=== PATIENT | male | born 1960 | race Caucasian/White ===

== ENCOUNTER 2022-11-17 19:38 | Inpatient (IN) | payer MEDICARE, MEDICAID ==
[~2022-11-17] VITALS: Ht 185.4 cm; Wt 85.5 kg
[2022-11-17 21:04] VITALS: PULSE 79; RESP 12; O2SAT 96
[2022-11-17] MEDS ORDERED: MORPHINE SULFATE 4 MG/ML SYR/VIAL IV ONE (21:15)
[2022-11-17] MEDS ORDERED: diphenhdrAMINE HCL 50 MG/1 ML VL IV ONE (21:15)
[2022-11-17] MEDS ORDERED: SODIUM CHLORIDE 0.9% 1,000 ML IVB ONE (21:15)
[2022-11-17] MEDS ORDERED: HYDROmorphone HCL 2 MG/ML VL/or syr IV ONE (21:15)
[2022-11-17] MEDS ORDERED: ONDANSETRON HCL 4 MG/2 ML VIAL IV ONE (21:15)
[2022-11-17] MEDS ORDERED: PROPOFOL 10 MG/ML 20 ML IV ONE (21:15)
[2022-11-17 23:41] LABS: Basophils # (auto) 0 10 ^3/uL (0-0.2); Basophils % (auto) 0.5 % (0.0-2.0); Eosinophils # (auto) 0.3 10 ^3/uL (0-0.8); Eosinophils % (auto) 3.4 % (0.0-7.0); Hematocrit 34.1 % (41.0-53.0); Hemoglobin 11.3 g/dL (13.5-17.5); Lymphocytes # (auto) 1.3 10 ^3/uL (0.4-5.4); Lymphocytes % (auto) 16.8 % (10.0-50.0); Mean Corpuscular Hemoglobin 32.1 pg (28.0-32.0); Mean Corpuscular Hgb Conc. 33.2 g/dL (32.0-36.0); Mean Corpuscular Volume 96.7 fL (80.0-100.0); Monocytes # (auto) 0.5 10 ^3/uL (0-1.3); Monocytes % (auto) 6.8 % (0.0-12.0); Neutrophils # (auto) 5.6 10 ^3/uL (1.6-8.6); Neutrophils % (auto) 72.5 % (37.0-80.0); Nucleated Red Blood Cells % 0.1 %; Red Blood Cells 3.52 10^6/uL (4.5-5.90); Red Cell Distribution Width 14.9 % (11.8-14.3); White Blood Cell 7.8 10^3/uL (4.4-10.8)
[2022-11-17 23:55] LABS: INR 1.14 (0.9-1.15); Partial Thromboplastin Time 29.1 SEC (24.5-34.5); Prothrombin Time 11.9 sec (9.3-11.8)
[2022-11-18] VITALS (10 sets, daily range): BP systolic 132–148; BP diastolic 72–90; PULSE 71–89; RESP 16–20; TEMP 97.5–99.1; O2SAT 93–99
[2022-11-18 00:04] LABS: Alanine Aminotransferase 20 U/L (7-40); Albumin 4.1 g/dL (3.2-4.8); Alkaline Phosphatase 60 U/L (46-116); Anion Gap 6.2 (5-15); Aspartate Aminotransferase 22 U/L (13-40); BUN/Creatinine Ratio 11.5 (10.0-20.0); Bilirubin, Total 0.2 mg/dL (0.2-1.0); Blood Urea Nitrogen 10 mg/dL (9-23); Carbon Dioxide 19.8 mmol/L (20-30); Chloride 115 mmol/L (98-107); Glucose 100 mg/dL (74-106); Magnesium 2.1 mg/dL (1.6-2.6); Potassium 3.9 mmol/L (3.5-5.1); Sodium 141 mmol/L (136-145); Total Protein 6.5 g/dL (5.7-8.2)
[2022-11-18] MEDS ORDERED: HYDROmorphone HCL 2 MG/ML VL/or syr IV ONE (01:30)
[2022-11-18] MEDS ORDERED: ONDANSETRON HCL 4 MG/2 ML VIAL IV ONE (01:30)
[2022-11-18] MEDS ORDERED: LORazepam 2MG/ML-1ML VIAL IV ONE (02:00)
[2022-11-18] MEDS ORDERED: ACETAMINOPHEN 325 MG TAB PO PRN (03:00)
[2022-11-18] MEDS ORDERED: ALBUTEROL SULF 2.5 MG/0.5ML(0.5%) NEB SOLN NEB PRN (03:00)
[2022-11-18] MEDS ORDERED: MORPHINE SULFATE INJ 2 MG/ml SYRG IV PRN (03:00)
[2022-11-18] MEDS ORDERED: ONDANSETRON HCL 4 MG/2 ML VIAL IV PRN (03:00)
[2022-11-18] MEDS ORDERED: SERT100T PO (08:33)
[2022-11-18] MEDS ORDERED: QUET25TA37 PO (08:33)
[2022-11-18] MEDS ORDERED: ALB2.5IS INH (08:33)
[2022-11-18] MEDS ORDERED: SIMV40TA18 PO (08:33)
[2022-11-18] MEDS: SERTRALINE HCL 50 MG TAB PO SCH (09:26)
[2022-11-18] MEDS: HYDROcodone-ACET 5/325MG TAB PO PRN ×2 (09:26→16:10)
[2022-11-18] MEDS: PANTOPRAZOLE 40 MG TAB PO SCH (09:26)
[2022-11-18] MEDS: QUEtiapine FUMARATE 100 MG TAB PO SCH (20:35)
[2022-11-18] MEDS: ATORVASTATIN 20 MG TAB PO SCH (20:36)
[2022-11-19] VITALS (12 sets, daily range): BP systolic 119–135; BP diastolic 64–88; PULSE 73–91; RESP 10–18; TEMP 98.3–99.7; O2SAT 92–100
[2022-11-19 05:42] LABS: Urine Bacteria NONE SEEN /hpf (None Seen); Urine Blood Negative /uL (Negative); Urine Clarity Clear (Clear); Urine Color Colorless (Yellow); Urine Protein, UAD Negative (Negative); Urine Specific Gravity 1.019 (1.001-1.035); Urine Urobilinogen Normal (Negative); Urine WBC <1 /hpf (0 - 3); Urine pH 6.5 (5.0-8.0)
[2022-11-19] MEDS ORDERED: ceFAZolin 1GM/50ML 100 ML IV ONE (06:51)
[2022-11-19 07:28] LABS: INR 1.12 (0.9-1.15); Partial Thromboplastin Time 32.2 SEC (24.5-34.5); Prothrombin Time 11.7 sec (9.3-11.8)
[2022-11-19 07:30] LABS: Alanine Aminotransferase 21 U/L (7-40); Alkaline Phosphatase 58 U/L (46-116); Anion Gap 6.6 (5-15); BUN/Creatinine Ratio 14.8 (10.0-20.0); Blood Urea Nitrogen 13 mg/dL (9-23); Calcium 9.1 mg/dL (8.5-10.1); Carbon Dioxide 25.4 mmol/L (20-30); Chloride 110 mmol/L (98-107); Glucose 108 mg/dL (74-106); Potassium 3.6 mmol/L (3.5-5.1); Sodium 142 mmol/L (136-145)
[2022-11-19 07:31] LABS: Albumin 4.2 g/dL (3.2-4.8); Aspartate Aminotransferase 17 U/L (13-40)
[2022-11-19 07:32] LABS: Bilirubin, Total 0.7 mg/dL (0.2-1.0); Total Protein 6.8 g/dL (5.7-8.2)
[2022-11-19] MEDS ORDERED: LIDOCAINE HCL (LOCAL ANESTH.) 0.5 % 50ML MDV IJ ONE (07:37)
[2022-11-19] MEDS ORDERED: TETRACAINE 1% INJ 2 ML VIAL IJ ONE (07:40)
[2022-11-19 07:42] LABS: Basophils # (auto) 0 10 ^3/uL (0-0.2); Basophils % (auto) 0.5 % (0.0-2.0); Eosinophils # (auto) 0.4 10 ^3/uL (0-0.8); Eosinophils % (auto) 5.1 % (0.0-7.0); Hematocrit 36.1 % (41.0-53.0); Hemoglobin 12.1 g/dL (13.5-17.5); Lymphocytes # (auto) 1.7 10 ^3/uL (0.4-5.4); Lymphocytes % (auto) 21.6 % (10.0-50.0); Mean Corpuscular Hemoglobin 32.3 pg (28.0-32.0); Mean Corpuscular Hgb Conc. 33.6 g/dL (32.0-36.0); Mean Corpuscular Volume 96.1 fL (80.0-100.0); Monocytes # (auto) 0.9 10 ^3/uL (0-1.3); Monocytes % (auto) 11.9 % (0.0-12.0); Neutrophils # (auto) 4.7 10 ^3/uL (1.6-8.6); Neutrophils % (auto) 60.9 % (37.0-80.0); Red Blood Cells 3.76 10^6/uL (4.5-5.90); Red Cell Distribution Width 14.7 % (11.8-14.3); White Blood Cell 7.7 10^3/uL (4.4-10.8)
[2022-11-19] MEDS ORDERED: fentaNYL CITRATE 100 MCG/2 ML VL ONE (07:42)
[2022-11-19] MEDS ORDERED: MORPHINE SULF PF 5 MG/10 ML VIAL ONE (07:42)
[2022-11-19] MEDS ORDERED: GLYCOPYRROLATE 0.2 MG/ML 1ML VIAL ONE (07:43)
[2022-11-19] MEDS ORDERED: PHENYLEPHRINE HCL 10 MG/ML VL ONE (07:43)
[2022-11-19] MEDS ORDERED: KETOROLAC TROMETH 30 MG/ML 1ML VIAL ONE (07:43)
[2022-11-19] MEDS ORDERED: PROPOFOL 10 MG/ML 20 ML IV ONE (07:43)
[2022-11-19] MEDS ORDERED: DexAMETHasone SOD PHOS 10MG/1ML VIAL INJ ONE (07:43)
[2022-11-19] MEDS ORDERED: ONDANSETRON HCL 4 MG/2 ML VIAL ONE (07:43)
[2022-11-19] MEDS ORDERED: ePHEDrine SULFATE 50 MG/ML AMP ONE (07:43)
[2022-11-19] MEDS ORDERED: MIDAZOLAM HCL 2MG/2ML 2ml VIAL (1mg/ml) ONE (07:44)
[2022-11-19] MEDS ORDERED: FAMOTIDINE (10MG/ML) 2ML VL IV ONE (07:45)
[2022-11-19] MEDS ORDERED: KETOROLAC TROMETH 30 MG/ML 1ML VIAL IV PRN (09:00)
[2022-11-19] MEDS ORDERED: DexAMETHasone SOD PHOS 10MG/1ML VIAL INJ IV PRN (09:00)
[2022-11-19] MEDS ORDERED: MORPHINE SULFATE INJ 2 MG/ml SYRG IV PRN (09:00)
[2022-11-19] MEDS ORDERED: NALOXONE HCL 0.4 MG/ML VIAL IV PRN (09:00)
[2022-11-19] MEDS ORDERED: HYDROcodone-ACET 5/325MG TAB PO PRN (09:00)
[2022-11-19] MEDS ORDERED: BISACODYL 5 MG EC TAB PO PRN (09:00)
[2022-11-19] MEDS ORDERED: ONDANSETRON HCL 4 MG/2 ML VIAL IV PRN ×3 (09:00)
[2022-11-19] MEDS ORDERED: diphenhdrAMINE HCL 50 MG/1 ML VL IV PRN (09:00)
[2022-11-19] MEDS: DOCUSATE SOD 100 MG CAP PO SCH ×2 (10:22→21:25)
[2022-11-19] MEDS: SERTRALINE HCL 50 MG TAB PO SCH (10:22)
[2022-11-19] MEDS: PANTOPRAZOLE 40 MG TAB PO SCH (10:22)
[2022-11-19] MEDS: ceFAZolin 1GM/50ML 50 ML IV SCH ×2 (15:04→20:20)
[2022-11-19] MEDS: SODIUM CHLOR 0.9% PF (SALINE LOCK) 10ML VIAL/SYR IV SCH ×2 (15:04→21:30)
[2022-11-19] MEDS: ATORVASTATIN 20 MG TAB PO SCH (21:24)
[2022-11-19] MEDS: QUEtiapine FUMARATE 100 MG TAB PO SCH (21:25)
[2022-11-20] VITALS (13 sets, daily range): BP systolic 122–154; BP diastolic 65–84; PULSE 66–95; RESP 15–20; TEMP 97.2–98.5; O2SAT 92–99
[2022-11-20] MEDS: ceFAZolin 1GM/50ML 50 ML IV SCH (04:15)
[2022-11-20] MEDS: SODIUM CHLOR 0.9% PF (SALINE LOCK) 10ML VIAL/SYR IV SCH (06:19)
[2022-11-20] MEDS: SERTRALINE HCL 50 MG TAB PO SCH (09:09)
[2022-11-20] MEDS: DOCUSATE SOD 100 MG CAP PO SCH (09:09)
[2022-11-20] MEDS: PANTOPRAZOLE 40 MG TAB PO SCH (09:10)
[2022-11-20] MEDS ORDERED: HYDR-4902 PO (10:24)
[2022-11-20] MEDS ORDERED: CEPH500C PO (10:24)
== END 2022-11-20 12:30 | disposition home or self-care (01) | DRG 505 ==
LOC: EDBD 19:38 → ER 19:41 → OVERFLOW 11-18 02:52 → EAST 11-18 06:21
PROVIDERS: ADMIT Nurse Practitioner; ATTEND Family Medicine
PROC: 0SSFXZZ Reposition Right Ankle Joint, External Approach (ICD-10-PCS; 2022-11-17)
PROC: BQ1GZZZ Fluoroscopy of Right Ankle (ICD-10-PCS; 2022-11-19)
PROC: 0QSL04Z Reposition Right Tarsal with Internal Fixation Device, Open Approach (ICD-10-PCS; principal; 2022-11-19 07:47)
DX: S93.04XA Dislocation of right ankle joint, initial encounter (principal); E78.5 Hyperlipidemia, unspecified; J44.9 Chronic obstructive pulmonary disease, unspecified; F20.9 Schizophrenia, unspecified; F17.210 Nicotine dependence, cigarettes, uncomplicated; F31.9 Bipolar disorder, unspecified; F41.9 Anxiety disorder, unspecified; Y93.89 Activity, other specified; Y92.89 Other specified places as the place of occurrence of the external cause; Y99.8 Other external cause status; W01.0XXA Fall on same level from slipping, tripping and stumbling without subsequent striking against object, initial encounter
CPT/HCPCS: 36415; 71045; 73590; 73600; 73610; 76000; 80053; 81001; 83735; 85025; 85610; 85730; 86850; 86900; 86901; 93005; 97110; 97116; 97163; G0378; J0690; J1100; J1885; J2250; J2405; J2704; J3490

== ENCOUNTER 2022-12-22 14:49 | Emergency (ER) | payer MEDICARE, MEDICAID ==
[~2022-12-22] VITALS: Ht 182.9 cm; Wt 90.0 kg
[~2022-12-22 14:49] MED LIST: ALB2.5IS INH; CEPH500C PO; HYDR-4902 PO; QUET25TA37 PO; SERT100T PO; SIMV40TA18 PO
[2022-12-22 15:43] VITALS: BP 124/77; PULSE 83; RESP 18; TEMP 98.9; O2SAT 94
[2022-12-22] MEDS ORDERED: cefTRIAXone 1GM/50ML D5W 50 ML IV ONE (16:15)
[2022-12-22] MEDS ORDERED: BACDST PO (17:24)
== END 2022-12-22 17:30 | disposition home or self-care (01) ==
LOC: ER 14:49
DX: L03.115 Cellulitis of right lower limb (principal); J44.9 Chronic obstructive pulmonary disease, unspecified; Z79.899 Other long term (current) drug therapy
CPT/HCPCS: 73590; 96365; 99284; J0696

== ENCOUNTER 2023-01-02 10:32 | Inpatient (IN) | payer MEDICARE, MEDICAID ==
[~2023-01-02] VITALS: Ht 182.9 cm; Wt 96.0 kg
[~2023-01-02 10:32] MED LIST changes: +BACDST PO
[2023-01-02 11:22] VITALS: BP 123/75; PULSE 67; RESP 18; TEMP 97.5; O2SAT 97
[2023-01-02 11:30] VITALS: O2SAT 97
[2023-01-02] MEDS ORDERED: SIMV40TA18 PO (11:39)
[2023-01-02] MEDS ORDERED: QUET400T13 PO (12:49)
[2023-01-02] MEDS ORDERED: QUET200T45 PO (12:49)
[2023-01-02] MEDS ORDERED: IBUP-1455 PO (12:49)
[2023-01-02] MEDS ORDERED: VANCOMYCIN PER PHARMACY 0 MG IV SCH ×2 (13:15)
[2023-01-02] MEDS ORDERED: IPRATROPIUM BROM 0.5 MG/2.5ML INH SOL NEB PRN (13:15)
[2023-01-02] MEDS ORDERED: MORPHINE SULFATE INJ 2 MG/ml SYRG IV PRN (13:15)
[2023-01-02] MEDS ORDERED: ALBUTEROL SULF 2.5 MG/0.5ML(0.5%) NEB SOLN NEB PRN (13:15)
[2023-01-02] MEDS ORDERED: ACETAMINOPHEN 325 MG TAB PO PRN (13:15)
[2023-01-02] MEDS ORDERED: ONDANSETRON HCL 4 MG/2 ML VIAL IV PRN (13:15)
[2023-01-02] MEDS ORDERED: DOCUSATE SOD 100 MG CAP PO PRN (13:15)
[2023-01-02] MEDS: SODIUM CHLORIDE 0.9% 1,000 ML IV SCH ×2 (13:37→21:35)
[2023-01-02] MEDS ORDERED: CEFEPIME 1GM/ 50ML 50 ML IV ONE (14:00)
[2023-01-02] MEDS ORDERED: VANCOMYCIN 1GM/250ML 250 ML IV ONE (14:30)
[2023-01-02 14:33] LABS: Basophils # (auto) 0 10 ^3/uL (0-0.2); Basophils % (auto) 0.6 % (0.0-2.0); Eosinophils # (auto) 0.3 10 ^3/uL (0-0.8); Eosinophils % (auto) 4.3 % (0.0-7.0); Hematocrit 36.3 % (41.0-53.0); Hemoglobin 12.1 g/dL (13.5-17.5); Lymphocytes # (auto) 1.2 10 ^3/uL (0.4-5.4); Lymphocytes % (auto) 16.3 % (10.0-50.0); Mean Corpuscular Hemoglobin 32.6 pg (28.0-32.0); Mean Corpuscular Hgb Conc. 33.2 g/dL (32.0-36.0); Mean Corpuscular Volume 98.1 fL (80.0-100.0); Monocytes # (auto) 0.5 10 ^3/uL (0-1.3); Monocytes % (auto) 6.6 % (0.0-12.0); Neutrophils # (auto) 5.2 10 ^3/uL (1.6-8.6); Neutrophils % (auto) 72.2 % (37.0-80.0); Red Cell Distribution Width 14.2 % (11.8-14.3); White Blood Cell 7.2 10^3/uL (4.4-10.8)
[2023-01-02 14:53] LABS: INR 1.17 (0.9-1.15); Prothrombin Time 12.2 sec (9.3-11.8)
[2023-01-02 14:56] LABS: Alanine Aminotransferase 18 U/L (7-40); Albumin 4.4 g/dL (3.2-4.8); Alkaline Phosphatase 59 U/L (46-116); Anion Gap 6 (5-15); Aspartate Aminotransferase 16 U/L (13-40); BUN/Creatinine Ratio 15.8 (10.0-20.0); Bilirubin, Total 0.2 mg/dL (0.2-1.0); Blood Urea Nitrogen 15 mg/dL (9-23); Calcium 8.8 mg/dL (8.5-10.1); Carbon Dioxide 22 mmol/L (20-30); Chloride 113 mmol/L (98-107); Glucose 116 mg/dL (74-106); Potassium 3.5 mmol/L (3.5-5.1); Sodium 141 mmol/L (136-145)
[2023-01-02 14:57] LABS: Total Protein 6.8 g/dL (5.7-8.2)
[2023-01-02 15:40] VITALS: BP 123/75; PULSE 74; RESP 20; TEMP 97.5; O2SAT 98
[2023-01-02 16:39] VITALS: BP 139/73; PULSE 65; RESP 19; TEMP 98.3; O2SAT 95
[2023-01-02 19:06] VITALS: O2SAT 96
[2023-01-02 20:24] LABS: Urine WBC None Seen /hpf (0 - 3)
[2023-01-02 20:38] LABS: Urine Bacteria NONE SEEN /hpf (None Seen); Urine Blood Negative /uL (Negative); Urine Clarity Clear (Clear); Urine Color Colorless (Yellow); Urine Protein, UAD Negative (Negative); Urine Specific Gravity 1.014 (1.001-1.035); Urine Urobilinogen Normal (Negative); Urine pH 6.5 (5.0-8.0)
[2023-01-02] MEDS: CEFEPIME 1GM/ 50ML 50 ML IV SCH (21:11)
[2023-01-02 22:00] VITALS: BP 131/79; PULSE 65; RESP 18; TEMP 98.5; O2SAT 97
[2023-01-02] MEDS ORDERED: QUEtiapine FUMARATE 100 MG TAB PO SCH (22:00)
[2023-01-03] MEDS: CEFEPIME 1GM/ 50ML 50 ML IV SCH ×3 (03:00→21:24)
[2023-01-03 05:00] VITALS: BP 121/66; PULSE 75; RESP 18; TEMP 97.8; O2SAT 95
[2023-01-03] MEDS: SODIUM CHLORIDE 0.9% 1,000 ML IV SCH (05:55)
[2023-01-03] MEDS ORDERED: BUPIVACAINE 0.5% P/F INJ 10 ML VIAL ONE (06:58)
[2023-01-03] MEDS ORDERED: PROPOFOL 10 MG/ML 20 ML IV ONE ×3 (07:00→09:12)
[2023-01-03] MEDS ORDERED: EPINEPHrine HCL 1 MG/1 ML AMP ONE (07:00)
[2023-01-03] MEDS ORDERED: NALOXONE HCL 1MG/ML 2ML SYRINGE ONE (07:00)
[2023-01-03] MEDS ORDERED: DexAMETHasone SOD PHOS 10MG/1ML VIAL INJ ONE (07:00)
[2023-01-03] MEDS ORDERED: fentaNYL CITRATE 100 MCG/2 ML VL ONE (07:00)
[2023-01-03] MEDS ORDERED: MIDAZOLAM HCL 2MG/2ML 2ml VIAL (1mg/ml) ONE ×2 (07:00→07:40)
[2023-01-03] MEDS ORDERED: ONDANSETRON HCL 4 MG/2 ML VIAL ONE (07:00)
[2023-01-03] MEDS ORDERED: MORPHINE SULFATE INJ 2 MG/ml SYRG IV PRN (07:15)
[2023-01-03] MEDS ORDERED: METOCLOPRAMIDE HCL 5MG/ml INJ 2ml VIAL IV PRN (07:15)
[2023-01-03] MEDS ORDERED: HYDROmorphone HCL 2 MG/ML VL/or syr IV PRN ×3 (07:15→11:00)
[2023-01-03] MEDS ORDERED: VANCOMYCIN HCL 1000 MG VL ONE (07:32)
[2023-01-03 09:50] VITALS: PULSE 62; RESP 16; O2SAT 97
[2023-01-03] MEDS ORDERED: SERTRALINE HCL 50 MG TAB PO SCH (10:00)
[2023-01-03] MEDS ORDERED: D5W/SOD CHL 0.45%/KCL 20MEQ 1,000 ML IV SCH (10:45)
[2023-01-03] MEDS: HYDROmorphone HCL 2 MG/ML VL/or syr IV PRN ×7 (11:00→21:51)
[2023-01-03] MEDS ORDERED: ACETAMINOPHEN IV 1000 MG/100ML (10MG/ML) IV ONE (11:30)
[2023-01-03] MEDS ORDERED: KETOROLAC TROMETH 60MG/2ML VIAL IM ONE (12:15)
[2023-01-03] MEDS ORDERED: KETOROLAC TROMETH 60MG/2ML VIAL IV ONE (12:15)
[2023-01-03] MEDS: VANCOMYCIN 1GM/250ML 250 ML IV SCH ×2 (14:21)
[2023-01-03 16:45] VITALS: BP 128/68; PULSE 75; RESP 18; TEMP 98.2; O2SAT 95
[2023-01-03] MEDS: D5W/SOD CHL 0.45%/KCL 20MEQ 1,000 ML IV SCH ×2 (19:01→21:27)
[2023-01-03 20:00] VITALS: BP 140/89; PULSE 79; RESP 19; TEMP 98.2; O2SAT 97
[2023-01-03] MEDS: ATORVASTATIN 20 MG TAB PO SCH (21:25)
[2023-01-03] MEDS: QUEtiapine FUMARATE 100 MG TAB PO SCH (21:26)
[2023-01-03] MEDS: SERTRALINE HCL 50 MG TAB PO SCH (21:27)
[2023-01-03] MEDS ORDERED: ATORVASTATIN 20 MG TAB PO SCH (22:00)
[2023-01-03 22:41] VITALS: O2SAT 97
[2023-01-03 23:58] VITALS: BP 94/30; PULSE 5; RESP 18; TEMP 97.7; O2SAT 97
[2023-01-04] VITALS (7 sets, daily range): BP systolic 115–135; BP diastolic 59–71; PULSE 70–91; RESP 16–20; TEMP 98.2–98.9; O2SAT 90–98
[2023-01-04] MEDS: VANCOMYCIN 1GM/250ML 250 ML IV SCH ×3 (00:24→19:54)
[2023-01-04] MEDS: HYDROmorphone HCL 2 MG/ML VL/or syr IV PRN ×4 (06:18→19:55)
[2023-01-04] MEDS: CEFEPIME 1GM/ 50ML 50 ML IV SCH ×3 (06:22→21:31)
[2023-01-04] MEDS: D5W/SOD CHL 0.45%/KCL 20MEQ 1,000 ML IV SCH ×2 (09:00→19:53)
[2023-01-04] MEDS ORDERED: QUEtiapine FUMARATE 100 MG TAB ONE ×2 (21:17→21:20)
[2023-01-04] MEDS: SERTRALINE HCL 50 MG TAB PO SCH (21:31)
[2023-01-04] MEDS: QUEtiapine FUMARATE 100 MG TAB PO SCH (21:31)
[2023-01-04] MEDS: ATORVASTATIN 20 MG TAB PO SCH (21:31)
[2023-01-05] VITALS (7 sets, daily range): BP systolic 102–129; BP diastolic 52–70; PULSE 74–96; RESP 15–19; TEMP 98.4–98.8; O2SAT 95–97
[2023-01-05] MEDS: CEFEPIME 1GM/ 50ML 50 ML IV SCH ×3 (04:44→22:39)
[2023-01-05] MEDS: D5W/SOD CHL 0.45%/KCL 20MEQ 1,000 ML IV SCH ×4 (04:45→22:43)
[2023-01-05] MEDS: VANCOMYCIN 1GM/250ML 250 ML IV SCH ×3 (06:23→23:54)
[2023-01-05] MEDS: HYDROmorphone HCL 2 MG/ML VL/or syr IV PRN (09:24)
[2023-01-05] MEDS: HYDROcodone-ACET 5/325MG TAB PO PRN ×2 (13:12→17:49)
[2023-01-05] MEDS: QUEtiapine FUMARATE 100 MG TAB PO SCH (22:39)
[2023-01-05] MEDS: SERTRALINE HCL 50 MG TAB PO SCH (22:40)
[2023-01-05] MEDS: ATORVASTATIN 20 MG TAB PO SCH (22:40)
[2023-01-06 05:00] VITALS: BP 126/67; PULSE 96; RESP 16; TEMP 98.4; O2SAT 97
[2023-01-06] MEDS: CEFEPIME 1GM/ 50ML 50 ML IV SCH ×3 (05:35→21:33)
[2023-01-06 08:10] LABS: Basophils # (auto) 0 10 ^3/uL (0-0.2); Basophils % (auto) 0.4 % (0.0-2.0); Eosinophils # (auto) 0.2 10 ^3/uL (0-0.8); Eosinophils % (auto) 3.4 % (0.0-7.0); Hematocrit 34.3 % (41.0-53.0); Hemoglobin 11.4 g/dL (13.5-17.5); Lymphocytes # (auto) 0.9 10 ^3/uL (0.4-5.4); Lymphocytes % (auto) 14.2 % (10.0-50.0); Mean Corpuscular Hemoglobin 32.6 pg (28.0-32.0); Mean Corpuscular Hgb Conc. 33.4 g/dL (32.0-36.0); Mean Corpuscular Volume 97.8 fL (80.0-100.0); Monocytes # (auto) 0.9 10 ^3/uL (0-1.3); Monocytes % (auto) 13.3 % (0.0-12.0); Neutrophils # (auto) 4.5 10 ^3/uL (1.6-8.6); Neutrophils % (auto) 68.7 % (37.0-80.0); Red Cell Distribution Width 13.6 % (11.8-14.3); White Blood Cell 6.6 10^3/uL (4.4-10.8)
[2023-01-06 08:24] LABS: Alanine Aminotransferase 29 U/L (7-40); Alkaline Phosphatase 60 U/L (46-116); Anion Gap 8 (5-15); BUN/Creatinine Ratio 13.6 (10.0-20.0); Blood Urea Nitrogen 12 mg/dL (9-23); Calcium 9.2 mg/dL (8.5-10.1); Carbon Dioxide 23 mmol/L (20-30); Chloride 111 mmol/L (98-107); Glucose 106 mg/dL (74-106); Potassium 3.7 mmol/L (3.5-5.1); Sodium 142 mmol/L (136-145)
[2023-01-06 08:25] LABS: Albumin 4.1 g/dL (3.2-4.8)
[2023-01-06 08:26] LABS: Aspartate Aminotransferase 19 U/L (13-40); Bilirubin, Total 0.4 mg/dL (0.2-1.0); Total Protein 6.8 g/dL (5.7-8.2)
[2023-01-06 08:38] LABS: Erythrocyte Sedimentation Rate 66 mm/hr (0-20)
[2023-01-06] MEDS: VANCOMYCIN 1GM/250ML 250 ML IV SCH ×3 (09:46→18:29)
[2023-01-06] MEDS: HYDROcodone-ACET 5/325MG TAB PO PRN (11:40)
[2023-01-06 13:00] VITALS: BP 116/69; PULSE 82; RESP 18; TEMP 98.4; O2SAT 99
[2023-01-06 17:00] VITALS: BP 112/71; PULSE 72; RESP 18; TEMP 98.6; O2SAT 97
[2023-01-06 20:00] VITALS: PULSE 77; RESP 16; O2SAT 96
[2023-01-06] MEDS: QUEtiapine FUMARATE 100 MG TAB PO SCH (21:01)
[2023-01-06] MEDS: ATORVASTATIN 20 MG TAB PO SCH (21:02)
[2023-01-06] MEDS: SERTRALINE HCL 50 MG TAB PO SCH (21:03)
[2023-01-06 22:00] VITALS: BP 128/73; PULSE 77; RESP 16; TEMP 98.4; O2SAT 96
[2023-01-07] MEDS: VANCOMYCIN 1GM/250ML 250 ML IV SCH ×2 (01:30→08:40)
[2023-01-07 05:00] VITALS: BP 140/84; PULSE 78; RESP 18; TEMP 98.1; O2SAT 99
[2023-01-07] MEDS: CEFEPIME 1GM/ 50ML 50 ML IV SCH (05:55)
[2023-01-07] MEDS ORDERED: DOXY-346 PO (11:17)
[2023-01-07] MEDS ORDERED: HYDR1TAB97 PO (11:17)
[2023-01-07 11:44] VITALS: BP 117/75; PULSE 75; RESP 16; TEMP 98.4; O2SAT 98
== END 2023-01-07 13:10 | disposition home or self-care (01) | DRG 496 ==
LOC: TELE-WESTW 10:35 → WEST WING 01-05 10:44
PROVIDERS: ADMIT Nurse Practitioner Family; ATTEND Internal Medicine
PROC: 0QWJ04Z Revision of Internal Fixation Device in Right Fibula, Open Approach (ICD-10-PCS; principal; 2023-01-03 07:35)
DX: T84.59XA Infection and inflammatory reaction due to other internal joint prosthesis, initial encounter (principal); L03.113 Cellulitis of right upper limb; L03.115 Cellulitis of right lower limb; F20.9 Schizophrenia, unspecified; J44.9 Chronic obstructive pulmonary disease, unspecified; D64.9 Anemia, unspecified; E78.5 Hyperlipidemia, unspecified; Y83.8 Other surgical procedures as the cause of abnormal reaction of the patient, or of later complication, without mention of misadventure at the time of the procedure; Z91.199 Patient's noncompliance with other medical treatment and regimen due to unspecified reason; Y92.89 Other specified places as the place of occurrence of the external cause
CPT/HCPCS: 36415; 71045; 73600; 76000; 80053; 80202; 81001; 82565; 85025; 85610; 85652; 86850; 86900; 86901; 87205; 93005; G0378; J0131; J0171; J1100; J1885; J2250; J2405; J2704; J3490

== ENCOUNTER 2023-02-03 09:45 | Inpatient (IN) | payer MEDICARE, MEDICAID ==
[~2023-02-03] VITALS: Ht 182.9 cm; Wt 85.8 kg
[~2023-02-03 09:45] MED LIST changes: +DOXY-346 PO; +HYDR1TAB97 PO; +IBUP-1455 PO; +QUET200T45 PO; +QUET400T13 PO
[2023-02-03 10:37] LABS: Basophils # (auto) 0 10 ^3/uL (0-0.2); Basophils % (auto) 0.3 % (0.0-2.0); Eosinophils # (auto) 0.5 10 ^3/uL (0-0.8); Eosinophils % (auto) 8.9 % (0.0-7.0); Hematocrit 34.4 % (41.0-53.0); Hemoglobin 11.6 g/dL (13.5-17.5); Lymphocytes # (auto) 0.8 10 ^3/uL (0.4-5.4); Lymphocytes % (auto) 13.9 % (10.0-50.0); Mean Corpuscular Hemoglobin 32.9 pg (28.0-32.0); Mean Corpuscular Hgb Conc. 33.7 g/dL (32.0-36.0); Mean Corpuscular Volume 97.6 fL (80.0-100.0); Monocytes # (auto) 0.4 10 ^3/uL (0-1.3); Monocytes % (auto) 7.7 % (0.0-12.0); Neutrophils # (auto) 3.9 10 ^3/uL (1.6-8.6); Neutrophils % (auto) 69.2 % (37.0-80.0); Red Blood Cells 3.53 10^6/uL (4.5-5.90); Red Cell Distribution Width 14.2 % (11.8-14.3); White Blood Cell 5.7 10^3/uL (4.4-10.8)
[2023-02-03 11:15] LABS: Alanine Aminotransferase 22 U/L (7-40); Albumin 4.5 g/dL (3.2-4.8); Alkaline Phosphatase 66 U/L (46-116); Anion Gap 9 (5-15); BUN/Creatinine Ratio 10.3 (10.0-20.0); Blood Urea Nitrogen 12 mg/dL (9-23); Calcium 9.3 mg/dL (8.5-10.1); Carbon Dioxide 20 mmol/L (20-30); Chloride 111 mmol/L (98-107); Glucose 106 mg/dL (74-106); Potassium 4.3 mmol/L (3.5-5.1); Sodium 140 mmol/L (136-145)
[2023-02-03 11:16] LABS: Aspartate Aminotransferase 19 U/L (13-40); Bilirubin, Total 0.2 mg/dL (0.2-1.0); Total Protein 7.1 g/dL (5.7-8.2)
[2023-02-03] MEDS ORDERED: CLINDAMYCIN 600MG IV 50 ML IV ONE (11:30)
[2023-02-03] MEDS ORDERED: cefTRIAXone 1GM/50ML D5W 50 ML IV ONE (11:30)
[2023-02-03] MEDS ORDERED: DOCUSATE SOD 100 MG CAP PO PRN (11:45)
[2023-02-03] MEDS ORDERED: ALBUTEROL MEDNEB 2.5 mg/3ml NEB NEB PRN (11:45)
[2023-02-03] MEDS ORDERED: IPRATROPIUM BROM 0.5 MG/2.5ML INH SOL NEB PRN (11:45)
[2023-02-03] MEDS ORDERED: ONDANSETRON HCL 4 MG/2 ML VIAL IV PRN (11:45)
[2023-02-03] MEDS ORDERED: VANCOMYCIN PER PHARMACY 0 MG IV SCH (11:45)
[2023-02-03] MEDS ORDERED: VANCOMYCIN 1GM/250ML 250 ML IV ONE (12:15)
[2023-02-03 13:11] LABS: Urine Bacteria NONE SEEN /hpf (None Seen); Urine Blood Negative /uL (Negative); Urine Clarity Clear (Clear); Urine Color Yellow (Yellow); Urine Protein, UAD TRACE (Negative); Urine Specific Gravity 1.024 (1.001-1.035); Urine Urobilinogen Normal (Negative); Urine WBC <1 /hpf (0 - 3); Urine pH 6.5 (5.0-8.0)
[2023-02-03 14:06] LABS: Erythrocyte Sedimentation Rate 25 mm/hr (0-20)
[2023-02-03] MEDS: CEFEPIME 2GM/50ML NS 50 ML IV SCH ×2 (14:31→22:54)
[2023-02-03 15:41] VITALS: BP 148/77; PULSE 86; RESP 16; TEMP 98.1; O2SAT 94
[2023-02-03] MEDS: MORPHINE SULFATE INJ 2 MG/ml SYRG IV PRN ×2 (16:01→20:58)
[2023-02-03 20:06] VITALS: BP 134/74; PULSE 93; RESP 18; TEMP 98.1; O2SAT 94
[2023-02-03 22:00] VITALS: BP 134/74; PULSE 93; RESP 18; TEMP 98.1; O2SAT 94
[2023-02-04] VITALS (7 sets, daily range): BP systolic 120–151; BP diastolic 73–88; PULSE 71–92; RESP 16–20; TEMP 97.8–98.5; O2SAT 93–99
[2023-02-04] MEDS: MORPHINE SULFATE INJ 2 MG/ml SYRG IV PRN ×4 (02:00→15:52)
[2023-02-04] MEDS: VANCOMYCIN 1GM/250ML 250 ML IV SCH ×2 (02:04→15:43)
[2023-02-04] MEDS: CEFEPIME 2GM/50ML NS 50 ML IV SCH ×2 (05:43→15:43)
[2023-02-04 05:52] LABS: Alanine Aminotransferase 19 U/L (7-40); Albumin 4.3 g/dL (3.2-4.8); Alkaline Phosphatase 58 U/L (46-116); Anion Gap 7 (5-15); Aspartate Aminotransferase 17 U/L (13-40); Bilirubin, Total 0.2 mg/dL (0.2-1.0); Blood Urea Nitrogen 11 mg/dL (9-23); Calcium 9.2 mg/dL (8.5-10.1); Carbon Dioxide 22 mmol/L (20-30); Chloride 112 mmol/L (98-107); Glucose 110 mg/dL (74-106); Potassium 4.2 mmol/L (3.5-5.1); Sodium 141 mmol/L (136-145); Total Protein 6.8 g/dL (5.7-8.2)
[2023-02-04 06:15] LABS: Basophils # (auto) 0 10 ^3/uL (0-0.2); Basophils % (auto) 0.3 % (0.0-2.0); Eosinophils # (auto) 0.6 10 ^3/uL (0-0.8); Eosinophils % (auto) 9.5 % (0.0-7.0); Hematocrit 35.4 % (41.0-53.0); Hemoglobin 11.6 g/dL (13.5-17.5); Lymphocytes # (auto) 1.2 10 ^3/uL (0.4-5.4); Lymphocytes % (auto) 17.2 % (10.0-50.0); Mean Corpuscular Hemoglobin 32.1 pg (28.0-32.0); Mean Corpuscular Hgb Conc. 32.8 g/dL (32.0-36.0); Mean Corpuscular Volume 97.8 fL (80.0-100.0); Monocytes # (auto) 0.8 10 ^3/uL (0-1.3); Monocytes % (auto) 11.2 % (0.0-12.0); Neutrophils # (auto) 4.2 10 ^3/uL (1.6-8.6); Neutrophils % (auto) 61.8 % (37.0-80.0); Red Blood Cells 3.62 10^6/uL (4.5-5.90); Red Cell Distribution Width 14.1 % (11.8-14.3); White Blood Cell 6.8 10^3/uL (4.4-10.8)
[2023-02-04] MEDS ORDERED: QUEtiapine FUMARATE 100 MG TAB PO SCH (07:00)
[2023-02-04] MEDS ORDERED: SERTRALINE HCL 50 MG TAB PO SCH (10:00)
[2023-02-04] MEDS ORDERED: ATORVASTATIN 20 MG TAB PO SCH (10:00)
== END 2023-02-04 18:35 | disposition left against medical advice (07) | DRG 603 ==
LOC: ER 09:45 → OVERFLOW 11:48 → CENTRAL 18:10
PROVIDERS: ADMIT Internal Medicine; ATTEND Emergency Medicine
DX: L03.115 Cellulitis of right lower limb (principal); E78.5 Hyperlipidemia, unspecified; F20.9 Schizophrenia, unspecified; J44.9 Chronic obstructive pulmonary disease, unspecified; Z79.891 Long term (current) use of opiate analgesic; Z79.899 Other long term (current) drug therapy; Z79.2 Long term (current) use of antibiotics; Z91.199 Patient's noncompliance with other medical treatment and regimen due to unspecified reason
CPT/HCPCS: 36415; 73700; 80053; 81001; 85025; 85652; 86141; 87040; 87077; 87081; 87186; 87205; 93971; 96365; 96367; 96375; G0378; J0692; J0696; J3490

== ENCOUNTER 2023-02-07 09:21 | Inpatient (IN) | payer MEDICARE, MEDICAID ==
[~2023-02-07] VITALS: Ht 182.9 cm; Wt 90.1 kg
[~2023-02-07 09:21] MED LIST changes: -BACDST PO; -CEPH500C PO; -DOXY-346 PO; -HYDR-4902 PO; -HYDR1TAB97 PO; -QUET25TA37 PO
[2023-02-07 10:43] LABS: Basophils # (auto) 0 10 ^3/uL (0-0.2); Basophils % (auto) 0.6 % (0.0-2.0); Eosinophils # (auto) 0.5 10 ^3/uL (0-0.8); Eosinophils % (auto) 7.2 % (0.0-7.0); Hematocrit 36.1 % (41.0-53.0); Hemoglobin 11.7 g/dL (13.5-17.5); Lymphocytes # (auto) 1.2 10 ^3/uL (0.4-5.4); Lymphocytes % (auto) 18.7 % (10.0-50.0); Mean Corpuscular Hemoglobin 31.9 pg (28.0-32.0); Mean Corpuscular Hgb Conc. 32.4 g/dL (32.0-36.0); Mean Corpuscular Volume 98.2 fL (80.0-100.0); Monocytes # (auto) 0.7 10 ^3/uL (0-1.3); Monocytes % (auto) 10.6 % (0.0-12.0); Neutrophils # (auto) 4.1 10 ^3/uL (1.6-8.6); Neutrophils % (auto) 62.9 % (37.0-80.0); Red Blood Cells 3.68 10^6/uL (4.5-5.90); Red Cell Distribution Width 14.2 % (11.8-14.3); White Blood Cell 6.5 10^3/uL (4.4-10.8)
[2023-02-07 11:00] LABS: Alanine Aminotransferase 24 U/L (7-40); Alkaline Phosphatase 84 U/L (46-116); Anion Gap 9 (5-15); Aspartate Aminotransferase 16 U/L (13-40); BUN/Creatinine Ratio 11.1 (10.0-20.0); Blood Urea Nitrogen 12 mg/dL (9-23); Calcium 9.3 mg/dL (8.5-10.1); Carbon Dioxide 16 mmol/L (20-30); Chloride 112 mmol/L (98-107); Glucose 106 mg/dL (74-106); Potassium 3.7 mmol/L (3.5-5.1); Sodium 137 mmol/L (136-145)
[2023-02-07 11:01] LABS: Albumin 4.7 g/dL (3.2-4.8); Bilirubin, Total < 0.2 mg/dL (0.2-1.0); Total Protein 7.4 g/dL (5.7-8.2)
[2023-02-07 13:04] LABS: Erythrocyte Sedimentation Rate 36 mm/hr (0-20)
[2023-02-07] MEDS ORDERED: CLINDAMYCIN 600MG IV 50 ML IV ONE (16:30)
[2023-02-07] MEDS ORDERED: ACETAMINOPHEN 325 MG TAB PO PRN (17:45)
[2023-02-07] MEDS ORDERED: ONDANSETRON HCL 4 MG/2 ML VIAL IV PRN (17:45)
[2023-02-07 19:30] VITALS: PULSE 81; RESP 16; O2SAT 93
[2023-02-07] MEDS: SODIUM CHLORIDE 0.9% 1,000 ML IV SCH ×2 (19:48→23:21)
[2023-02-07] MEDS: ASCORBIC ACID 500 MG TAB PO SCH (22:26)
[2023-02-07 22:36] VITALS: PULSE 94; RESP 18; O2SAT 97
[2023-02-07 23:36] VITALS: BP 119/70; PULSE 97; RESP 18; TEMP 98.2; O2SAT 94
[2023-02-08] VITALS (7 sets, daily range): BP systolic 94–134; BP diastolic 71–80; PULSE 77–87; RESP 16–19; TEMP 98.1–99; O2SAT 94–99
[2023-02-08] MEDS ORDERED: CLINDAMYCIN 600MG IV 50 ML IV SCH (02:00)
[2023-02-08 06:40] LABS: Alanine Aminotransferase 19 U/L (7-40); Alkaline Phosphatase 65 U/L (46-116); Anion Gap 7 (5-15); Blood Urea Nitrogen 17 mg/dL (9-23); Calcium 8.6 mg/dL (8.7-10.4); Carbon Dioxide 21 mmol/L (20-30); Chloride 113 mmol/L (98-107); Glucose 96 mg/dL (74-106); Sodium 141 mmol/L (136-145)
[2023-02-08 06:42] LABS: Albumin 4.1 g/dL (3.2-4.8); Aspartate Aminotransferase 15 U/L (13-40); Bilirubin, Total 0.3 mg/dL (0.2-1.0); Total Protein 6.5 g/dL (5.7-8.2)
[2023-02-08 06:44] LABS: Basophils # (auto) 0 10 ^3/uL (0-0.2); Basophils % (auto) 0.8 % (0.0-2.0); Eosinophils # (auto) 0.6 10 ^3/uL (0-0.8); Eosinophils % (auto) 9.9 % (0.0-7.0); Hematocrit 33.7 % (41.0-53.0); Lymphocytes # (auto) 1.5 10 ^3/uL (0.4-5.4); Lymphocytes % (auto) 24.6 % (10.0-50.0); Mean Corpuscular Hemoglobin 31.6 pg (28.0-32.0); Mean Corpuscular Hgb Conc. 32.7 g/dL (32.0-36.0); Mean Corpuscular Volume 96.5 fL (80.0-100.0); Monocytes # (auto) 0.7 10 ^3/uL (0-1.3); Monocytes % (auto) 12.1 % (0.0-12.0); Neutrophils # (auto) 3.2 10 ^3/uL (1.6-8.6); Neutrophils % (auto) 52.6 % (37.0-80.0); Red Blood Cells 3.49 10^6/uL (4.5-5.90); Red Cell Distribution Width 13.9 % (11.8-14.3); White Blood Cell 6.1 10^3/uL (4.4-10.8)
[2023-02-08] MEDS: ENOXAPARIN SOD 40 MG/0.4 ML SYRINGE SC SCH (10:00)
[2023-02-08] MEDS: ASCORBIC ACID 500 MG TAB PO SCH ×2 (10:00→20:59)
[2023-02-08] MEDS: MULTIPLE VITAMIN TAB PO SCH (10:00)
[2023-02-08] MEDS: ZINC SULFATE 220mg CAP or TAB PO SCH (10:00)
[2023-02-08] MEDS ORDERED: VANCOMYCIN PER PHARMACY 0 MG IV SCH (10:15)
[2023-02-08] MEDS ORDERED: VANCOMYCIN 1GM/250ML 250 ML IV ONE (10:15)
[2023-02-08 11:31] LABS: INR 1.23 (0.9-1.15); Prothrombin Time 12.7 sec (9.3-11.8)
[2023-02-08] MEDS: D5W/SOD CHL 0.45% 1,000 ML IV SCH ×2 (11:42→20:44)
[2023-02-08] MEDS: HYDROcodone-ACET 5/325MG TAB PO PRN (12:33)
[2023-02-08] MEDS ORDERED: VANCOMYCIN HCL 1000 MG VL ONE ×3 (17:55→17:58)
[2023-02-08] MEDS ORDERED: MIDAZOLAM HCL 2MG/2ML 2ml VIAL (1mg/ml) ONE (18:01)
[2023-02-08] MEDS ORDERED: fentaNYL CITRATE 100 MCG/2 ML VL ONE ×2 (18:01→18:25)
[2023-02-08] MEDS ORDERED: PROPOFOL 10 MG/ML 20 ML IV ONE ×2 (18:04→18:40)
[2023-02-08] MEDS ORDERED: ONDANSETRON HCL 4 MG/2 ML VIAL ONE (18:31)
[2023-02-08] MEDS ORDERED: LIDOCAINE 1% HCL (LOCAL ANESTH.) INJ 20ML MDV ONE (18:52)
[2023-02-08] MEDS ORDERED: HYDROmorphone HCL 2 MG/ML VL/or syr ONE (19:14)
[2023-02-08] MEDS ORDERED: HYDROmorphone HCL 2 MG/ML VL/or syr IV PRN (19:15)
[2023-02-08] MEDS ORDERED: METOCLOPRAMIDE HCL 5MG/ml INJ 2ml VIAL IV PRN (19:15)
[2023-02-08] MEDS: HYDROmorphone HCL 2 MG/ML VL/or syr IV PRN ×4 (19:16→19:47)
[2023-02-08] MEDS: OXYCODONE W/ ACETAMINOPHEN 5/325MG TABLET PO PRN (19:36)
[2023-02-08] MEDS: SODIUM CHLOR 0.9% PF (SALINE LOCK) 10ML VIAL/SYR IV SCH (20:52)
[2023-02-08] MEDS: ATORVASTATIN 20 MG TAB PO SCH ×2 (20:52→20:55)
[2023-02-08] MEDS: QUEtiapine FUMARATE 100 MG TAB PO SCH ×2 (20:52→20:55)
[2023-02-08] MEDS ORDERED: LINEZOLID 600MG/300ML 300 ML IV SCH (22:00)
[2023-02-09] VITALS (7 sets, daily range): BP systolic 125–140; BP diastolic 68–76; PULSE 78–88; RESP 17–21; TEMP 98.2–99.3; O2SAT 94–97
[2023-02-09] MEDS: VANCOMYCIN 750mg/250ml 250 ML IV SCH ×3 (00:58→23:59)
[2023-02-09] MEDS: SODIUM CHLOR 0.9% PF (SALINE LOCK) 10ML VIAL/SYR IV SCH ×2 (05:27→20:59)
[2023-02-09 06:03] LABS: Hematocrit 32.6 % (41.0-53.0); Hemoglobin 10.7 g/dL (13.5-17.5)
[2023-02-09 06:16] LABS: Anion Gap 8 (5-15); Carbon Dioxide 22 mmol/L (20-30); Chloride 112 mmol/L (98-107); Potassium 3.6 mmol/L (3.5-5.1); Sodium 142 mmol/L (136-145)
[2023-02-09 06:17] LABS: Calcium 8.6 mg/dL (8.5-10.1)
[2023-02-09 06:22] LABS: Blood Urea Nitrogen 10 mg/dL (9-23); Glucose 110 mg/dL (74-106)
[2023-02-09] MEDS: ZINC SULFATE 220mg CAP or TAB PO SCH (10:09)
[2023-02-09] MEDS: MULTIPLE VITAMIN TAB PO SCH (10:09)
[2023-02-09] MEDS: ASCORBIC ACID 500 MG TAB PO SCH ×2 (10:09→21:00)
[2023-02-09] MEDS: HYDROcodone-ACET 5/325MG TAB PO PRN (10:09)
[2023-02-09] MEDS: ENOXAPARIN SOD 40 MG/0.4 ML SYRINGE SC SCH (10:10)
[2023-02-09] MEDS ORDERED: LIDOCAINE 1% (LOCAL ANESTH.) PF 5ml SDV ID ONE (10:30)
[2023-02-09] MEDS: D5W/SOD CHL 0.45% 1,000 ML IV SCH (11:42)
[2023-02-09 13:09] LABS: COVID19 ANTIGEN SOFIA FIA NEGATIVE (NEGATIVE)
[2023-02-09] MEDS: SERTRALINE HCL 50 MG TAB PO SCH (20:50)
[2023-02-09] MEDS: QUEtiapine FUMARATE 100 MG TAB PO SCH (21:00)
[2023-02-09] MEDS: ATORVASTATIN 20 MG TAB PO SCH (21:00)
[2023-02-10] MEDS: D5W/SOD CHL 0.45% 1,000 ML IV SCH ×2 (02:11→13:35)
[2023-02-10 05:00] VITALS: BP 123/75; PULSE 83; RESP 18; TEMP 98.5; O2SAT 95
[2023-02-10 06:45] LABS: Hematocrit 33.8 % (41.0-53.0); Hemoglobin 11.1 g/dL (13.5-17.5)
[2023-02-10 08:00] VITALS: PULSE 82; RESP 18; O2SAT 98
[2023-02-10 09:00] VITALS: BP 126/71; PULSE 82; RESP 20; TEMP 97.5; O2SAT 98
[2023-02-10] MEDS ORDERED: HYDR-4902 PO (09:58)
[2023-02-10] MEDS: SERTRALINE HCL 50 MG TAB PO SCH (10:26)
[2023-02-10] MEDS: ASCORBIC ACID 500 MG TAB PO SCH (10:26)
[2023-02-10] MEDS: ZINC SULFATE 220mg CAP or TAB PO SCH (10:26)
[2023-02-10] MEDS: ENOXAPARIN SOD 40 MG/0.4 ML SYRINGE SC SCH (10:27)
[2023-02-10] MEDS: SODIUM CHLOR 0.9% PF (SALINE LOCK) 10ML VIAL/SYR IV SCH (10:27)
[2023-02-10 13:00] VITALS: BP 123/71; PULSE 75; RESP 18; TEMP 98.2; O2SAT 98
[2023-02-10] MEDS: VANCOMYCIN 750mg/250ml 250 ML IV SCH (13:13)
[2023-02-10] MEDS: MULTIPLE VITAMIN TAB PO SCH (13:13)
[2023-02-10 17:00] VITALS: BP 120/58; PULSE 51; RESP 15; TEMP 98.3; O2SAT 95
[2023-02-10 17:08] VITALS: BP 130/79; PULSE 76; RESP 18; TEMP 98.9; O2SAT 96
== END 2023-02-10 19:05 | disposition home health service (06) | DRG 493 ==
LOC: ER 09:25 → OVERFLOW 17:36 → EAST 21:58
PROVIDERS: ADMIT Nurse Practitioner Family; ATTEND Family Medicine
PROC: 0SPF04Z Removal of Internal Fixation Device from Right Ankle Joint, Open Approach (ICD-10-PCS; 2023-02-08)
PROC: 02HV33Z Insertion of Infusion Device into Superior Vena Cava, Percutaneous Approach (ICD-10-PCS; principal; 2023-02-09)
PROC: B548ZZA Ultrasonography of Superior Vena Cava, Guidance (ICD-10-PCS; 2023-02-09)
DX: T84.629A Infection and inflammatory reaction due to internal fixation device of unspecified bone of leg, initial encounter (principal); L03.115 Cellulitis of right lower limb; B95.62 Methicillin resistant Staphylococcus aureus infection as the cause of diseases classified elsewhere; F20.9 Schizophrenia, unspecified; E78.5 Hyperlipidemia, unspecified; Y83.8 Other surgical procedures as the cause of abnormal reaction of the patient, or of later complication, without mention of misadventure at the time of the procedure; F32.A Depression, unspecified; F15.90 Other stimulant use, unspecified, uncomplicated; Z20.822 Contact with and (suspected) exposure to COVID-19; J44.9 Chronic obstructive pulmonary disease, unspecified; Z91.199 Patient's noncompliance with other medical treatment and regimen due to unspecified reason; Z91.148 Patient's other noncompliance with medication regimen for other reason; Z71.41 Alcohol abuse counseling and surveillance of alcoholic; Y92.89 Other specified places as the place of occurrence of the external cause
CPT/HCPCS: 36415; 36569; 71045; 73600; 73700; 80048; 80053; 80202; 83605; 85014; 85018; 85025; 85610; 85652; 87070; 87075; 87077; 87081; 87186; 87205; 87426; 93005; 93926; 96374; 97110; 97116; 97163; 97530; G0378; J2001; J2250; J2405; J2704; J3490

== ENCOUNTER 2023-04-17 11:17 | Inpatient (IN) | payer MEDICARE, MEDICAID ==
[~2023-04-17] VITALS: Ht 182.9 cm; Wt 89.8 kg
[~2023-04-17 11:17] MED LIST changes: +HYDR-4902 PO; -QUET200T45 PO
[2023-04-17] MEDS ORDERED: HYDROcodone-ACET 5/325MG TAB PO PRN (12:00)
[2023-04-17] MEDS ORDERED: IBUPROFEN 800 MG TAB PO PRN (12:00)
[2023-04-17] MEDS ORDERED: ACETAMINOPHEN 325 MG TAB PO PRN (12:00)
[2023-04-17 12:02] LABS: Basophils # (auto) 0 10 ^3/uL (0-0.2); Basophils % (auto) 0.7 % (0.0-2.0); Eosinophils # (auto) 0.6 10 ^3/uL (0-0.8); Eosinophils % (auto) 9.1 % (0.0-7.0); Hemoglobin 11.8 g/dL (13.5-17.5); Lymphocytes # (auto) 1.5 10 ^3/uL (0.4-5.4); Lymphocytes % (auto) 22.6 % (10.0-50.0); Mean Corpuscular Hemoglobin 30.9 pg (28.0-32.0); Mean Corpuscular Hgb Conc. 32.8 g/dL (32.0-36.0); Mean Corpuscular Volume 94.2 fL (80.0-100.0); Monocytes # (auto) 0.6 10 ^3/uL (0-1.3); Monocytes % (auto) 9.8 % (0.0-12.0); Neutrophils # (auto) 3.8 10 ^3/uL (1.6-8.6); Neutrophils % (auto) 57.8 % (37.0-80.0); Nucleated Red Blood Cells % 0.1 %; Red Blood Cells 3.82 10^6/uL (4.5-5.90); Red Cell Distribution Width 15.1 % (11.8-14.3); White Blood Cell 6.5 10^3/uL (4.4-10.8)
[2023-04-17 12:09] LABS: Urine Bacteria NONE SEEN /hpf (None Seen); Urine Blood Negative /uL (Negative); Urine Clarity Clear (Clear); Urine Color Yellow (Yellow); Urine Protein, UAD TRACE (Negative); Urine Specific Gravity 1.016 (1.001-1.035); Urine Urobilinogen Normal (Negative); Urine WBC 1 /hpf (0 - 3)
[2023-04-17 12:16] LABS: Anion Gap 7 (5-15); Carbon Dioxide 20 mmol/L (20-30); Chloride 114 mmol/L (98-107); Potassium 3.9 mmol/L (3.5-5.1); Sodium 141 mmol/L (136-145)
[2023-04-17 12:17] LABS: Calcium 9.1 mg/dL (8.5-10.1)
[2023-04-17 12:22] LABS: BUN/Creatinine Ratio 9.2 (10.0-20.0); Blood Urea Nitrogen 11 mg/dL (9-23); Glucose 81 mg/dL (74-106)
[2023-04-17 12:24] LABS: INR 1.14 (0.9-1.15); Partial Thromboplastin Time 30.2 SEC (24.5-34.5); Prothrombin Time 11.9 sec (9.3-11.8)
[2023-04-17] MEDS: SODIUM CHLORIDE 0.9% 1,000 ML IV SCH (12:37)
[2023-04-17] MEDS: PANTOPRAZOLE 40 MG/10 ML VIAL INJ IV ONE (12:45)
[2023-04-17] MEDS ORDERED: VANCOMYCIN PER PHARMACY 0 MG IV SCH (18:30)
[2023-04-17] MEDS: VANCOMYCIN 1GM/200ML 200 ML IV ONE (18:45)
[2023-04-17 19:15] VITALS: PULSE 80; RESP 20; O2SAT 96
[2023-04-17] MEDS: ASCORBIC ACID 500 MG TAB PO SCH (22:14)
[2023-04-17] MEDS: ATORVASTATIN 20 MG TAB PO SCH (22:15)
[2023-04-17] MEDS: QUETIAPINE FUMERATE 400 MG PO SCH (22:23)
[2023-04-18] VITALS (10 sets, daily range): BP systolic 116–151; BP diastolic 67–87; PULSE 72–88; RESP 13–20; TEMP 36.6; O2SAT 94–98
[2023-04-18 05:43] LABS: Alanine Aminotransferase 29 U/L (7-40); Albumin 4.1 g/dL (3.2-4.8); Alkaline Phosphatase 70 U/L (46-116); Anion Gap 7 (5-15); Aspartate Aminotransferase 26 U/L (13-40); BUN/Creatinine Ratio 11.1 (10.0-20.0); Blood Urea Nitrogen 13 mg/dL (9-23); Carbon Dioxide 21 mmol/L (20-30); Chloride 113 mmol/L (98-107); Glucose 95 mg/dL (74-106); Potassium 3.8 mmol/L (3.5-5.1); Sodium 141 mmol/L (136-145)
[2023-04-18 05:44] LABS: Bilirubin, Total 0.3 mg/dL (0.2-1.0); Total Protein 6.4 g/dL (5.7-8.2)
[2023-04-18] MEDS: VANCOMYCIN 1GM/200ML 200 ML IV SCH (05:46)
[2023-04-18] MEDS ORDERED: PROPOFOL 10 MG/ML 20 ML IV ONE (06:54)
[2023-04-18] MEDS ORDERED: LIDOCAINE 1% INJ PF 5ML AMP ONE ×2 (06:54→07:16)
[2023-04-18] MEDS ORDERED: KETOROLAC TROMETH 30 MG/ML 1ML VIAL ONE (06:54)
[2023-04-18] MEDS ORDERED: ONDANSETRON HCL 4 MG/2 ML VIAL ONE (06:54)
[2023-04-18] MEDS ORDERED: GLYCOPYRROLATE 0.2 MG/ML 1ML VIAL ONE (06:54)
[2023-04-18] MEDS ORDERED: DexAMETHasone SOD PHOS 10MG/1ML VIAL INJ ONE (06:54)
[2023-04-18] MEDS ORDERED: fentaNYL CITRATE 100 MCG/2 ML VL ONE (06:55)
[2023-04-18] MEDS ORDERED: KETAMINE 50mg/ML 1ml syringe ONE (06:55)
[2023-04-18] MEDS: CELECOXIB 100 MG CAP PO ONE (07:00)
[2023-04-18] MEDS: GABAPENTIN 300 MG CAP PO ONE (07:00)
[2023-04-18] MEDS: ACETAMINOPHEN IV 100 ML IV ONE (07:03)
[2023-04-18] MEDS: CELECOXIB 100 MG CAP ONE (07:10)
[2023-04-18] MEDS: ACETAMINOPHEN IV 1000 MG/100ML (10MG/ML) IV ONE (07:10)
[2023-04-18] MEDS: GABAPENTIN 300 MG CAP ONE (07:10)
[2023-04-18] MEDS: DexAMETHasone SOD PHOS 4 MG/1ML SDV INJ ONE (07:14)
[2023-04-18] MEDS: EPINEPHrine HCL 1 MG/1 ML AMP ONE (07:14)
[2023-04-18] MEDS: BUPIVACAINE HCL 50 ML ONE (07:15)
[2023-04-18] MEDS: BUPIVACAINE 0.25% INJ 50ML VIAL ONE (07:15)
[2023-04-18] MEDS: VANCOMYCIN HCL 1000 MG VL ONE (08:14)
[2023-04-18] MEDS ORDERED: ePHEDrine SULFATE 50 MG/ML AMP IV PRN (09:00)
[2023-04-18] MEDS ORDERED: oxyCODONE HCL 5MG TAB PO PRN (09:00)
[2023-04-18] MEDS ORDERED: LABETALOL HCL 5 MG/ML 4ML SYRINGE IV PRN (09:00)
[2023-04-18] MEDS ORDERED: hydrALAZINE HCL 20 MG/ML VL IV PRN (09:00)
[2023-04-18] MEDS ORDERED: ONDANSETRON HCL 4 MG/2 ML VIAL IV PRN (09:00)
[2023-04-18] MEDS ORDERED: NALOXONE HCL 0.4 MG/ML VIAL IV PRN (09:00)
[2023-04-18] MEDS ORDERED: fentaNYL CITRATE 100 MCG/2 ML VL IV PRN (09:00)
[2023-04-18] MEDS ORDERED: HYDROmorphone HCL 2 MG/ML VL/or syr IV PRN (09:00)
[2023-04-18] MEDS ORDERED: FLUMAZENIL 0.1 MG/ML INJ 10ML MDV IV PRN (09:00)
[2023-04-18] MEDS ORDERED: PATIENTS OWN MEDICATION (Simvastatin 40 MG) PO SCH (10:00)
[2023-04-18] MEDS: ZINC SULFATE 220mg CAP or TAB PO SCH (10:14)
[2023-04-18] MEDS: MULTIPLE VITAMIN TAB PO SCH (10:14)
[2023-04-18] MEDS: PANTOPRAZOLE 40 MG/10 ML VIAL INJ IV SCH (10:15)
[2023-04-18] MEDS ORDERED: IPRATROPIUM BROM 0.5 MG/2.5ML INH SOL NEB PRN (11:15)
[2023-04-18] MEDS: CEFTRIAXONE SODIUM 2 GM in D5W 5% 100 ML IV SCH (11:38)
[2023-04-18 13:19] LABS: Basophils # (auto) 0.1 10 ^3/uL (0-0.2); Eosinophils # (auto) 0.7 10 ^3/uL (0-0.8); Eosinophils % (auto) 8.5 % (0.0-7.0); Hemoglobin 11.3 g/dL (13.5-17.5); Lymphocytes # (auto) 1.4 10 ^3/uL (0.4-5.4); Lymphocytes % (auto) 18.7 % (10.0-50.0); Mean Corpuscular Hemoglobin 31.2 pg (28.0-32.0); Mean Corpuscular Hgb Conc. 33.2 g/dL (32.0-36.0); Monocytes # (auto) 0.7 10 ^3/uL (0-1.3); Monocytes % (auto) 8.9 % (0.0-12.0); Neutrophils # (auto) 4.8 10 ^3/uL (1.6-8.6); Neutrophils % (auto) 62.9 % (37.0-80.0); Red Blood Cells 3.62 10^6/uL (4.5-5.90); Red Cell Distribution Width 15.3 % (11.8-14.3); White Blood Cell 7.7 10^3/uL (4.4-10.8)
[2023-04-18 13:39] LABS: LDL Cholesterol 99 mg/dL (< 100); Triglycerides 99 mg/dL (< 150)
[2023-04-18 13:40] LABS: HDL Cholesterol 43 mg/dL (40-59)
[2023-04-18 13:41] LABS: Cholesterol 150 mg/dL (< 200)
[2023-04-18] MEDS: PANTOPRAZOLE 40 MG TAB PO ONE (14:01)
[2023-04-18] MEDS: rifAMPin 300 MG CAP PO SCH (14:01)
[2023-04-18 14:29] LABS: Calcium 9.1 mg/dL (8.7-10.4); Chloride 113 mmol/L (98-107); Potassium 4.2 mmol/L (3.5-5.1); Sodium 140 mmol/L (136-145)
[2023-04-18 14:30] LABS: Anion Gap 8 (5-15); Carbon Dioxide 19 mmol/L (20-30)
[2023-04-18 14:35] LABS: BUN/Creatinine Ratio 15.8 (10.0-20.0); Blood Urea Nitrogen 19 mg/dL (9-23); Glucose 182 mg/dL (74-106)
[2023-04-18 14:48] LABS: Amphetamine Screen, Urine Neg (NEGATIVE); Barbiturate Scree,Urine Neg (NEGATIVE); Benzodiazephine Screen, Urine Neg (NEGATIVE)
[2023-04-18 14:49] LABS: Cannabinoid Screen, Urine Pos (NEGATIVE); Cocaine Screen, Urine Neg (NEGATIVE); Opiate Scree,Urine Neg (NEGATIVE); Phencyclidine Screen, Urine Neg (NEGATIVE)
[2023-04-18] MEDS: ERGOCALCIFEROL 50,000 UNIT(1.25MG) CAP PO SCH (17:52)
[2023-04-18] MEDS: QUEtiapine FUMARATE 100 MG TAB PO SCH (22:35)
[2023-04-19] VITALS (7 sets, daily range): BP systolic 133–154; BP diastolic 73–85; PULSE 81–93; RESP 17–19; TEMP 36.6; O2SAT 93–96
[2023-04-19 05:44] LABS: Basophils # (auto) 0 10 ^3/uL (0-0.2); Basophils % (auto) 0.1 % (0.0-2.0); Eosinophils # (auto) 0 10 ^3/uL (0-0.8); Eosinophils % (auto) 0.1 % (0.0-7.0); Hematocrit 32.3 % (41.0-53.0); Hemoglobin 10.6 g/dL (13.5-17.5); Lymphocytes # (auto) 1.1 10 ^3/uL (0.4-5.4); Lymphocytes % (auto) 9.4 % (10.0-50.0); Mean Corpuscular Hemoglobin 30.8 pg (28.0-32.0); Mean Corpuscular Hgb Conc. 32.7 g/dL (32.0-36.0); Mean Corpuscular Volume 94.1 fL (80.0-100.0); Monocytes % (auto) 8.5 % (0.0-12.0); Neutrophils # (auto) 9.2 10 ^3/uL (1.6-8.6); Neutrophils % (auto) 81.9 % (37.0-80.0); Red Blood Cells 3.43 10^6/uL (4.5-5.90); Red Cell Distribution Width 15.3 % (11.8-14.3); White Blood Cell 11.3 10^3/uL (4.4-10.8)
[2023-04-19 05:55] LABS: Alanine Aminotransferase 35 U/L (7-40); Alkaline Phosphatase 71 U/L (46-116); Anion Gap 8 (5-15); Aspartate Aminotransferase 25 U/L (13-40); BUN/Creatinine Ratio 19.3 (10.0-20.0); Blood Urea Nitrogen 21 mg/dL (9-23); Calcium 8.5 mg/dL (8.7-10.4); Carbon Dioxide 20 mmol/L (20-30); Chloride 113 mmol/L (98-107); Glucose 110 mg/dL (74-106); Sodium 141 mmol/L (136-145)
[2023-04-19 05:56] LABS: Bilirubin, Total 0.3 mg/dL (0.2-1.0); Total Protein 6.2 g/dL (5.7-8.2)
[2023-04-19] MEDS: CALCIUM GLUC 1,000mg/50ml-NS 50 ML IV ONE (08:02)
[2023-04-19] MEDS: CYANOCOBALAMIN 500 MCG TAB PO SCH (10:15)
[2023-04-19] MEDS: PANTOPRAZOLE 40 MG TAB PO SCH (10:15)
[2023-04-19] MEDS ORDERED: PANT40T PO (10:18)
[2023-04-19] MEDS ORDERED: ACET-1882 PO (10:18)
[2023-04-19] MEDS ORDERED: ERGO1CAP23 PO (10:18)
[2023-04-19] MEDS ORDERED: MULTTAB99 PO (10:18)
[2023-04-19] MEDS ORDERED: ASCO500T11 PO (10:18)
[2023-04-19] MEDS ORDERED: RIFA300C58 PO (10:18)
[2023-04-19] MEDS ORDERED: CYAN500T3 PO (10:18)
[2023-04-19] MEDS: LIDOCAINE 1% (LOCAL ANESTH.) PF 5ml SDV ID ONE (14:00)
[2023-04-19] MEDS ORDERED: SERTRALINE HCL 50 MG TAB PO SCH (22:00)
[2023-04-19] MEDS ORDERED: SODIUM CHLOR 0.9% PF (SALINE LOCK) 10ML VIAL/SYR IV SCH (22:00)
== END 2023-04-19 20:21 | disposition home health service (06) | DRG 493 ==
LOC: ER 11:17 → OVERFLOW 12:14 → CENTRAL 04-18 01:10
PROVIDERS: ADMIT Internal Medicine; ATTEND Internal Medicine
PROC: 0SPF04Z Removal of Internal Fixation Device from Right Ankle Joint, Open Approach (ICD-10-PCS; 2023-04-18)
PROC: 0SSF04Z Reposition Right Ankle Joint with Internal Fixation Device, Open Approach (ICD-10-PCS; principal; 2023-04-18 07:29)
PROC: 02HV33Z Insertion of Infusion Device into Superior Vena Cava, Percutaneous Approach (ICD-10-PCS; 2023-04-19)
PROC: B54MZZA Ultrasonography of Right Upper Extremity Veins, Guidance (ICD-10-PCS; 2023-04-19)
DX: T84.59XA Infection and inflammatory reaction due to other internal joint prosthesis, initial encounter (principal); L03.115 Cellulitis of right lower limb; T81.31XA Disruption of external operation (surgical) wound, not elsewhere classified, initial encounter; M00.071 Staphylococcal arthritis, right ankle and foot; Z59.00 Homelessness unspecified; F20.9 Schizophrenia, unspecified; F12.10 Cannabis abuse, uncomplicated; J45.909 Unspecified asthma, uncomplicated; E55.9 Vitamin D deficiency, unspecified; J44.9 Chronic obstructive pulmonary disease, unspecified; Y79.2 Prosthetic and other implants, materials and accessory orthopedic devices associated with adverse incidents; B95.62 Methicillin resistant Staphylococcus aureus infection as the cause of diseases classified elsewhere; Y83.1 Surgical operation with implant of artificial internal device as the cause of abnormal reaction of the patient, or of later complication, without mention of misadventure at the time of the procedure; Y92.89 Other specified places as the place of occurrence of the external cause; Z91.148 Patient's other noncompliance with medication regimen for other reason
CPT/HCPCS: 36415; 36569; 71045; 73600; 76000; 80048; 80053; 80061; 80202; 80307; 81001; 82306; 82607; 84443; 85025; 85610; 85730; 87040; 87070; 87075; 87081; 87086; 87205; 96361; 96365; 96375; 97163; C9113; G0378; J0131; J0171; J0696; J1100; J1885; J2405; J2704; J3490; J7060

== ENCOUNTER 2024-11-13 21:07 | Inpatient (IN) | payer MEDICARE, MEDICAID ==
[~2024-11-13] VITALS: Ht 182.9 cm; Wt 85.0 kg
[~2024-11-13 21:07] MED LIST changes: +ACET-1882 PO; +ASCO500T11 PO; +CYAN500T3 PO; +ERGO1CAP23 PO; +MULTTAB99 PO; +PANT40T PO; +RIFA300C58 PO
--- NOTE | 2024-11-13 21:25 | ED.PDOC ---
History of Present Illness HPI Comments 64-year-old male who came to ER via EMS for generalized weakness. Patient states he has a severe case of arthritis. States for the past month, he has been having pain over his upper and lower extremities, he has been unable to use his upper and lower extremities, usually requiring assistance with a simple th ings. Difficulty ambulating with recurrent falls Chief Complaint: Weakness Time Seen by MD: 21:24 Primary Care Provider: RACHEL Sue Notes: Database Tester Notes Allergies: Coded Allergies: NO KNOWN ALLERGIES (Unverified , 11/17/22) Home Meds Active Scripts Rifampin (Rifampin) 300 Mg Cap, 300 MG PO BIDPC for 45 Days, #90 CAP Prov:STEPHANIE HERNANDEZ [facility] [place] 04/19/23 Pantoprazole Sodium Sesquihydr (Pantoprazole Sodium) 40 Mg Tab, 40 MG PO DAILY for 30 Days, #30 TAB Prov:STEPHANIE HERNANDEZ [facility] [place] 04/19/23 Multiple Vitamin (Mvi Tab) 1 Tab Tb, 1 TAB PO DAILY for 30 Days, #30 TAB Prov:STEPHANIE HERNANDEZ [facility] [place] 04/19/23 Ergocalciferol (VITAMIN D 42314 UNIT) 50,000 [place], [address] UNIT PO Q7D for 10 Days, #10 CAP Prov:STEPHANIE HERNANDEZ [facility] [place] 04/19/23 Cyanocobalamin (Gnp Vitamin B12) 500 Mcg Tab, 1000 MCG PO DAILY for 30 Days, #60 TAB Prov:STEPHANIE HERNANDEZ [facility] [place] 04/19/23 Ascorbic Acid (VITAMIN C TABLET) 500 Mg Tb, 500 MG PO BID for 30 Days, #60 TAB Prov:STEPHANIE HERNANDEZ [facility] [place] 04/19/23 Acetaminophen (Acetaminophen) 325 Mg Tab, 650 MG PO Q6HP PRN for 30 Days, #240 TAB Prov:STEPHANIE HERNANDEZ [facility] [place] 04/19/23 Hydrocodone-Acetaminophen (Hydrocodone Bitartrate/AC 5-325 mg) 1 Tab Tab, 1 TAB PO QID PRN, #60 TAB Prov:TAWANA SAMANO MD 02/10/23 Reported Medications Quetiapine Fumerate (QUETIAPINE FUMARATE) 400 Mg Tab, 2 TAB PO HS 01/02/23 Ibuprofen Micronized (Ibuprofen) 800 Mg Tab, 1 TAB PO Q8HPRN PRN for pain 01/02/23 Albuterol Sulfate (Ventolin) 2.5 Mg/3 Ml Nb, 2.5 MG INH Q6HP, INH 11/18/22 Simvastatin (Simvastatin) 40 Mg Tab, 40 MG PO DAILY for 30 Days 11/18/22 Sertraline Hcl (Zoloft) 100 Mg Tab, 200 MG PO DAILY, TAB 11/18/22 Information Source: Patient, Emergency Med Personnel Mode of Arrival: EMS Severity: Moderate Timing: Weeks Duration: Intermittent Past Medical History PAST MEDICAL HISTORY: Arthritis, Asthma, COPD, Schizophrenia Surgical History: Denies all surgeries Family History Family History: Reviewed,noncontributory to illness Social History Smoker: Non-Smoker Alcohol: Denies ETOH Use Drugs: Marijuana Lives In: Home Constitutional: reports: weakness, others (Muscle and joint pains); denies: chills, diaphoresis, fatigue, fever, malaise, sweats EENTM: denies: blurred vision, double vision, ear bleeding, ear discharge, ear drainage, ear pain, ear ringing, eye pain, eye redness, hearing loss, mouth pain, mouth swelling, nasal discharge, nose bleeding, nose congestion, nose pain, photophobia, tearing, throat pain, throat swelling, voice changes, others Respiratory: denies: cough, hemoptysis, orthopnea, SOB at rest, shortness of breath, SOB with excertion, stridor, wheezing, others Cardiovascular: denies: chest pain, dizzy spells, diaphoresis, Dyspnea on exertion, edema, irregular heart beat, left arm pain, lightheadedness, palpitations, PND, syncope, others Gastrointestinal: denies: abdomen distended, abdominal pain, blood streaked bowels, constipated, diarrhea, dysphagia, difficulty swallowing, hematemesis, me thuan, nausea, poor appetite, poor fluid intake, rectal bleeding, rectal pain, vomiting, others Genitourinary: denies: burning, dysuria, flank pain, frequency, hematuria, incontinence, penile discharge, penile sore, pain, testicle pain, testicle swelling, urgency, others Neurological: denies: dizziness, fainting, headache, left sided numbness, left sided weakness, numbness, paresthesia, pre-existing deficit, right sided numbness, right sided weakness, seizure, speech problems, tingling, tremors, weakness, others Musculoskeletal: denies: back pain, gout, joint pain, joint swelling, muscle pain, muscle stiffness, neck pain, others Integumetry: denies: bruises, change in color, change in hair/nails, dryness, laceration, lesions, lumps, rash, wounds, others Allergic/Immunocompromised: denies: Difficulty Healing, Frequent Infections, Hives, Itching, others Hematologic/Lymphatic: denies: anemia, blood clots, easy bleeding, easy bruising, swollen glands, others Endocrine: denies: excessive hunger, excessive sweating, excessive thirst, excessive urination, flushing, intolerance to cold, intolerance to heat, unexplained weight gain, unexplained weight loss, others Psychiatric: denies: anxiety, bipolar disorder, depression, hopeless, panic disorder, schizophrenia, sleepless, suicidal, others Physical Exam General Appearance: No Apparent Distress, Normal HEENT: Normal ENT Inspection, Pharynx Normal, TMs Normal Neck: Full Range of Motion, Non-Tender, Normal, Normal Inspection Respiratory: Chest Non-Tender, Lungs Clear, No Accessory Muscle Use, No Respiratory Distress, Normal Breath Sounds Cardiovascular: No Edema, No JVD, No Murmur, No Gallop, Normal Peripheral Pulses, Regular Rate/Rhythm Breast Exam: Deferred Gastrointestinal: No Organomegaly, Non Tender, No Pulsatile Mass, Normal Bowel Sounds, Soft Genitalia: Deferred Pelvic: Deferred Rectal: Deferred Extremities: No calf tenderness, Normal capillary refill, Normal inspection, Normal range of motion, Non-tender, No pedal edema Musculoskeletal : Apperance: Normal Neurologic: Alert, conveyor operator II-XII nml as Tested, No Motor Deficits, Normal Affect, Normal Mood, No Sensory Deficits Cerebellar Function: Normal Reflexes: Normal Skin: Dry, Normal Color, Warm Lymphatic: No Adenopathy Was a procedure done? Was a procedure done?: No Differential Dx Considerations may include: Anemia, electrolyte imbalance, dehydration, arthritis X-Ray, Labs, Meds, VS Vital Signs Date Time Temp Pulse Resp B/P (MAP) Pulse Ox O2 Delivery O2 Flow Rate FiO2 11/13/24 21:07 97.1 82 16 136/78 94 97.1 Lab Test 11/13/24 21:43 11/13/24 21:17 Range/Units White Blood Count 6.3 4.4-10.8 10^3/uL Red Blood Count 3.80 L 4.5-5.90 10^6/uL Hemoglobin 12.7 L 13.5-17.5 g/dL Hematocrit 36.7 L 41.0-53.0 % Mean Corpuscular Volume 96.5 80.0-100.0 fL Mean Corpuscular Hemoglobin 33.5 H 28.0-32.0 pg Mean Corpuscular Hemoglobin Concent 34.7 32.0-36.0 g/dL Red Cell Distribution Width 12.9 11.8-14.3 % Platelet Count 208 140-450 10^3/uL Mean Platelet Volume 7.6 6.9-10.8 fL Neutrophils (%) (Auto) 61.9 37.0-80.0 % Lymphocytes (%) (Auto) 24.0 10.0-50.0 % Monocytes (%) (Auto) 7.8 0.0-12.0 % Eosinophils (%) (Auto) 6.0 0.0-7.0 % Basophils (%) (Auto) 0.3 0.0-2.0 % Neutrophils # (Auto) 3.9 1.6-8.6 10 ^3/uL Lymphocytes # (Auto) 1.5 0.4-5.4 10 ^3/uL Monocytes # (Auto) 0.5 0-1.3 10 ^3/uL Eosinophils # (Auto) 0.4 0-0.8 10 ^3/uL Basophils # (Auto) 0 0-0.2 10 ^3/uL Nucleated Red Blood Cells 0.0 % Sodium Level 146 H 136-145 mmol/L Potassium Level 3.4 L 3.5-5.1 mmol/L Chloride Level 116 H 98-107 mmol/L Carbon Dioxide Level 20 20-31 mmol/L Anion Gap 10 5-15 Blood Urea Nitrogen 12 9-23 mg/dL Creatinine 1.03 0.700-1.30 mg/dL Glomerular Filtration Rate Calc 82 >90 mL/min BUN/Creatinine Ratio 11.7 10.0-20.0 Serum Glucose 87 74-106 mg/dL Calcium Level 8.9 8.7-10.4 mg/dL Magnesium Level 2.1 1.6-2.6 mg/dL Total Bilirubin < 0.2 L 0.2-1.0 mg/dL Aspartate Amino Transferase (AST) 19 13-40 U/L Alanine Aminotransferase (ALT) 17 7-40 U/L Alkaline Phosphatase 57 46-116 U/L Total Protein 6.7 5.7-8.2 g/dL Albumin 4.2 3.2-4.8 g/dL Urine Color Colorless Yellow Urine Clarity Clear Clear Urine pH 6.5 5.0-9.0 Urine Specific [place] 1.005 1.001-1.035 Urine Protein Negative Negative Urine Ketones Negative Negative Urine Blood Negative Negative /uL Urine Nitrite Negative Negative Urine Bilirubin Negative Negative Urine Urobilinogen Normal Negative mg/dL Urine Leukocyte Esterase Negative Negative /uL Urine RBC <1 0 - 3 /hpf Urine Microscopic WBC < 1 0-3 /HPF Urine Squamous Epithelial Cells None seen <5 /hpf Urine Bacteria None seen None Seen /hpf Urine Glucose Normal Normal mg/dL Time of 1ST Reevaluation: 21:19 Reevaluation 1ST: Unchanged Patient Education/Counseling: Diagnosis, Treatment Family Education/Counseling: No Family Present SEPSIS Sepsis Screen Physician Orders Heplock Iv (11/13/24 21:17) Electrocardigram (11/13/24 21:17) Vital Signs Date Time Temp Pulse Resp B/P (MAP) Pulse Ox O2 Delivery O2 Flow Rate FiO2 11/13/24 21:07 97.1 82 16 136/78 94 97.1 Laboratory Tests Test 11/13/24 21:43 White Blood Count 6.3 10^3/uL (4.4-10.8) Departure 1 Departure Time of Disposition: 22:51 Impression: Primary Impression: Generalized weakness Disposition: 09 ADMITTED INPATIENT Condition: Guarded Comments 64-year-old male with a history of sciatica on arthritis now complaining of generalized weakness. Patient states he is having a hard time forming ADLs at home. There are no focal deficits. Patient will need admission for supportive care and further workup. Critical Care Note Critical Care Time?: No Stability Stability form required: No Heart Score Heart Score: Heart Score Response (Comments) Value History N/A 0 EKG N/A 0 Age N/A 0 Risk Factors N/A 0 Troponin N/A 0 Total 0 I personally scribed for SAMUEL DEL ROSARIO MD ([email or web address]) on 11/13/24 at 21:25. Electronically submitted by Marty Romo ([email or web address]). SAMUEL DEL ROSARIO MD Nov 13, 2024 21:25
[2024-11-13] MEDS: SODIUM CHLORIDE 0.9% 500 ML IVB ONE (21:30)
[2024-11-13 21:53] LABS: Hematocrit 36.7 % (41.0-53.0); Hemoglobin 12.7 g/dL (13.5-17.5); Mean Corpuscular Hemoglobin 33.5 pg (28.0-32.0); Mean Corpuscular Volume 96.5 fL (80.0-100.0); Nucleated Red Blood Cells % 0.0 %
[2024-11-13 22:01] LABS: Urine Protein, UAD Negative (Negative)
[2024-11-13 22:09] LABS: Alanine Aminotransferase 17 U/L (7-40); Albumin 4.2 g/dL (3.2-4.8); Alkaline Phosphatase 57 U/L (46-116); Anion Gap 10 (5-15); BUN/Creatinine Ratio 11.7 (10.0-20.0); Blood Urea Nitrogen 12 mg/dL (9-23); Calcium 8.9 mg/dL (8.7-10.4); Glucose 87 mg/dL (74-106); Magnesium 2.1 mg/dL (1.6-2.6); Total Protein 6.7 g/dL (5.7-8.2)
[2024-11-13 22:22] LABS: Bilirubin, Total < 0.2 mg/dL (0.2-1.0); Carbon Dioxide 20 mmol/L (20-31); Chloride 116 mmol/L (98-107); Potassium 3.4 mmol/L (3.5-5.1); Sodium 146 mmol/L (136-145)
[2024-11-14] VITALS (8 sets, daily range): BP systolic 130–145; BP diastolic 79–84; PULSE 65–84; RESP 13–18; TEMP 97.6–97.7; O2SAT 92–96
[2024-11-14] MEDS ORDERED: ACETAMINOPHEN 325 MG TAB PO PRN (04:30)
[2024-11-14] MEDS ORDERED: ONDANSETRON HCL 4 MG/2 ML VIAL IV PRN (04:30)
[2024-11-14] MEDS ORDERED: DOCUSATE SOD 100 MG CAP PO PRN (04:30)
--- NOTE | 2024-11-14 05:11 | DVHHP2 ---
History of Present Illness Reason for Visit: Generalized weakness History of Present Illness The patient is a 64-year-old male with past medical history of arthritis, asthma, COPD, schizophrenia, depression, and hyperlipidemia who presented to [place] [facility] ED with complaint of generalized weakness. Patient reports for the past month he has been having pain over his upper and lower extremities, usually require assistance with simple tasks, difficulty ambulating with frequent falls, getting worse today that prompted this visit. Patient was seen and evaluated in the ED, laboratory data shows WBC 6.3, hemoglobin 12.7, hematocrit 36.7, platelets 208, sodium 146, potassium 3.4, BUN 12, creatinine 1 .03, glucose 87, calcium 9.1, blood pressure 145/84, heart rate 74, temperature 98.1 F, O2 saturation 96% on room air. Please see medication orders section in the computer. On my assessment, patient denied chest pain, no headache, dizziness, no diaphoresis, no shortness of breaths, no nausea, no vomiting, no fever, no chills. Patient was admitted for further evaluation and medical management. Past Medical History Arthritis, Asthma, COPD, Schizophrenia, Depression, HLD. Past Surgical History Denies all surgeries Family History Reviewed, noncontributory to the management of this case. Past Social History The patient lives at home, denies smoking, alcohol or illicit drugs abuse. Review of Systems Constitutional: Yes: Weakness; No: Fever, Chills, Sweats, Malaise, Other Eyes: No: Pain, Vision change, Conjunctivae inflammation, Eyelid inflammation, Other, Redness ENT: No: Ear pain, Ear discharge, Nose pain, Nose discharge, Nose congestion, Mouth pain, Mouth swelling, Throat pain, Throat swelling, Other Respiratory: No: Cough, Dry, Shortness of breath, SOB with excertion, Wheezing, Hemoptysis, Pleuritic Pain, Sputum, Wheezing, Other Cardiovascular: No: Chest Pain, Palpitations, Orthopnea, Paroxysmal Noc. Dyspnea, Edema, Lt Headedness, Other Gastrointestinal: No: Nausea, Vomiting, Abdominal Pain, Diarrhea, Constipation, Melena, Hematochezia, Other Genitourinary: No Dysuria, No Frequency, No Incontinence, No Hematuria, No Retention, No Other Musculoskeletal: No: other, neck pain, shoulder pain, arm pain, back pain, hand pain, leg pain, foot pain Skin: No: Rash, Lesions, Jaundice, Bruising, Other Neurological: No: Weakness, Numbness, Incoordination, Change in speech, Confusion, Seizures, Other Allergies: Coded Allergies: NO KNOWN ALLERGIES (Unverified , 11/17/22) Medications Current Medications Medications Dose Ordered Sig/Maisha Route Start Time Stop Time Status Last Admin Dose Admin Albuterol 2.5 mg Q4HPRN PRN NEB 11/14/24 04:30 Ipratropium [place] 0.5 mg Q4HPRN PRN NEB 11/14/24 04:30 Sertraline HCl 100 mg DAILY PO 11/14/24 10:00 Quetiapine Fumarate 200 mg HS PO 11/14/24 22:00 Atorvastatin Calcium 40 mg HS PO 11/14/24 22:00 Famotidine 20 mg Q12HR IV 11/14/24 10:00 Sodium Chloride 10 ml Q8HR IV 11/14/24 06:00 Acetaminophen/ Hydrocodone Bitart 1 tab Q4HP PRN PO 11/14/24 04:30 Ondansetron HCl 4 mg Q4HP PRN IV 11/14/24 04:30 Docusate Sodium 100 mg BIDPRN PRN PO 11/14/24 04:30 Ascorbic Acid 500 mg BID PO 11/14/24 10:00 Multivitamins 1 tab DAILY PO 11/14/24 10:00 Acetaminophen 650 mg Q6HP PRN PO 11/14/24 04:30 Exam Vital Signs Vital Signs Date Time Temp Pulse Resp B/P (MAP) Pulse Ox O2 Delivery O2 Flow Rate FiO2 11/14/24 04:30 76 18 145/84 96 11/14/24 02:40 98.1 98.1 11/14/24 02:40 Room Air General Appearance: Alert, Oriented X3, Cooperative, No acute distress HEENT: Atraumatic, PERRLA, EOMI, Mucous membr. moist/pink Respiratory: Normal air movement Cardiovascular: Regular rate, Normal S1, Normal S2, No murmurs Abdominal: Normal bowel sounds, Soft, No tenderness, No hepatospenomegaly, No masses Extremities: No clubbing, No cyanosis, No edema, Normal pulses, No tenderness/swelling Skin: No rashes, No breakdown, No significant lesion Neuro: Normal speech, Normal tone, Sensation intact, Cranial nerves 3-12 NL, Reflexes 2+, Other (Generalized weakness) Psych/Mental Status: Mental status NL, Mood NL Labs/Xrays Labs Test 11/13/24 21:43 11/13/24 21:17 Range/Units White Blood Count 6.3 4.4-10.8 10^3/uL Red Blood Count 3.80 L 4.5-5.90 10^6/uL Hemoglobin 12.7 L 13.5-17.5 g/dL Hematocrit 36.7 L 41.0-53.0 % Mean Corpuscular Volume 96.5 80.0-100.0 fL Mean Corpuscular Hemoglobin 33.5 H 28.0-32.0 pg Mean Corpuscular Hemoglobin Concent 34.7 32.0-36.0 g/dL Red Cell Distribution Width 12.9 11.8-14.3 % Platelet Count 208 140-450 10^3/uL Mean Platelet Volume 7.6 6.9-10.8 fL Neutrophils (%) (Auto) 61.9 37.0-80.0 % Lymphocytes (%) (Auto) 24.0 10.0-50.0 % Monocytes (%) (Auto) 7.8 0.0-12.0 % Eosinophils (%) (Auto) 6.0 0.0-7.0 % Basophils (%) (Auto) 0.3 0.0-2.0 % Neutrophils # (Auto) 3.9 1.6-8.6 10 ^3/uL Lymphocytes # (Auto) 1.5 0.4-5.4 10 ^3/uL Monocytes # (Auto) 0.5 0-1.3 10 ^3/uL Eosinophils # (Auto) 0.4 0-0.8 10 ^3/uL Basophils # (Auto) 0 0-0.2 10 ^3/uL Nucleated Red Blood Cells 0.0 % Sodium Level 146 H 136-145 mmol/L Potassium Level 3.4 L 3.5-5.1 mmol/L Chloride Level 116 H 98-107 mmol/L Carbon Dioxide Level 20 20-31 mmol/L Anion Gap 10 5-15 Blood Urea Nitrogen 12 9-23 mg/dL Creatinine 1.03 0.700-1.30 mg/dL Glomerular Filtration Rate Calc 82 >90 mL/min BUN/Creatinine Ratio 11.7 10.0-20.0 Serum Glucose 87 74-106 mg/dL Calcium Level 8.9 8.7-10.4 mg/dL Magnesium Level 2.1 1.6-2.6 mg/dL Total Bilirubin < 0.2 L 0.2-1.0 mg/dL Aspartate Amino Transferase (AST) 19 13-40 U/L Alanine Aminotransferase (ALT) 17 7-40 U/L Alkaline Phosphatase 57 46-116 U/L Total Protein 6.7 5.7-8.2 g/dL Albumin 4.2 3.2-4.8 g/dL Urine Color Colorless Yellow Urine Clarity Clear Clear Urine pH 6.5 5.0-9.0 Urine Specific [place] 1.005 1.001-1.035 Urine Protein Negative Negative Urine Ketones Negative Negative Urine Blood Negative Negative /uL Urine Nitrite Negative Negative Urine Bilirubin Negative Negative Urine Urobilinogen Normal Negative mg/dL Urine Leukocyte Esterase Negative Negative /uL Urine RBC <1 0 - 3 /hpf Urine Microscopic WBC < 1 0-3 /HPF Urine Squamous Epithelial Cells None seen <5 /hpf Urine Bacteria None seen None Seen /hpf Urine Glucose Normal Normal mg/dL SEPSIS Sepsis Screen Date sepsis recognized/suspect: Nov 14, 2024 Time Sepsis recognized/suspect: 243 Recent Procedure: No On Antibiotic Therapy: No Respiratory Rate >20: No Heart Rate >90: No Temp<36 C (96.8 F) or >38.3 C: No SBP <90 or MAP <65 mmHG: No New Acute Mental Status Change: No Is the patient on CPAP, BIPAP,: No Physician Orders Heplock Iv (11/13/24 21:17) Electrocardigram (11/13/24 21:17) Complete Blood Count (11/14/24 04:22) Comprehensive Metabolic Panel (11/14/24 04:22) Albuterol Medneb (Ventolin Medneb) (11/14/24 04:30) Ipratropium Medneb (Atrovent Medneb) (11/14/24 04:30) Sertraline Hcl (Zoloft) (11/14/24 10:00) Quetiapine Fumarate Tablet (Seroquel Tab (11/14/24 22:00) Atorvastatin (Lipitor) (11/14/24 22:00) Famotidine Injection (Pepcid Injection) (11/14/24 10:00) Allergies (11/14/24 04:22) Code Status (11/14/24 04:22) Sodium Chloride Lock (Saline Lock Ns) (11/14/24 06:00) Oxygen Per Hour (11/14/24 04:22) Hydrocodone-Acet 5/325mg Tab (Means 32 (11/14/24 04:30) Ondansetron Hcl (Zofran) (11/14/24 04:30) Docusate Sodium Capsule (Colace Capsule) (11/14/24 04:30) Ascorbic Acid Tablet (Vitamin C Tablet) (11/14/24 10:00) Multiple Vitamin Tablet (Mvi Tab) (11/14/24 10:00) Complete Blood Count (11/15/24 04:00) Comprehensive Metabolic Panel (11/15/24 04:00) Cardiac Diet-2gna,Lofat,Lochol (11/14/24 Breakfast) Condition: Serious (11/14/24 04:22) Acetaminophen Tablet (Tylenol Tablet) (11/14/24 04:30) Bedrest With Bathroom Privileg (11/14/24 04:22) Sequential Compression Device (11/14/24 ) Admit (11/14/24 05:08) Nitroglycerin Sublingual (Ntrostat Subli (11/14/24 05:15) Morphine Sulfate Injection (11/14/24 05:15) Stat Ekg For Chest Pain (11/14/24 05:08) Notify Of Changes From Base (11/14/24 05:08) Oval Or Circular Glass Cutter For 24 Hours (11/14/24 05:08) Emergency Dysrhythmia Protocol (11/14/24 05:08) Rhythm Strips Once Every Shift (11/14/24 05:08) Oxygen By Nasal Cannula (11/14/24 05:08) Vital Signs Date Time Temp Pulse Resp B/P (MAP) Pulse Ox O2 Delivery O2 Flow Rate FiO2 11/14/24 04:30 76 18 145/84 96 11/14/24 02:40 98.1 73 20 145/84 (104) 94 98.1 11/14/24 02:40 70 20 96 Room Air Laboratory Tests Test 11/13/24 21:43 White Blood Count 6.3 10^3/uL (4.4-10.8) Medications Medications Dose Ordered Sig/Maisha Route Start Time Stop Time Status Last Admin Dose Admin Sodium Chloride 500 ml @ 500 mls/hr Q1H ONCE IVB 11/13/24 21:30 11/13/24 22:29 DC 11/13/24 21:30 500 MLS/HR Assessment/Plan Assessment/Plan Hypokalemia Generalized weakness Plan 1. Admit to telemetry units 2. Breathing treatment 3. Pain control management 4. Management of fluids and electrolytes 5. Consultation for hospitalist 6. Diagnostic tests chest x-ray 7. DVT prophylaxis-on SCDs 8. Repeat labs CBC, CMP in a.m. 9. Continue with current medical management 10. Treatment plan discussed with patient and RN. Patient verbalized understanding. Plan discussed with: Patient, Other (RN) My Orders Orders - CAMPBELL COWAN DNP Procedure Category Date Status Time Complete Blood Count LAB 11/14/24 Logged 04:22 Comprehensive LAB 11/14/24 Logged Metabolic Panel 04:22 Albuterol Medneb PHA 11/14/24 In Process (Ventolin Medneb) 04:30 Ipratropium Medneb PHA 11/14/24 In Process (Atrovent Medneb) 04:30 Sertraline Hcl PHA 11/14/24 In Process (Zoloft) 10:00 Quetiapine Fumarate PHA 11/14/24 In Process Tablet (Seroquel Tab 22:00 Atorvastatin (Lipitor) PHA 11/14/24 In Process 22:00 Famotidine Injection PHA 11/14/24 In Process (Pepcid Injection) 10:00 Allergies KATIE 11/14/24 In Process 04:22 Code Status CODE 11/14/24 Transmitted 04:22 Sodium Chloride Lock PHA 11/14/24 In Process (Saline Lock Ns) 06:00 Oxygen Per Hour RT 11/14/24 Transmitted 04:22 Hydrocodone-Acet PHA 11/14/24 In Process 5/325mg Tab (Means 04:30 Ondansetron Hcl PHA 11/14/24 In Process (Zofran) 04:30 Docusate Sodium PHA 11/14/24 In Process Capsule (Colace 04:30 Ascorbic Acid Tablet PHA 11/14/24 In Process (Vitamin C Tablet) 10:00 Multiple Vitamin PHA 11/14/24 In Process Tablet (Mvi Tab) 10:00 Complete Blood Count LAB 11/15/24 Verified 04:00 Comprehensive LAB 11/15/24 Verified Metabolic Panel 04:00 Cardiac DIET 11/14/24 Transmitted Diet-2gna,Lofat,Lochol Breakfast Condition: Serious [facility] 11/14/24 In Process 04:22 Acetaminophen Tablet [facility] 11/14/24 In Process (Tylenol Tablet) 04:30 Bedrest With Bathroom [facility] 11/14/24 In Process Privileg 04:22 Sequential [facility] 11/14/24 In Process Compression Device Admit ADMIT 11/14/24 Transmitted 05:08 Nitroglycerin [facility] 11/14/24 Transmitted Sublingual (Ntrostat 05:15 Morphine Sulfate [facility] 11/14/24 Transmitted Injection 05:15 Stat Ekg For Chest [facility] 11/14/24 Transmitted Pain 05:08 Notify Md Of Changes [facility] 11/14/24 Transmitted From Base 05:08 Oval Or Circular Glass Cutter For [facility] 11/14/24 Transmitted 24 Hours 05:08 Emergency Dysrhythmia [facility] 11/14/24 Transmitted Protocol 05:08 Rhythm Strips Once [facility] 11/14/24 Transmitted Every Shift 05:08 Oxygen By Nasal 11/14/24 Transmitted Cannula 05:08 Problem List: (1) Hypokalemia (2) Generalized weakness Date of Service: Nov 14, 2024 Billing Provider: CAMPBELL COWAN DNP Common Visit Codes: [id number] INP/OBS CARE (HIGH) CAMPBELL COWAN DNP Nov 14, 2024 05:11
[2024-11-14] MEDS ORDERED: MORPHINE SULFATE INJ 2 MG/ml SYRG IV PRN (05:15)
[2024-11-14] MEDS ORDERED: NITROGLYCERIN 0.4 MG SL TAB SL PRN (05:15)
[2024-11-14 05:48] LABS: Hematocrit 37.4 % (41.0-53.0); Hemoglobin 13.0 g/dL (13.5-17.5); Mean Corpuscular Hemoglobin 33.5 pg (28.0-32.0); Mean Corpuscular Volume 95.9 fL (80.0-100.0); Nucleated Red Blood Cells % 0.0 %
[2024-11-14 05:55] LABS: Alanine Aminotransferase 18 U/L (7-40); Albumin 4.3 g/dL (3.2-4.8); Alkaline Phosphatase 60 U/L (46-116); Anion Gap 9 (5-15); BUN/Creatinine Ratio 14.4 (10.0-20.0); Blood Urea Nitrogen 13 mg/dL (9-23); Calcium 9.1 mg/dL (8.7-10.4); Carbon Dioxide 21 mmol/L (20-31); Glucose 84 mg/dL (74-106); Potassium 3.6 mmol/L (3.5-5.1); Total Protein 6.9 g/dL (5.7-8.2)
[2024-11-14] MEDS: SODIUM CHLOR 0.9% PF (SALINE LOCK) 10ML VIAL/SYR IV SCH (06:00)
[2024-11-14] MEDS: POTASSIUM CHL 20 Meq TABLET PO ONE (06:00)
[2024-11-14 06:09] LABS: Bilirubin, Total 0.2 mg/dL (0.2-1.0); Chloride 116 mmol/L (98-107); Sodium 146 mmol/L (136-145)
--- NOTE | 2024-11-14 08:00 | DVH ---
XY CHEST PORTABLE, HISTORY: Shortness of breaths COMPARISON: XY CHEST PORTABLE on DOS: 04/19/23, XY CHEST PORTABLE on DOS: 02/08/23, XY CHEST XRAY 1 VIE W on DOS: 01/02/23 XY CHEST PORTABLE on DOS: 04/19/23, XY CHEST PORTABLE on DOS: 02/08/23, XY CHEST XRAY 1 VIEW on DOS: TECHNICAL DATA: 1 view of the chest was obtained. FINDINGS: Lines and tubes: None Cardiomediastinal silhouette: normal Pulmonary vasculature: normal Lung expansion: normal Lung airspace: normal Lung interstitium: normal Pleura: normal Pneumothorax: no Bones: Unremarkable Other: no IMPRESSION: No acute intrathoracic abnormality.
[2024-11-14] MEDS: FAMOTIDINE (10MG/ML) 2ML VL IV SCH (10:00)
[2024-11-14] MEDS: ASCORBIC ACID 500 MG TAB PO SCH (10:00)
[2024-11-14] MEDS: SERTRALINE HCL 50 MG TAB PO SCH (10:00)
[2024-11-14] MEDS: MULTIPLE VITAMIN TAB PO SCH (10:00)
--- NOTE | 2024-11-14 13:39 | DVHPN2 ---
Reviewed: Care Plan, H&P, Labs, Medications, Previous Orders, Radiology Changes from previous H/P or p: No Changes Eyes: No Pain, No Vision change, No Conjunctivae inflammation, No Eyelid inflammation, No Other, No Redness ENT: No Ear pain, No Ear discharge, No Nose pain, No Nose discharge, No Nose congestion, No Mouth pain, No Mouth swelling, No Throat pain, No Throat swelling, No Other Cardiovascular: No Chest Pain, No Palpitations, No Orthopnea, No Paroxysmal Noc. Dyspnea, No Edema, No Lt Headedness, No Other Respiratory: No Cough, No Dry, No Shortness of breath, No SOB with excertion, No Wheezing, No Hemoptysis, No Pleuritic Pain, No Sputum, No Other Gastrointestinal: No Nausea, No Vomiting, No Abdominal Pain, No Diarrhea, No Constipation, No Melena, No Hematochezia, No Other Genitourinary: No Dysuria, No Frequency, No Incontinence, No Hematuria, No Retention, No Other Musculoskeletal: No other, No neck pain, No shoulder pain, No arm pain, No back pain, No hand pain, No leg pain, No foot pain Skin: No Rash, No Lesions, No Jaundice, No Bruising, No Other Objective Vitals Vital Signs Date Time Temp Pulse Resp B/P (MAP) Pulse Ox O2 Delivery O2 Flow Rate FiO2 11/14/24 09:41 82 96 Room Air* 0 21 11/14/24 09:41 98.5 16 141/87 (105) 98.5 Medications Current Medications Medications Dose Ordered Sig/Maisha Route Start Time Stop Time Status Last Admin Dose Admin Albuterol 2.5 mg Q4HPRN PRN NEB 11/14/24 04:30 Ipratropium [employer] 0.5 mg Q4HPRN PRN NEB 11/14/24 04:30 Sertraline HCl 100 mg DAILY PO 11/14/24 10:00 Quetiapine Fumarate 200 mg HS PO 11/14/24 22:00 Atorvastatin Calcium 40 mg HS PO 11/14/24 22:00 Famotidine 20 mg Q12HR IV 11/14/24 10:00 11/14/24 10:00 20 MG Sodium Chloride 10 ml Q8HR IV 11/14/24 06:00 11/14/24 06:00 10 ML Acetaminophen/ Hydrocodone Bitart 1 tab Q4HP PRN PO 11/14/24 04:30 Ondansetron HCl 4 mg Q4HP PRN IV 11/14/24 04:30 Docusate Sodium 100 mg BIDPRN PRN PO 11/14/24 04:30 Ascorbic Acid 500 mg BID PO 11/14/24 10:00 11/14/24 10:00 500 MG Multivitamins 1 tab DAILY PO 11/14/24 10:00 11/14/24 10:00 1 TAB Acetaminophen 650 mg Q6HP PRN PO 11/14/24 04:30 Nitroglycerin 0.4 mg Q5MINP PRN SL 11/14/24 05:15 Morphine Sulfate 2 mg Q30M PRN IV 11/14/24 05:15 Laboratory Results Laboratory Tests 11/14/24 04:51 Chemistry Test 11/13/24 21:43 11/14/24 04:51 Albumin 4.2 g/dL (3.2-4.8) 4.3 g/dL (3.2-4.8) Calcium Level 8.9 mg/dL (8.7-10.4) 9.1 mg/dL (8.7-10.4) Magnesium Level 2.1 mg/dL (1.6-2.6) Total Protein 6.7 g/dL (5.7-8.2) 6.9 g/dL (5.7-8.2) LFT Test 11/13/24 21:43 11/14/24 04:51 Alanine Aminotransferase (ALT) 17 U/L (7-40) 18 U/L (7-40) Alkaline Phosphatase 57 U/L (46-116) 60 U/L (46-116) Aspartate Amino Transferase (AST) 19 U/L (13-40) 19 U/L (13-40) Total Bilirubin < 0.2 mg/dL (0.2-1.0) L 0.2 mg/dL (0.2-1.0) Urinalysis Test 11/13/24 21:17 Urine Color Colorless (Yellow) Urine Clarity Clear (Clear) Urine pH 6.5 (5.0-9.0) Urine Specific [place] 1.005 (1.001-1.035) Urine Protein Negative (Negative) Urine Ketones Negative (Negative) Urine Blood Negative /uL (Negative) Urine Nitrite Negative (Negative) Urine Bilirubin Negative (Negative) Urine Urobilinogen Normal mg/dL (Negative) Urine Leukocyte Esterase Negative /uL (Negative) Urine RBC <1 /hpf (0 - 3) Urine Microscopic WBC < 1 /HPF (0-3) Urine Squamous Epithelial Cells None seen /hpf (<5) Urine Bacteria None seen /hpf (None Seen) Urine Glucose Normal mg/dL (Normal) Labs and/or images reviewed: Labs reviewed by me, Image(s) reviewed by me Assessment/Plan Assessment/Plan Acute generalized weakness Acute hypokalemia: Replace potassium History of asthma Acute COPD exacerbation Schizophrenia Depression Hypercholesterolemia Check Kelsey test Check flu test Urine drug screen Time Spent 70 minutes Advanced care planning time 20 minutes Patient is full code Plan discussed with: Patient My Orders Orders - TAWANA SAMANO MD Procedure Category Date Status Time Covid19 Antigen Dariela LAB 11/14/24 Verified Rapid Influenza A&B LAB 11/14/24 Verified 13:37 Date of Service: Nov 14, 2024 Billing Provider: TAWANA SAMANO MD Common Visit Codes: [id number] CARE 30-74 MIN TAWANA SAMANO MD Nov 14, 2024 13:39
[2024-11-14 15:39] LABS: Benzodiazephine Screen, Urine Neg (NEGATIVE); Cannabinoid Screen, Urine Pos (NEGATIVE)
[2024-11-14 15:53] LABS: Amphetamine Screen, Urine Neg (NEGATIVE); Barbiturate Scree,Urine Neg (NEGATIVE); Cocaine Screen, Urine Neg (NEGATIVE); Opiate Scree,Urine Neg (NEGATIVE); Phencyclidine Screen, Urine Neg (NEGATIVE)
[2024-11-14 17:03] LABS: COVID19 ANTIGEN SOFIA FIA NEGATIVE (NEGATIVE)
[2024-11-14] MEDS: ATORVASTATIN 20 MG TAB PO SCH (21:13)
[2024-11-15] VITALS (9 sets, daily range): BP systolic 117–132; BP diastolic 56–81; PULSE 67–87; RESP 17–19; TEMP 97.4–98.3; O2SAT 94–98
[2024-11-15 06:27] LABS: Alanine Aminotransferase 17 U/L (7-40); Alkaline Phosphatase 54 U/L (46-116); Anion Gap 6 (5-15); BUN/Creatinine Ratio 11.8 (10.0-20.0); Blood Urea Nitrogen 12 mg/dL (9-23); Calcium 9.1 mg/dL (8.7-10.4); Carbon Dioxide 25 mmol/L (20-31); Glucose 101 mg/dL (74-106); Potassium 3.9 mmol/L (3.5-5.1); Total Protein 6.5 g/dL (5.7-8.2)
[2024-11-15 06:28] LABS: Albumin 4.0 g/dL (3.2-4.8)
[2024-11-15 06:31] LABS: Bilirubin, Total 0.3 mg/dL (0.2-1.0); Chloride 115 mmol/L (98-107); Sodium 146 mmol/L (136-145)
[2024-11-15 06:35] LABS: Hematocrit 36.6 % (41.0-53.0); Hemoglobin 13.0 g/dL (13.5-17.5); Mean Corpuscular Hemoglobin 33.9 pg (28.0-32.0); Mean Corpuscular Volume 95.8 fL (80.0-100.0); Nucleated Red Blood Cells % 0.0 %
--- NOTE | 2024-11-15 13:21 | DVHPN2 ---
Reviewed: Care Plan, H&P, Labs, Medications, Previous Orders, Radiology Changes from previous H/P or p: No Changes Eyes: No Pain, No Vision change, No Conjunctivae inflammation, No Eyelid inflammation, No Other, No Redness ENT: No Ear pain, No Ear discharge, No Nose pain, No Nose discharge, No Nose congestion, No Mouth pain, No Mouth swelling, No Throat pain, No Throat swelling, No Other Cardiovascular: No Chest Pain, No Palpitations, No Orthopnea, No Paroxysmal Noc. Dyspnea, No Edema, No Lt Headedness, No Other Respiratory: No Cough, No Dry, No Shortness of breath, No SOB with excertion, No Wheezing, No Hemoptysis, No Pleuritic Pain, No Sputum, No Other Gastrointestinal: No Nausea, No Vomiting, No Abdominal Pain, No Diarrhea, No Constipation, No Melena, No Hematochezia, No Other Genitourinary: No Dysuria, No Frequency, No Incontinence, No Hematuria, No Retention, No Other Musculoskeletal: No other, No neck pain, No shoulder pain, No arm pain, No back pain, No hand pain, No leg pain, No foot pain Skin: No Rash, No Lesions, No Jaundice, No Bruising, No Other Objective Vitals Vital Signs Date Time Temp Pulse Resp B/P (MAP) Pulse Ox O2 Delivery O2 Flow Rate FiO2 11/15/24 08:48 98.3 80 18 121/76 (91) 96 98.3 11/15/24 07:46 Room Air* 0 21 Intake/Output Intake and Output 11/15/24 07:00 Intake Total 240 ml Output Total 1350 ml Balance -1110 ml Intake Oral 240 ml Output Urine Total 1350 ml # Voids 3 Medications Current Medications Medications Dose Ordered Sig/Maisha Route Start Time Stop Time Status Last Admin Dose Admin Albuterol 2.5 mg Q4HPRN PRN NEB 11/14/24 04:30 Ipratropium [place] 0.5 mg Q4HPRN PRN NEB 11/14/24 04:30 Sertraline HCl 100 mg DAILY PO 11/14/24 10:00 11/15/24 09:21 100 MG Quetiapine Fumarate 200 mg HS PO 11/14/24 22:00 Atorvastatin Calcium 40 mg HS PO 11/14/24 22:00 11/14/24 21:13 40 MG Famotidine 20 mg Q12HR IV 11/14/24 10:00 11/15/24 09:20 20 MG Sodium Chloride 10 ml Q8HR IV 11/14/24 06:00 11/15/24 09:21 10 ML Acetaminophen/ Hydrocodone Bitart 1 tab Q4HP PRN PO 11/14/24 04:30 Ondansetron HCl 4 mg Q4HP PRN IV 11/14/24 04:30 Docusate Sodium 100 mg BIDPRN PRN PO 11/14/24 04:30 Ascorbic Acid 500 mg BID PO 11/14/24 10:00 11/15/24 09:21 500 MG Multivitamins 1 tab DAILY PO 11/14/24 10:00 11/15/24 09:21 1 TAB Acetaminophen 650 mg Q6HP PRN PO 11/14/24 04:30 Nitroglycerin 0.4 mg Q5MINP PRN SL 11/14/24 05:15 Morphine Sulfate 2 mg Q30M PRN IV 11/14/24 05:15 Laboratory Results Laboratory Tests 11/15/24 05:40 Chemistry Test 11/15/24 05:40 Albumin 4.0 g/dL (3.2-4.8) Calcium Level 9.1 mg/dL (8.7-10.4) Total Protein 6.5 g/dL (5.7-8.2) LFT Test 11/15/24 05:40 Alanine Aminotransferase (ALT) 17 U/L (7-40) Alkaline Phosphatase 54 U/L (46-116) Aspartate Amino Transferase (AST) 18 U/L (13-40) Total Bilirubin 0.3 mg/dL (0.2-1.0) Urinalysis Test 11/13/24 21:17 Urine Color Colorless (Yellow) Urine Clarity Clear (Clear) Urine pH 6.5 (5.0-9.0) Urine Specific [place] 1.005 (1.001-1.035) Urine Protein Negative (Negative) Urine Ketones Negative (Negative) Urine Blood Negative /uL (Negative) Urine Nitrite Negative (Negative) Urine Bilirubin Negative (Negative) Urine Urobilinogen Normal mg/dL (Negative) Urine Leukocyte Esterase Negative /uL (Negative) Urine RBC <1 /hpf (0 - 3) Urine Microscopic WBC < 1 /HPF (0-3) Urine Squamous Epithelial Cells None seen /hpf (<5) Urine Bacteria None seen /hpf (None Seen) Urine Glucose Normal mg/dL (Normal) Labs and/or images reviewed: Labs reviewed by me, Image(s) reviewed by me Assessment/Plan Assessment/Plan Acute generalized weakness Acute hypokalemia: Replace potassium History of asthma Acute COPD exacerbation Schizophrenia Depression Hypercholesterolemia Kelsey test negative Flu test negative Unsteady gait: MRI brain Neurology consult for Dr. Rodriguez Chronic current marijuana abuse: Counseling Time spent 50 minutes Advanced care planning time 20 minutes Patient is full code Plan discussed with: Patient Date of Service: Nov 15, 2024 Billing Provider: TAWANA SAMANO MD Common Visit Codes: [id number] INP/OBS CARE(HIGH) TAWANA SAMANO MD Nov 15, 2024 13:21
--- NOTE | 2024-11-15 14:12 | DVH ---
EXAMINATION: MRI BRAIN HEAD WO CONTRAST INDICATION: Unable to walk COMPARISON: None TECHNIQUE: Multiplanar, multisequence magnetic resonance imaging of the brain was performed without the use of i ntravenous contrast. FINDINGS: No evidence of acute or remote infarct. No intracranial hemorrhage. No mass effect. There is periventricular/deep white matter T2/FLAIR hyperintensity is nonspecific, but most commonly associated with chronic microvascular disease. The ventricles and sulci are normal in size for age. Clear basal cisterns. Flow voids in the major intracranial vessels are maintained. No abnormality of the orbits. Paranasal sinuses and mastoid air cells are clear. No abnormality of the visualized osseous structures and extracranial soft tissues. IMPRESSION: No acute infarct, intracranial hemorrhage, mass effect, or hydrocephalus.
--- NOTE | 2024-11-15 23:02 | DVHINCON2 ---
Date of service: Nov 15, [address] Samano Reason for Consultation Unable to walk History of Present Illness Mr. Harrison is a 64 years old left-handed gentleman with a history of asthma, COPD, arthritis, schizophrenia, he came to the [facility] on 11/13/2024 with a chief complaint of general weakness and gait disturbance. At this time, he is alert and fully oriented, he provided the following history He said he had no problem with walking or standing till two months ago, one day he woke up with general weakness and problem has been progressive. He has progressive difficulty with walking, now he only walk with support/a walker, he has significantly diminished since to pinprick and light touch in the whole upper extremities from the shoulder to all the fingers, and from the hips to the feet. He reports no difficulty with bladder control, but he has bowel incontinence Since 2014 or earlier, he developed intense low back pain, he was said to have trouble with for discs. He had epidural , but for the last two weeks, he has no back pain Urinalysis, 11/13/2024: Unremarkable UDS, 11/13/2024: Cannabinoids Plasma alcohol, 11/14/2024: <3 WBC/HB/PLT/MCV, 11/15/2024: 5.6/13/191/95.8 Sodium, 11/13/2024: 146, 11/14/2024: 146, 11/15/2024: 146 Liver function tests, 11/13/2024: Unremarkable TG/HDL/LDL/HDL, 04/2023: 99/150/99/43 Vitamin B12, 04/2023:410 TSH, 11/14/2024: 3.51 MRI head, 11/15/2024: No acute infarct, intracranial hemorrhage, mass effect, or hydrocephalus. Past Medical History Asthma, COPD, schizophrenia, arthritis Past Surgical History Right ankle surgery Family History: FH: cancer G8 FATHER Family History No major medical problems Social History He uses marijuana, but denies a history of tobacco smoking, drug or alcohol ab use Allergies: Coded Allergies: NO KNOWN ALLERGIES (Unverified , 11/17/22) Home Meds Active Scripts Rifampin (Rifampin) 300 Mg Cap, 300 MG PO BIDPC for 45 Days, #90 CAP Prov:STEPHANIE HERNANDEZ RESIDENT 04/19/23 Pantoprazole Sodium Sesquihydr (Pantoprazole Sodium) 40 Mg Tab, 40 MG PO DAILY for 30 Days, #30 TAB Prov:STEPHANIE HERNANDEZ [facility] 04/19/23 Multiple Vitamin (Mvi Tab) 1 Tab Tb, 1 TAB PO DAILY for 30 Days, #30 TAB Prov:STEPHANIE HERNANDEZ [facility] 04/19/23 Ergocalciferol (VITAMIN D 07218 UNIT) 50,000 [place], [address] UNIT PO Q7D for 10 Days, #10 CAP Prov:STEPHANIE HERNANDEZ [facility] 04/19/23 Cyanocobalamin (Gnp Vitamin B12) 500 Mcg Tab, 1000 MCG PO DAILY for 30 Days, #60 TAB Prov:STEPHANIE HERNANDEZ [facility] 04/19/23 Ascorbic Acid (VITAMIN C TABLET) 500 Mg Tb, 500 MG PO BID for 30 Days, #60 TAB Prov:STEPHANIE HERNANDEZ [facility] 04/19/23 Acetaminophen (Acetaminophen) 325 Mg Tab, 650 MG PO Q6HP PRN for 30 Days, #240 TAB Prov:STEPHANIE HERNANDEZ [facility] 04/19/23 Hydrocodone-Acetaminophen (Hydrocodone Bitartrate/AC 5-325 mg) 1 Tab Tab, 1 TAB PO QID PRN, #60 TAB Prov:TAWANA SAMANO MD 02/10/23 Reported Medications Quetiapine Fumerate (QUETIAPINE FUMARATE) 400 Mg Tab, 2 TAB PO HS 01/02/23 Ibuprofen Micronized (Ibuprofen) 800 Mg Tab, 1 TAB PO Q8HPRN PRN for pain 01/02/23 Albuterol Sulfate (Ventolin) 2.5 Mg/3 Ml Nb, 2.5 MG INH Q6HP, INH 11/18/22 Simvastatin (Simvastatin) 40 Mg Tab, 40 MG PO DAILY for 30 Days 11/18/22 Sertraline Hcl (Zoloft) 100 Mg Tab, 200 MG PO DAILY, TAB 11/18/22 Review of Systems As above, the other systems are negative Vital Signs Vital Signs Date Time Temp Pulse Resp B/P (MAP) Pulse Ox O2 Delivery O2 Flow Rate FiO2 11/15/24 21:00 97.6 76 19 132/81 (98) 96 97.6 11/15/24 19:52 Room Air* 0 21 Physical Exam GENERAL EXAM: General: the patient is well developed and nourished. No acute distress. HEENT: Normocephalic, neck is supple, no carotid bruits. No mass. RESPIRATORY: Normal respiratory effort with symmetrical lung expansion. Lungs clear to auscultation. CARDIOVASCULAR: Regular rate and rhythm with no murmurs. S1, S2. ABDOMEN: Soft, nontender, normal bowel sound MUSCULOSKELETAL EXAM: No tenderness to palpation in the whole spine NEUROLOGICAL: MENTAL STATUS: Awake and alert. Oriented to person, place, time and general circumstances. Able to give personal history. SPEECH, LANGUAGE, HIGHER CORTICAL FUNCTION: no aphasia or dysathria. CRANIAL NERVES: #2: Intact visual mckeon to confrontation. The optic discs were sharp #3,4,6: Pupils are equal, round and reactive. EOMs full and conjugate. Mild bilateral gaze evoked nystagmus. #5: Facial sensation intact in all three divisions bilaterally. Mandibular strength intact. #7: Facial muscles symmetrical and strength intact. #8: Hearing grossly normal to voice. #9,10: Uvula and soft palate rise in the midline. Swallow and voice are normal. #11: Trapezius and sternomastoid strength intact bilaterally. #12: Tongue midline. No fasciculations or atrophy. SENSATION: Sensation to touch and pinprick is diminished in the lower extremities below the hip, upper extremity below the shoulder, there is a questionable sensory marked in T8-T9 dermatomes MOTOR: Normal tone in the upper and lower extremity. Normal muscle bulk. No fasciculations. No abnormal movements or posturing. Muscle strength of the major groups in the upper extremities is 4/5. Muscle strength of the major groups in the lower extremities is 4/5. REFLEXES: Deep tendon reflexes are symmetrical, 2/4. No pathological reflexes. CEREBELLAR/COORDINATION: Finger to nose is normal bilaterally. GAIT/STATION: deferred. Labs/Diagnostic Data Labs Test 11/15/24 05:40 11/14/24 16:30 11/14/24 04:51 11/13/24 21:43 Range/Units White Blood Count 5.6 4.4-10.8 10^3/uL Red Blood Count 3.82 L 4.5-5.90 10^6/uL Hemoglobin 13.0 L 13.5-17.5 g/dL Hematocrit 36.6 L 41.0-53.0 % Mean Corpuscular Volume 95.8 80.0-100.0 fL Mean Corpuscular Hemoglobin 33.9 H 28.0-32.0 pg Mean Corpuscular Hemoglobin Concent 35.4 32.0-36.0 g/dL Red Cell Distribution Width 12.9 11.8-14.3 % Platelet Count 191 140-450 10^3/uL Mean Platelet Volume 7.6 6.9-10.8 fL Neutrophils (%) (Auto) 56.1 37.0-80.0 % Lymphocytes (%) (Auto) 25.7 10.0-50.0 % Monocytes (%) (Auto) 11.3 0.0-12.0 % Eosinophils (%) (Auto) 6.4 0.0-7.0 % Basophils (%) (Auto) 0.5 0.0-2.0 % Neutrophils # (Auto) 3.2 1.6-8.6 10 ^3/uL Lymphocytes # (Auto) 1.4 0.4-5.4 10 ^3/uL Monocytes # (Auto) 0.6 0-1.3 10 ^3/uL Eosinophils # (Auto) 0.4 0-0.8 10 ^3/uL Basophils # (Auto) 0 0-0.2 10 ^3/uL Nucleated Red Blood Cells 0.0 % Sodium Level 146 H 136-145 mmol/L Potassium Level 3.9 3.5-5.1 mmol/L Chloride Level 115 H 98-107 mmol/L Carbon Dioxide Level 25 20-31 mmol/L Anion Gap 6 5-15 Blood Urea Nitrogen 12 9-23 mg/dL Creatinine 1.02 0.700-1.30 mg/dL Glomerular Filtration Rate Calc 83 >90 mL/min BUN/Creatinine Ratio 11.8 10.0-20.0 Serum Glucose 101 74-106 mg/dL Calcium Level 9.1 8.7-10.4 mg/dL Total Bilirubin 0.3 0.2-1.0 mg/dL Aspartate Amino Transferase (AST) 18 13-40 U/L Alanine Aminotransferase (ALT) 17 7-40 U/L Alkaline Phosphatase 54 46-116 U/L Total Protein 6.5 5.7-8.2 g/dL Albumin 4.0 3.2-4.8 g/dL Influenza Type A Antigen Negative Negative Influenza Type B Antigen Negative Negative SARS-CoV-2 Antigen (Rapid) Negative NEGATIVE Thyroid Stimulating Hormone (TSH) 3.51 0.55-4.78 uIU/mL Plasma/Serum Blood Alcohol < 3.0 <10 mg/dL Magnesium Level 2.1 1.6-2.6 mg/dL Test 11/13/24 21:17 Range/Units Urine Color Colorless Yellow Urine Clarity Clear Clear Urine pH 6.5 5.0-9.0 Urine Specific [place] 1.005 1.001-1.035 Urine Protein Negative Negative Urine Ketones Negative Negative Urine Blood Negative Negative /uL Urine Nitrite Negative Negative Urine Bilirubin Negative Negative Urine Urobilinogen Normal Negative mg/dL Urine Leukocyte Esterase Negative Negative /uL Urine RBC <1 0 - 3 /hpf Urine Microscopic WBC < 1 0-3 /HPF Urine Squamous Epithelial Cells None seen <5 /hpf Urine Bacteria None seen None Seen /hpf Urine Glucose Normal Normal mg/dL Urine Opiates Screen Neg NEGATIVE Urine Fentanyl Screen Neg NEGATIVE Urine Barbiturates Screen Neg NEGATIVE Urine Phencyclidine Screen Neg NEGATIVE Urine Amphetamines Screen Neg NEGATIVE Urine Benzodiazepines Screen Neg NEGATIVE Urine Cocaine Screen Neg NEGATIVE Urine Cannabinoids Screen Pos NEGATIVE Assessment General weakness Gait disturbance Hypoesthesia in the upper and lower extremities, bowel incontinence, sudden disappear of chronic low back pain 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 Although this document has been carefully reviewed, there may still be some phonetic and typographical errors. These areas are purely typographical due to imperfections of the software programs, and do not reflect any compromise in the patient's medical care. Plan discussed with: Patient, Other JOSE LOPEZ MD Nov 15, 2024 23:02
[2024-11-15] MEDS: LORazepam 2MG/ML-1ML VIAL IV ONE (23:45)
[2024-11-16] VITALS (12 sets, daily range): BP systolic 118–137; BP diastolic 74–84; PULSE 73–101; RESP 17–18; TEMP 97–98.8; O2SAT 95–100
--- NOTE | 2024-11-16 09:05 | DVH ---
CLINICAL INFORMATION: Syringomyelia, cervical spine myelopathy. TECHNIQUE: Multisequence multiplanar MRI images of the cervical spine were obtained without contrast . COMPARISON: None FINDINGS: Bones: Straightening of the normal cervical lordosis. No significant spondylolisthesis. Vertebral bod y heights are maintained. Posterior elements are intact. No acute fracture. No focal suspicious marro w signal abnormality. Spinal cord: There is t2/stir hyperintense signal in the spinal cord at the C3-C4 level, associated w ith spinal canal stenosis at this level and extending up to 4 cm in proximal to distal dimension invo lving the C3-C5 levels, likely due to myelopathy associated with the spinal canal stenosis at C3-C4 d escribed below. Paraspinal soft tissues: Paraspinal and prevertebral soft tissues are unremarkable. Other: No other significant findings. Cervical disc levels: C2-C3: Disc desiccation. Mild disc bulge mildly flattening the ventral aspect of the thecal sac. Ther e is a [id number]-[id number] degree of congenital spinal canal stenosis. Facet and uncinate hypertrophy w ith moderate to severe left and mild right neural foraminal stenoses. C3-C4: Disc desiccation with mild disc space narrowing and diffuse disc bulge superimposed on congeni waqar spinal canal narrowing causing moderate to severe spinal canal stenosis, abutting the ventral asp ect of the spinal cord, with concomitant infolding of the ligamentum flavum indenting the posterior a spect of the spinal cord. There is associated t2/stir hyperintense signal in the spinal cord consiste nt with myelopathy in the appropriate clinical setting as described above. There is effacement of the lateral recesses. Facet and uncinate hypertrophy with severe left and moderate to severe right neura l foraminal stenoses. C4-C5: Disc desiccation. Diffuse disc bulge mildly indenting the ventral aspect of the thecal sac, s uperimposed on congenital spinal canal narrowing, with [id number] spinal canal stenosis and mil d partial effacement of the lateral recesses. Facet and uncinate hypertrophy with moderate right and [id number] left neural foraminal stenoses. C5-C6: Disc desiccation with mild disc bulge mildly indenting the ventral aspect of the thecal sac. T here is congenital spinal canal narrowing, with [id number] spinal canal stenosis. Facet and unc inate hypertrophy with gbdg-mn-tysslant right neural foraminal stenosis. C6-C7: Disc desiccation with mild disc space narrowing and diffuse disc bulge superimposed on congeni waqar spinal canal narrowing, causing moderate spinal canal stenosis and partial effacement of the late ral recesses. Facet and uncinate hypertrophy with [id number] bilateral neural foraminal stenose s. C7-T1: Disc desiccation. No significant spinal canal or neural foraminal stenosis. IMPRESSION: 1. Degenerative disc disease and facet/ uncinate disease in the cervical spine with associated spinal canal, subarticular, and neural foraminal stenoses as detailed above. 2. There is a degree of congenital spinal canal narrowing contributing to the spinal canal stenoses. 3. T2/stir hyperintense signal in the spinal cord extending from the C3-C5 levels consistent with mye lopathy secondary to the spinal canal stenosis at C3-C4. 4. Additional findings as described above.
[2024-11-16] MEDS: IPRATROPIUM BROM 0.5 MG/2.5ML INH SOL NEB PRN (09:14)
[2024-11-16] MEDS: ALBUTEROL SULF 2.5 MG/0.5ML(0.5%) NEB SOLN NEB PRN (09:14)
--- NOTE | 2024-11-16 09:21 | DVHPN2 ---
Progress Note - Dictate Date Seen: Nov 16, 2024 Medical Necessity Reason Pt with a Central, PICC or Fol: No Subjective Mr. Harrison is a 64 years old left-handed gentleman with a history of asthma, COPD, arthritis, schizophrenia, he came to the [facility] on 11/13/2024 with a chief complaint of general weakness and gait disturbance. I have seen and examined the patient, along with his sitter and nurse. He is alert and fully oriented, no new complaints Again he confirmed the problem started two months ago on waking up, and he denies ongoing back pain or neck pain Urinalysis, 11/13/2024: Unremarkable UDS, 11/13/2024: Cannabinoids Plasma alcohol, 11/14/2024: <3 WBC/HB/PLT/MCV, 11/15/2024: 5.6/13/191/95.8 Sodium, 11/13/2024: 146, 11/14/2024: 146, 11/15/2024: 146 Liver function tests, 11/13/2024: Unremarkable TG/HDL/LDL/HDL, 04/2023: 99/150/99/43 Vitamin B12, 04/2023:410 TSH, 11/14/2024: 3.51 MRI head, 11/15/2024: No acute infarct, intracranial hemorrhage, mass effect, or hydrocephalus. MRI C-spine, 11/16/2024: 1. Degenerative disc disease and facet/ uncinate disease in the cervical spine with associated spinal canal, subarticular, and neural foraminal stenoses as detailed above. 2. There is a degree of congenital spinal canal narrowing contributing to the spinal canal stenoses. 3. T2/stir hyperintense signal in the spinal cord extending from the C3-C5 levels consistent with myelopathy secondary to the spinal canal stenosis at C3-C4. 4. Additional findings as described above. vital signs Vital Sign Date Time Temp Pulse Resp B/P (MAP) Pulse Ox O2 Delivery O2 Flow Rate FiO2 11/16/24 08:00 Room Air* 0 21 11/16/24 05:00 97.7 79 18 124/76 (92) 98 97.7 Total Intake and Output 11/15/24 11/15/24 11/16/24 15:00 23:00 07:00 Intake Total 1200 ml 1140 ml Output Total 900 ml Balance 1200 ml 240 ml medications Current Medications Medications Dose Ordered Sig/Maisha Route Start Time Stop Time Status Last Admin Dose Admin Albuterol 2.5 mg Q4HPRN PRN NEB 11/14/24 04:30 Ipratropium Entiat 0.5 mg Q4HPRN PRN NEB 11/14/24 04:30 Sertraline HCl 100 mg DAILY PO 11/14/24 10:00 11/15/24 09:21 100 MG Quetiapine Fumarate 200 mg HS PO 11/14/24 22:00 11/15/24 21:07 200 MG Atorvastatin Calcium 40 mg HS PO 11/14/24 22:00 11/15/24 21:07 40 MG Famotidine 20 mg Q12HR IV 11/14/24 10:00 11/15/24 21:06 20 MG Sodium Chloride 10 ml Q8HR IV 11/14/24 06:00 11/16/24 06:17 10 ML Acetaminophen/ Hydrocodone Bitart 1 tab Q4HP PRN PO 11/14/24 04:30 Ondansetron HCl 4 mg Q4HP PRN IV 11/14/24 04:30 Docusate Sodium 100 mg BIDPRN PRN PO 11/14/24 04:30 Ascorbic Acid 500 mg BID PO 11/14/24 10:00 11/15/24 21:07 500 MG Multivitamins 1 tab DAILY PO 11/14/24 10:00 11/15/24 09:21 1 TAB Acetaminophen 650 mg Q6HP PRN PO 11/14/24 04:30 Nitroglycerin 0.4 mg Q5MINP PRN SL 11/14/24 05:15 Morphine Sulfate 2 mg Q30M PRN IV 11/14/24 05:15 objective General: the patient is well developed and nourished. No acute distress. MUSCULOSKELETAL EXAM: No tenderness to palpation in the whole spine MENTAL STATUS: Subjective SPEECH, LANGUAGE, HIGHER CORTICAL FUNCTION: no aphasia or dysathria. CRANIAL NERVES: Pupils are equal, round and reactive. EOMs full and conjugate. Mild bilateral gaze evoked nystagmus. Facial sensation intact in all three divisions bilaterally. Mandibular strength intact. Facial muscles symmetrical and strength intact. Tongue midline. No fasciculations or atrophy. SENSATION: Sensation to touch and pinprick is diminished in the lower extremities below the hip, upper extremity below the shoulder, there is a questionable sensory dermatomes in Rt: T6-&7, Lt: T5-T6 MOTOR: Normal tone in the upper and lower extremity. Normal muscle bulk. No fasciculations. No abnormal movements or posturing. Muscle strength of the major groups in the upper extremities is 4/5. Muscle strength of the major groups in the lower extremities is 4/5. REFLEXES: Deep tendon reflexes are symmetrical, 2/4. No pathological reflexes. CEREBELLAR/COORDINATION: Finger to nose is normal bilaterally. GAIT/STATION: deferred. 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 Although this document has been carefully reviewed, there may still be some phonetic and typographical errors. These areas are purely typographical due to imperfections of the software programs, and do not reflect any compromise in the patient's medical care. Prognosis poor Plan discussed with: Patient, Other Total Time (mins): 35 JOSE LOPEZ MD Nov 16, 2024 09:21
--- NOTE | 2024-11-16 10:40 | DVHPN2 ---
Reviewed: Care Plan, H&P, Labs, Medications, Previous Orders, Radiology Changes from previous H/P or p: No Changes Eyes: No Pain, No Vision change, No Conjunctivae inflammation, No Eyelid inflammation, No Other, No Redness ENT: No Ear pain, No Ear discharge, No Nose pain, No Nose discharge, No Nose congestion, No Mouth pain, No Mouth swelling, No Throat pain, No Throat swelling, No Other Cardiovascular: No Chest Pain, No Palpitations, No Orthopnea, No Paroxysmal Noc. Dyspnea, No Edema, No Lt Headedness, No Other Respiratory: No Cough, No Dry, No Shortness of breath, No SOB with excertion, No Wheezing, No Hemoptysis, No Pleuritic Pain, No Sputum, No Other Gastrointestinal: No Nausea, No Vomiting, No Abdominal Pain, No Diarrhea, No Constipation, No Melena, No Hematochezia, No Other Genitourinary: No Dysuria, No Frequency, No Incontinence, No Hematuria, No Retention, No Other Musculoskeletal: No other, No neck pain, No shoulder pain, No arm pain, No back pain, No hand pain, No leg pain, No foot pain Skin: No Rash, No Lesions, No Jaundice, No Bruising, No Other Objective Vitals Vital Signs Date Time Temp Pulse Resp B/P (MAP) Pulse Ox O2 Delivery O2 Flow Rate FiO2 11/16/24 08:00 Room Air* 0 21 11/16/24 05:00 97.7 79 18 124/76 (92) 98 97.7 Intake/Output Intake and Output 11/16/24 07:00 Intake Total 2340 ml Output Total 900 ml Balance 1440 ml Intake Oral 2340 ml Output Urine Total 900 ml # Voids 7 # Bowel Movements 1 Medications Current Medications Medications Dose Ordered Sig/Maisha Route Start Time Stop Time Status Last Admin Dose Admin Albuterol 2.5 mg Q4HPRN PRN NEB 11/14/24 04:30 11/16/24 09:14 2.5 MG Ipratropium Liberal 0.5 mg Q4HPRN PRN NEB 11/14/24 04:30 11/16/24 09:14 0.5 MG Sertraline HCl 100 mg DAILY PO 11/14/24 10:00 11/16/24 09:17 100 MG Quetiapine Fumarate 200 mg HS PO 11/14/24 22:00 11/15/24 21:07 200 MG Atorvastatin Calcium 40 mg HS PO 11/14/24 22:00 11/15/24 21:07 40 MG Famotidine 20 mg Q12HR IV 11/14/24 10:00 11/16/24 09:16 20 MG Sodium Chloride 10 ml Q8HR IV 11/14/24 06:00 11/16/24 06:17 10 ML Acetaminophen/ Hydrocodone Bitart 1 tab Q4HP PRN PO 11/14/24 04:30 Ondansetron HCl 4 mg Q4HP PRN IV 11/14/24 04:30 Docusate Sodium 100 mg BIDPRN PRN PO 11/14/24 04:30 Ascorbic Acid 500 mg BID PO 11/14/24 10:00 11/16/24 09:17 500 MG Multivitamins 1 tab DAILY PO 11/14/24 10:00 11/16/24 09:17 1 TAB Acetaminophen 650 mg Q6HP PRN PO 11/14/24 04:30 Nitroglycerin 0.4 mg Q5MINP PRN SL 11/14/24 05:15 Morphine Sulfate 2 mg Q30M PRN IV 11/14/24 05:15 Laboratory Results Laboratory Tests 11/15/24 05:40 HgA1c, TSH Test 11/15/24 23:46 Hemoglobin A1c 5.6 % A1C (<5.7) Urinalysis Test 11/13/24 21:17 Urine Color Colorless (Yellow) Urine Clarity Clear (Clear) Urine pH 6.5 (5.0-9.0) Urine Specific [place] 1.005 (1.001-1.035) Urine Protein Negative (Negative) Urine Ketones Negative (Negative) Urine Blood Negative /uL (Negative) Urine Nitrite Negative (Negative) Urine Bilirubin Negative (Negative) Urine Urobilinogen Normal mg/dL (Negative) Urine Leukocyte Esterase Negative /uL (Negative) Urine RBC <1 /hpf (0 - 3) Urine Microscopic WBC < 1 /HPF (0-3) Urine Squamous Epithelial Cells None seen /hpf (<5) Urine Bacteria None seen /hpf (None Seen) Urine Glucose Normal mg/dL (Normal) Labs and/or images reviewed: Labs reviewed by me, Image(s) reviewed by me Assessment/Plan Assessment/Plan Acute generalized weakness 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 Rodriguez appreciated, Chronic current marijuana abuse: Counseling Time spent 50 minutes Advanced care planning time 20 minutes Patient is full code Plan discussed with: Patient My Orders Orders - TAWANA SAMANO MD Procedure Category Date Status Time Brain Head Wo Contrast MRI 11/15/24 Resulted 13:18 * Neurology Consult CONS 11/15/24 Transmitted 13:19 Cleanse Wound With KATIE 11/15/24 In Process Wound Clean 14:09 * Dietary Consult CONS 11/15/24 Transmitted 19:27 Date of Service: Nov 16, 2024 Billing Provider: TAWANA SAMANO MD Common Visit Codes: [id number] INP/OBS CARE(HIGH) TAWANA SAMANO MD Nov 16, 2024 10:40
--- NOTE | 2024-11-16 11:55 | DVH ---
CLINICAL HISTORY: 64 years old, Male; Syringomyelia. TECHNIQUE: Multi sequence multi planar MRI images of the thoracic spine were obtained without IV con trast. COMPARISON: No prior imaging of the thoracic spine was available for comparison at the time of dictat ion. FINDINGS: Vertebral body alignment is within normal limits. Vertebral body heights are maintained. Posterior elements are intact. No evidence of acute fracture. Multilevel disc desiccation throughout the thoracic spine with areas of moderate disc space narrowing. Prominent Modic type 2 endplate valera ges at T5-T6. No focal suspicious marrow signal abnormality. Spinal cord is normal in signal intensit y and morphology. No syrinx in the thoracic spinal cord. Paraspinal soft tissues are unremarkable. Thoracic disc levels: T1-T2: Disc desiccation. No significant spinal canal or neural foraminal stenosis. T2-T3: Disc desiccation with moderate disc space narrowing and central disc protrusion. Mild spinal c anal stenosis. Facet hypertrophy with mild bilateral neural foraminal stenoses. T3-T4: Moderate disc space narrowing with diffuse disc bulge mildly indenting the ventral aspect of t he thecal sac, causing mild spinal canal stenosis. Facet hypertrophy with [id number] bilateral neural foraminal stenoses. T4-T5: Moderate disc space narrowing. Diffuse disc bulge mildly indenting the ventral aspect of the t hecal sac, causing mild spinal canal stenosis. Facet hypertrophy with mild bilateral neural foraminal stenoses. T5-T6: Disc desiccation with moderate to severe disc space narrowing. Diffuse disc bulge causing mil d spinal canal stenosis. Facet hypertrophy with moderate bilateral neural foraminal stenoses. T6-T7: Disc desiccation with mild disc space narrowing and diffuse disc bulge mildly flattening the v entral aspect of the thecal sac. No significant spinal canal stenosis or neural foraminal stenosis. T7-T8: Disc desiccation with mild to moderate disc space narrowing. No significant spinal canal or n eural foraminal stenosis. T8-T9: Disc desiccation with mild disc space narrowing. Mild disc bulge mildly indenting the ventral aspect of the thecal sac. Mild spinal canal stenosis. Facet hypertrophy with moderate bilateral neur al foraminal stenoses. T9-T10: Mild disc space narrowing with diffuse disc bulge causing mild spinal canal stenosis. Facet h ypertrophy with moderate bilateral neural foraminal stenoses, right greater than left. T10-T11: Disc desiccation. No significant spinal canal stenosis. Facet hypertrophy with moderate bila teral neural foraminal stenoses. T11-T12: Disc desiccation. No significant spinal canal or neural foraminal stenosis. T12-L1: Disc desiccation with no significant spinal canal or neural foraminal stenosis. IMPRESSION: 1. Degenerative disc disease and facet disease in the thoracic spine with associated spinal canal and neural foraminal stenoses as detailed above. 2. Prominent Modic type 2 endplate changes at T5-T6. 3. No signal abnormality in the spinal cord. 4. Additional findings as described above.
--- NOTE | 2024-11-16 13:24 | DVHINCON2 ---
Consultation - Spinal Surgery Date Seen: Nov 17, 2024 Referring Physician Referring Physician Attending Doctor: Tawana Samano MD Reason for Consultation Reason for Visit: Generalized weakness History of Present Illness History of Present Illness History of Present Illness The patient is a 64-year-old male with past medical history of arthritis, asthma, COPD, schizophrenia, depression, and hyperlipidemia who presented to [facility] ED with complaint of generalized weakness. Patient reports for the past month he has been having pain over his upper and lower extremities, usually require assistance with simple tasks, difficulty ambulating with frequent falls, getting worse today that prompted this visit. Patient was seen and evaluated in the ED, laboratory data shows WBC 6.3, hemoglobin 12.7, hematocrit 36.7, platelets 208, sodium 146, potassium 3.4, BUN 12, creatinine 1.03, glucose 87, calcium 9.1, blood pressure 145/84, heart rate 74, temperature 98.1 F, O2 saturation 96% on room air. Patient denied chest pain, no headache, dizziness, no diaphoresis, no shortness of breaths, no nausea, no vomiting, no fever, no chills. Patient was admitted for further evaluation and medical management. Past Medical/Surgical History Past Medical/Surgical History Past Medical History Arthritis, Asthma, COPD, Schizophrenia, Depression, HLD. Past Surgical History Denies all surgeries Family and Social History Family and Social History Family History Reviewed, noncontributory to the management of this case. Past Social History The patient lives at home, denies smoking, alcohol or illicit drugs abuse. Allergies and medications Allergies: Coded Allergies: NO KNOWN ALLERGIES (Unverified , 11/17/22) Home Meds Active Scripts Rifampin (Rifampin) 300 Mg Cap, 300 MG PO BIDPC for 45 Days, #90 CAP Prov:STEPHANIE HERNANDEZ [facility] 04/19/23 Pantoprazole Sodium Sesquihydr (Pantoprazole Sodium) 40 Mg Tab, 40 MG PO DAILY for 30 Days, #30 TAB Prov:STEPHANIE HERNANDEZ [facility] 04/19/23 Multiple Vitamin (Mvi Tab) 1 Tab Tb, 1 TAB PO DAILY for 30 Days, #30 TAB Prov:STEPHANIE HERNANDEZ [facility] 04/19/23 Ergocalciferol (VITAMIN D 02041 UNIT) 50,000 [place], [address] UNIT PO Q7D for 10 Days, #10 CAP Prov:STEPHANIE HERNANDEZ [facility] 04/19/23 Cyanocobalamin (Gnp Vitamin B12) 500 Mcg Tab, 1000 MCG PO DAILY for 30 Days, #60 TAB Prov:STEPHANIE HERNANDEZ [facility] 04/19/23 Ascorbic Acid (VITAMIN C TABLET) 500 Mg Tb, 500 MG PO BID for 30 Days, #60 TAB Prov:STEPHANIE HERNANDEZ 04/19/23 Acetaminophen (Acetaminophen) 325 Mg Tab, 650 MG PO Q6HP PRN for 30 Days, #240 T AB Prov:STEPHANIE HERNANDEZ 04/19/23 Hydrocodone-Acetaminophen (Hydrocodone Bitartrate/AC 5-325 mg) 1 Tab Tab, 1 TAB PO QID PRN, #60 TAB Prov:TAWANA SAMANO MD 02/10/23 Reported Medications Quetiapine Fumerate (QUETIAPINE FUMARATE) 400 Mg Tab, 2 TAB PO HS 01/02/23 Ibuprofen Micronized (Ibuprofen) 800 Mg Tab, 1 TAB PO Q8HPRN PRN for pain 01/02/23 Albuterol Sulfate (Ventolin) 2.5 Mg/3 Ml Nb, 2.5 MG INH Q6HP, INH 11/18/22 Simvastatin (Simvastatin) 40 Mg Tab, 40 MG PO DAILY for 30 Days 11/18/22 Sertraline Hcl (Zoloft) 100 Mg Tab, 200 MG PO DAILY, TAB 11/18/22 Review of systems Review of Systems: MSK:Abnormal (prior CORDELL, ingections- back pain gone suddenly 2 weeks ago), NEURO:Abnormal (decreased sensation shoulers to fingers and hips to feet) Examination Vital signs Vital Signs Date Time Temp Pulse Resp B/P (MAP) Pulse Ox O2 Delivery O2 Flow Rate FiO2 11/16/24 09:00 97.7 82 18 118/76 (90) 97 97.7 11/16/24 08:00 Room Air* 0 21 Imaging:ORDERING PHYSICIAN: JOSE LOPEZ MD PROCEDURE(s): MNE - CERVICAL WO CONTRAST REASON: Syringomyelia, cervical spine myelopathy ORDER NUMBER(s): [id number], ACCESSION NUMBER(s): [id number] CLINICAL INFORMATION: Syringomyelia, cervical spine myelopathy. TECHNIQUE: Multisequence multiplanar MRI images of the cervical spine were obtained without contrast. COMPARISON: None FINDINGS: Bones: Straightening of the normal cervical lordosis. No significant spondylolisthesis. Vertebral body heights are maintained. Posterior elements are intact. No acute fracture. No focal suspicious marrow signal abnormality. Spinal cord: There is t2/stir hyperintense signal in the spinal cord at the C3- C4 level, associated with spinal canal stenosis at this level and extending up to 4 cm in proximal to distal dimension involving the C3-C5 levels, likely due to myelopathy associated with the spinal canal stenosis at C3-C4 described below. Paraspinal soft tissues: Paraspinal and prevertebral soft tissues are unremarkable. Other: No other significant findings. Cervical disc levels: C2-C3: Disc desiccation. Mild disc bulge mildly flattening the ventral aspect of the thecal sac. There is a [id number]-smtzgyvx degree of congenital spinal canal stenosis. Facet and uncinate hypertrophy with moderate to severe left and mild right neural foraminal stenoses. C3-C4: Disc desiccation with mild disc space narrowing and diffuse disc bulge superimposed on congenital spinal canal narrowing causing moderate to severe spinal canal stenosis, abutting the ventral aspect of the spinal cord, with concomitant infolding of the ligamentum flavum indenting the posterior aspect of the spinal cord. There is associated t2/stir hyperintense signal in the spinal cord consistent with myelopathy in the appropriate clinical setting as described above. There is effacement of the lateral recesses. Facet and uncinate hypertrophy with severe left and moderate to severe right neural foraminal stenoses. C4-C5: Disc desiccation. Diffuse disc bulge mildly indenting the ventral aspect of the thecal sac, superimposed on congenital spinal canal narrowing, with [id number] spinal canal stenosis and mild partial effacement of the lateral recesses. Facet and uncinate hypertrophy with moderate right and vpmw-sx-bycetold left neural foraminal stenoses. C5-C6: Disc desiccation with mild disc bulge mildly indenting the ventral aspect of the thecal sac. There is congenital spinal canal narrowing, with hxqp-[id number] spinal canal stenosis. Facet and uncinate hypertrophy with mmyo-et-bixrvxro right neural foraminal stenosis. C6-C7: Disc desiccation with mild disc space narrowing and diffuse disc bulge superimposed on congenital spinal canal narrowing, causing moderate spinal canal stenosis and partial effacement of the lateral recesses. Facet and uncinate hypertrophy with pbef-rp-epigqlzk bilateral neural foraminal stenoses. C7-T1: Disc desiccation. No significant spinal canal or neural foraminal stenosis. IMPRESSION: 4. Additional findings as described above. RING PHYSICIAN: JOSE LOPEZ MD PROCEDURE(s): MST4 - THORACIC SPINE WITHOUT REASON: Syringomyelia ORDER NUMBER(s): [id number], ACCESSION NUMBER(s): [id number] CLINICAL HISTORY: 64 years old, Male; Syringomyelia. TECHNIQUE: Multi sequence multi planar MRI images of the thoracic spine were obtained without IV contrast. COMPARISON: No prior imaging of the thoracic spine was available for comparison at the time of dictation. FINDINGS: Vertebral body alignment is within normal limits. Vertebral body heights are maintained. Posterior elements are intact. No evidence of acute fracture. Multilevel disc desiccation throughout the thoracic spine with areas of moderate disc space narrowing. Prominent Modic type 2 endplate changes at T5- T6. No focal suspicious marrow signal abnormality. Spinal cord is normal in signal intensity and morphology. No syrinx in the thoracic spinal cord. Paraspinal soft tissues are unremarkable. Thoracic disc levels: T1-T2: Disc desiccation. No significant spinal canal or neural foraminal stenosis. T2-T3: Disc desiccation with moderate disc space narrowing and central disc protrusion. Mild spinal canal stenosis. Facet hypertrophy with mild bilateral neural foraminal stenoses. T3-T4: Moderate disc space narrowing with diffuse disc bulge mildly indenting the ventral aspect of the thecal sac, causing mild spinal canal stenosis. Facet hypertrophy with vzgl-jt-smbgxlma bilateral neural foraminal stenoses. T4-T5: Moderate disc space narrowing. Diffuse disc bulge mildly indenting the ventral aspect of the thecal sac, causing mild spinal canal stenosis. Facet hypertrophy with mild bilateral neural foraminal stenoses. T5-T6: Disc desiccation with moderate to severe disc space narrowing. Diffuse disc bulge causing mild spinal canal stenosis. Facet hypertrophy with moderate bilateral neural foraminal stenoses. T6-T7: Disc desiccation with mild disc space narrowing and diffuse disc bulge mildly flattening the ventral aspect of the thecal sac. No significant spinal canal stenosis or neural foraminal stenosis. T7-T8: Disc desiccation with mild to moderate disc space narrowing. No significant spinal canal or neural foraminal stenosis. T8-T9: Disc desiccation with mild disc space narrowing. Mild disc bulge mildly indenting the ventral aspect of the thecal sac. Mild spinal canal stenosis. Facet hypertrophy with moderate bilateral neural foraminal stenoses. T9-T10: Mild disc space narrowing with diffuse disc bulge causing mild spinal canal stenosis. Facet hypertrophy with moderate bilateral neural foraminal steno ses, right greater than left. T10-T11: Disc desiccation. No significant spinal canal stenosis. Facet hypertrophy with moderate bilateral neural foraminal stenoses. T11-T12: Disc desiccation. No significant spinal canal or neural foraminal stenosis. T12-L1: Disc desiccation with no significant spinal canal or neural foraminal stenosis. IMPRESSION: 1. Degenerative disc disease and facet disease in the thoracic spine with associated spinal canal and neural foraminal stenoses as detailed above. 2. Prominent Modic type 2 endplate changes at T5-T6. 3. No signal abnormality in the spinal cord. 4. Additional findings as described above. Laboratory Labs Test 11/15/24 23:46 11/15/24 05:40 11/14/24 16:30 11/14/24 04:51 Range/Units Hemoglobin A1c 5.6 <5.7 % A1C White Blood Count 5.6 4.4-10.8 10^3/uL Red Blood Count 3.82 L 4.5-5.90 10^6/uL Hemoglobin 13.0 L 13.5-17.5 g/dL Hematocrit 36.6 L 41.0-53.0 % Mean Corpuscular Volume 95.8 80.0-100.0 fL Mean Corpuscular Hemoglobin 33.9 H 28.0-32.0 pg Mean Corpuscular Hemoglobin Concent 35.4 32.0-36.0 g/dL Red Cell Distribution Width 12.9 11.8-14.3 % Platelet Count 191 140-450 10^3/uL Mean Platelet Volume 7.6 6.9-10.8 fL Neutrophils (%) (Auto) 56.1 37.0-80.0 % Lymphocytes (%) (Auto) 25.7 10.0-50.0 % Monocytes (%) (Auto) 11.3 0.0-12.0 % Eosinophils (%) (Auto) 6.4 0.0-7.0 % Basophils (%) (Auto) 0.5 0.0-2.0 % Neutrophils # (Auto) 3.2 1.6-8.6 10 ^3/uL Lymphocytes # (Auto) 1.4 0.4-5.4 10 ^3/uL Monocytes # (Auto) 0.6 0-1.3 10 ^3/uL Eosinophils # (Auto) 0.4 0-0.8 10 ^3/uL Basophils # (Auto) 0 0-0.2 10 ^3/uL Nucleated Red Blood Cells 0.0 % Sodium Level 146 H 136-145 mmol/L Potassium Level 3.9 3.5-5.1 mmol/L Chloride Level 115 H 98-107 mmol/L Carbon Dioxide Level 25 20-31 mmol/L Anion Gap 6 5-15 Blood Urea Nitrogen 12 9-23 mg/dL Creatinine 1.02 0.700-1.30 mg/dL Glomerular Filtration Rate Calc 83 >90 mL/min BUN/Creatinine Ratio 11.8 10.0-20.0 Serum Glucose 101 74-106 mg/dL Calcium Level 9.1 8.7-10.4 mg/dL Total Bilirubin 0.3 0.2-1.0 mg/dL Aspartate Amino Transferase (AST) 18 13-40 U/L Alanine Aminotransferase (ALT) 17 7-40 U/L Alkaline Phosphatase 54 46-116 U/L Total Protein 6.5 5.7-8.2 g/dL Albumin 4.0 3.2-4.8 g/dL Influenza Type A Antigen Negative Negative Influenza Type B Antigen Negative Negative SARS-CoV-2 Antigen (Rapid) Negative NEGATIVE Thyroid Stimulating Hormone (TSH) 3.51 0.55-4.78 uIU/mL Plasma/Serum Blood Alcohol < 3.0 <10 mg/dL Test 11/13/24 21:43 11/13/24 21:17 Range/Units Magnesium Level 2.1 1.6-2.6 mg/dL Urine Color Colorless Yellow Urine Clarity Clear Clear Urine pH 6.5 5.0-9.0 Urine Specific [place] 1.005 1.001-1.035 Urine Protein Negative Negative Urine Ketones Negative Negative Urine Blood Negative Negative /uL Urine Nitrite Negative Negative Urine Bilirubin Negative Negative Urine Urobilinogen Normal Negative mg/dL Urine Leukocyte Esterase Negative Negative /uL Urine RBC <1 0 - 3 /hpf Urine Microscopic WBC < 1 0-3 /HPF Urine Squamous Epithelial Cells None seen <5 /hpf Urine Bacteria None seen None Seen /hpf Urine Glucose Normal Normal mg/dL Urine Opiates Screen Neg NEGATIVE Urine Fentanyl Screen Neg NEGATIVE Urine Barbiturates Screen Neg NEGATIVE Urine Phencyclidine Screen Neg NEGATIVE Urine Amphetamines Screen Neg NEGATIVE Urine Benzodiazepines Screen Neg NEGATIVE Urine Cocaine Screen Neg NEGATIVE Urine Cannabinoids Screen Pos NEGATIVE Examination: GENERAL:Normal, HEENT:Normal, NECK:Abnormal (Pain with ROM, sharp stabbing), LUNGS:Normal, CVS:Normal, ABDOMEN:Normal, MSK:Normal, SKIN:Normal, NEURO:Abnormal (julius LLE weakness ans right arm/hand weakness), :Normal Problem List/Assessment/Plan Problems: (1) Cervical stenosis of spinal canal (2) Muscle spasm of back (3) Muscle spasms of neck Assessment and Plan 1. Degenerative disc disease and facet/ uncinate disease in the cervical spine with associated spinal canal, subarticular, and neural foraminal stenoses as detailed above. 2. There is a degree of congenital spinal canal narrowing contributing to the spinal canal stenoses. 3. T2/stir hyperintense signal in the spinal cord extending from the C3-C5 levels consistent with myelopathy secondary to the spinal canal stenosis at C3- C4. 4. Degenerative disc disease and facet disease in the thoracic spine with associated spinal canal and neural foraminal stenoses as detailed above. 5. Prominent Modic type 2 endplate changes at T5-T6. Further care and support for admitting team's discretion Discussed treatment options starting with conservative all the way up to surgical management with patient and his family, physical therapy has failed the patient in the past and patient is agreeable to proceed with surgery, supported by family. Patient has a good support system. Plan surgery for November 19 at 1100 hours, pending cardiac and medical clearance Call with questions Katerina Mann [facility]- Orthopaedic Spine Surgery nurse practitioner For Dr Kristin Wilson Patient was examined, chart reviewed, labs evaluated, and diagnostic studies and findings analyzed. Case was discussed with Dr. Ambrocio Wilson who formulated the plan of care. This medical document was created using an electronic medical record system with [employer] dictation system. Although this document has been carefully reviewed, there might still be some phonetic and typographical errors. These areas are purely typographical due to imperfections of the software programs, and do not reflect any compromise in the patient's medical care. Plan discussed with Plan discussed with: Patient, Other YUNIEL MANN NP Nov 16, 2024 13:24
[2024-11-17] VITALS (12 sets, daily range): BP systolic 103–137; BP diastolic 66–81; PULSE 77–105; RESP 16–18; TEMP 97.8–99; O2SAT 95–100
[2024-11-17] MEDS: HYDROcodone-ACET 5/325MG TAB PO PRN (10:31)
--- NOTE | 2024-11-17 13:32 | DVHPN2 ---
Reviewed: Care Plan, H&P, Labs, Medications, Previous Orders, Radiology Changes from previous H/P or p: No Changes Eyes: No Pain, No Vision change, No Conjunctivae inflammation, No Eyelid inflammation, No Other, No Redness ENT: No Ear pain, No Ear discharge, No Nose pain, No Nose discharge, No Nose congestion, No Mouth pain, No Mouth swelling, No Throat pain, No Throat swelling, No Other Cardiovascular: No Chest Pain, No Palpitations, No Orthopnea, No Paroxysmal Noc. Dyspnea, No Edema, No Lt Headedness, No Other Respiratory: No Cough, No Dry, No Shortness of breath, No SOB with excertion, No Wheezing, No Hemoptysis, No Pleuritic Pain, No Sputum, No Other Gastrointestinal: No Nausea, No Vomiting, No Abdominal Pain, No Diarrhea, No Constipation, No Melena, No Hematochezia, No Other Genitourinary: No Dysuria, No Frequency, No Incontinence, No Hematuria, No Retention, No Other Musculoskeletal: No other, No neck pain, No shoulder pain, No arm pain, No back pain, No hand pain, No leg pain, No foot pain Skin: No Rash, No Lesions, No Jaundice, No Bruising, No Other Objective Vitals Vital Signs Date Time Temp Pulse Resp B/P (MAP) Pulse Ox O2 Delivery O2 Flow Rate FiO2 11/17/24 13:00 98.1 80 16 112/81 (91) 96 98.1 11/17/24 08:23 Room Air 11/17/24 08:23 0 21 Intake/Output Intake and Output 11/17/24 07:00 Intake Total 1090 ml Output Total 1600 ml Balance -510 ml Intake Oral 1090 ml Output Urine Total 1600 ml # Bowel Movements 1 Medications Current Medications Medications Dose Ordered Sig/Maisha Route Start Time Stop Time Status Last Admin Dose Admin Albuterol 2.5 mg Q4HPRN PRN NEB 11/14/24 04:30 11/17/24 08:23 2.5 MG Ipratropium Rowe 0.5 mg Q4HPRN PRN NEB 11/14/24 04:30 11/17/24 08:23 0.5 MG Sertraline HCl 100 mg DAILY PO 11/14/24 10:00 11/17/24 10:30 100 MG Quetiapine Fumarate 200 mg HS PO 11/14/24 22:00 11/16/24 21:02 200 MG Atorvastatin Calcium 40 mg HS PO 11/14/24 22:00 11/16/24 21:02 40 MG Famotidine 20 mg Q12HR IV 11/14/24 10:00 11/17/24 10:29 20 MG Sodium Chloride 10 ml Q8HR IV 11/14/24 06:00 11/17/24 06:01 10 ML Acetaminophen/ Hydrocodone Bitart 1 tab Q4HP PRN PO 11/14/24 04:30 11/17/24 10:31 1 TAB Ondansetron HCl 4 mg Q4HP PRN IV 11/14/24 04:30 Docusate Sodium 100 mg BIDPRN PRN PO 11/14/24 04:30 Ascorbic Acid 500 mg BID PO 11/14/24 10:00 11/17/24 10:29 500 MG Multivitamins 1 tab DAILY PO 11/14/24 10:00 11/17/24 10:29 1 TAB Acetaminophen 650 mg Q6HP PRN PO 11/14/24 04:30 Nitroglycerin 0.4 mg Q5MINP PRN SL 11/14/24 05:15 Morphine Sulfate 2 mg Q30M PRN IV 11/14/24 05:15 Laboratory Results Laboratory Tests 11/15/24 05:40 Urinalysis Test 11/13/24 21:17 Urine Color Colorless (Yellow) Urine Clarity Clear (Clear) Urine pH 6.5 (5.0-9.0) Urine Specific [place] 1.005 (1.001-1.035) Urine Protein Negative (Negative) Urine Ketones Negative (Negative) Urine Blood Negative /uL (Negative) Urine Nitrite Negative (Negative) Urine Bilirubin Negative (Negative) Urine Urobilinogen Normal mg/dL (Negative) Urine Leukocyte Esterase Negative /uL (Negative) Urine RBC <1 /hpf (0 - 3) Urine Microscopic WBC < 1 /HPF (0-3) Urine Squamous Epithelial Cells None seen /hpf (<5) Urine Bacteria None seen /hpf (None Seen) Urine Glucose Normal mg/dL (Normal) Labs and/or images reviewed: Labs reviewed by me, Image(s) reviewed by me Assessment/Plan Assessment/Plan Acute generalized weakness 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 Rodriguez appreciated, Chronic current marijuana abuse: Counseling Time spent 50 minutes Advanced care planning time 20 minutes Patient is full code Plan discussed with: Patient Date of Service: Nov 17, 2024 Billing Provider: TAWANA SAMANO MD Common Visit Codes: [id number] INP/OBS CARE(HIGH) TAWANA SAMANO MD Nov 17, 2024 13:32
--- NOTE | 2024-11-17 23:32 | DVHPN2 ---
Progress Note - Dictate Date Seen: Nov 17, 2024 Medical Necessity Reason Pt with a Central, PICC or Fol: No Subjective Mr. Harrison is a 64 years old left-handed gentleman with a history of asthma, COPD, arthritis, schizophrenia, he came to the [facility] on 11/13/2024 with a chief complaint of general weakness and gait disturbance. I have seen and examined the patient, along with his sitter and nurse. He is alert and fully oriented, no new complaints Per nurse report, the cervical spine surgery is scheduled next Friday Urinalysis, 11/13/2024: Unremarkable UDS, 11/13/2024: Cannabinoids Plasma alcohol, 11/14/2024: <3 WBC/HB/PLT/MCV, 11/15/2024: 5.6/13/191/95.8 Sodium, 11/13/2024: 146, 11/14/2024: 146, 11/15/2024: 146 HbA1c 11/15/2024: 5.6 Liver function tests, 11/13/2024: Unremarkable TG/HDL/LDL/HDL, 04/2023: 99/150/99/43 Vitamin B12, 04/2023:410 TSH, 11/14/2024: 3.51 MRI head, 11/15/2024: No acute infarct, intracranial hemorrhage, mass effect, or hydrocephalus. MRI C-spine, 11/16/2024: 1. Degenerative disc disease and facet/ uncinate disease in the cervical spine with associated spinal canal, subarticular, and neural foraminal stenoses as detailed above. 2. There is a degree of congenital spinal canal narrowing contributing to the spinal canal stenoses. 3. T2/stir hyperintense signal in the spinal cord extending from the C3-C5 levels consistent with myelopathy secondary to the spinal canal stenosis at C3-C4. 4. Additional findings as described above MRI T-spine, 11/16/2024: 1. Degenerative disc disease and facet disease in the thoracic spine with associated spinal canal and neural foraminal stenoses as detailed above. 2. Prominent Modic type 2 endplate changes at T5-T6. 3. No signal abnormality in the spinal cord. 4. Additional findings as described above. vital signs Vital Sign Date Time Temp Pulse Resp B/P (MAP) Pulse Ox O2 Delivery O2 Flow Rate FiO2 11/17/24 21:00 99.0 80 18 126/75 (92) 95 99.0 11/17/24 20:10 Room Air* 0 21 Total Intake and Output 11/16/24 11/16/24 11/17/24 15:00 23:00 07:00 Intake Total 440 ml 650 ml Output Total 900 ml 700 ml Balance 440 ml -900 ml -50 ml medications Current Medications Medications Dose Ordered Sig/Maisha Route Start Time Stop Time Status Last Admin Dose Admin Albuterol 2.5 mg Q4HPRN PRN NEB 11/14/24 04:30 11/17/24 18:00 2.5 MG Ipratropium [place] 0.5 mg Q4HPRN PRN NEB 11/14/24 04:30 11/17/24 18:00 0.5 MG Sertraline HCl 100 mg DAILY PO 11/14/24 10:00 11/17/24 10:30 100 MG Quetiapine Fumarate 200 mg HS PO 11/14/24 22:00 11/17/24 22:05 200 MG Atorvastatin Calcium 40 mg HS PO 11/14/24 22:00 11/17/24 22:05 40 MG Famotidine 20 mg Q12HR IV 11/14/24 10:00 11/17/24 22:05 20 MG Sodium Chloride 10 ml Q8HR IV 11/14/24 06:00 11/17/24 22:05 10 ML Acetaminophen/ Hydrocodone Bitart 1 tab Q4HP PRN PO 11/14/24 04:30 11/17/24 10:31 1 TAB Ondansetron HCl 4 mg Q4HP PRN IV 11/14/24 04:30 Docusate Sodium 100 mg BIDPRN PRN PO 11/14/24 04:30 Ascorbic Acid 500 mg BID PO 11/14/24 10:00 11/17/24 22:05 500 MG Multivitamins 1 tab DAILY PO 11/14/24 10:00 11/17/24 10:29 1 TAB Acetaminophen 650 mg Q6HP PRN PO 11/14/24 04:30 Nitroglycerin 0.4 mg Q5MINP PRN SL 11/14/24 05:15 Morphine Sulfate 2 mg Q30M PRN IV 11/14/24 05:15 objective General: the patient is well developed and nourished. No acute distress. MUSCULOSKELETAL EXAM: No tenderness to palpation in the whole spine MENTAL STATUS: Subjective SPEECH, LANGUAGE, HIGHER CORTICAL FUNCTION: no aphasia or dysathria. CRANIAL NERVES: Pupils are equal, round and reactive. EOMs full and conjugate. Mild bilateral gaze evoked nystagmus. Facial sensation intact in all three divisions bilaterally. Mandibular strength intact. Facial muscles symmetrical and strength intact. Tongue midline. No fasciculations or atrophy. SENSATION: Sensation to touch and pinprick is diminished in the lower extremities below the hip, upper extremity below the shoulder, there is a questionable sensory dermatomes in Rt: T6-&7, Lt: T5-T6 MOTOR: Normal tone in the upper and lower extremity. Normal muscle bulk. No fasciculations. No abnormal movements or posturing. Muscle strength of the major groups in the upper extremities is 4/5. Muscle strength of the major groups in the lower extremities is 4/5. REFLEXES: Deep tendon reflexes are symmetrical, 2/4. No pathological reflexes. CEREBELLAR/COORDINATION: Finger to nose is normal bilaterally. GAIT/STATION: deferred. 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 Although this document has been carefully reviewed, there may still be some phonetic and typographical errors. These areas are purely typographical due to imperfections of the software programs, and do not reflect any compromise in the patient's medical care. Prognosis poor Dietary Evaluation Review Comments: Monitor and encourage PO feeding to meet at least 75% of his needs Offer Ensure HP 240ml PO BID if intake <75% Offer Kraig BID for wound healing Expected Outcomes/Goals: prevent wt loss, healed wounds Plan discussed with: Other JOSE LOPEZ MD Nov 17, 2024 23:32
[2024-11-18] VITALS (11 sets, daily range): BP systolic 102–124; BP diastolic 62–84; PULSE 70–90; RESP 16–20; TEMP 97.5–99.1; O2SAT 93–100
--- NOTE | 2024-11-18 09:21 | DVHPN2 ---
Reviewed: Care Plan, H&P, Labs, Medications, Previous Orders, Radiology Changes from previous H/P or p: No Changes Eyes: No Pain, No Vision change, No Conjunctivae inflammation, No Eyelid inflammation, No Other, No Redness ENT: No Ear pain, No Ear discharge, No Nose pain, No Nose discharge, No Nose congestion, No Mouth pain, No Mouth swelling, No Throat pain, No Throat swelling, No Other Cardiovascular: No Chest Pain, No Palpitations, No Orthopnea, No Paroxysmal Noc. Dyspnea, No Edema, No Lt Headedness, No Other Respiratory: No Cough, No Dry, No Shortness of breath, No SOB with excertion, No Wheezing, No Hemoptysis, No Pleuritic Pain, No Sputum, No Other Gastrointestinal: No Nausea, No Vomiting, No Abdominal Pain, No Diarrhea, No Constipation, No Melena, No Hematochezia, No Other Genitourinary: No Dysuria, No Frequency, No Incontinence, No Hematuria, No Retention, No Other Musculoskeletal: No other, No neck pain, No shoulder pain, No arm pain, No back pain, No hand pain, No leg pain, No foot pain Skin: No Rash, No Lesions, No Jaundice, No Bruising, No Other Objective Vitals Vital Signs Date Time Temp Pulse Resp B/P (MAP) Pulse Ox O2 Delivery O2 Flow Rate FiO2 11/18/24 09:02 98.7 90 20 102/68 (79) 94 98.7 11/18/24 06:09 Room Air* 0 21 Intake/Output Intake and Output 11/18/24 07:00 Intake Total 1140 ml Output Total 1050 ml Balance 90 ml Intake Oral 1140 ml Output Urine Total 1050 ml # Voids 1 # Bowel Movements 2 Medications Current Medications Medications Dose Ordered Sig/Maisha Route Start Time Stop Time Status Last Admin Dose Admin Albuterol 2.5 mg Q4HPRN PRN NEB 11/14/24 04:30 11/17/24 18:00 2.5 MG Ipratropium [place] 0.5 mg Q4HPRN PRN NEB 11/14/24 04:30 11/17/24 18:00 0.5 MG Sertraline HCl 100 mg DAILY PO 11/14/24 10:00 11/17/24 10:30 100 MG Quetiapine Fumarate 200 mg HS PO 11/14/24 22:00 11/17/24 22:05 200 MG Atorvastatin Calcium 40 mg HS PO 11/14/24 22:00 11/17/24 22:05 40 MG Famotidine 20 mg Q12HR IV 11/14/24 10:00 11/17/24 22:05 20 MG Sodium Chloride 10 ml Q8HR IV 11/14/24 06:00 11/18/24 06:00 10 ML Acetaminophen/ Hydrocodone Bitart 1 tab Q4HP PRN PO 11/14/24 04:30 11/18/24 07:56 1 TAB Ondansetron HCl 4 mg Q4HP PRN IV 11/14/24 04:30 Docusate Sodium 100 mg BIDPRN PRN PO 11/14/24 04:30 Ascorbic Acid 500 mg BID PO 11/14/24 10:00 11/17/24 22:05 500 MG Multivitamins 1 tab DAILY PO 11/14/24 10:00 11/17/24 10:29 1 TAB Acetaminophen 650 mg Q6HP PRN PO 11/14/24 04:30 Nitroglycerin 0.4 mg Q5MINP PRN SL 11/14/24 05:15 Morphine Sulfate 2 mg Q30M PRN IV 11/14/24 05:15 Laboratory Results Laboratory Tests 11/15/24 05:40 Urinalysis Test 11/13/24 21:17 Urine Color Colorless (Yellow) Urine Clarity Clear (Clear) Urine pH 6.5 (5.0-9.0) Urine Specific [place] 1.005 (1.001-1.035) Urine Protein Negative (Negative) Urine Ketones Negative (Negative) Urine Blood Negative /uL (Negative) Urine Nitrite Negative (Negative) Urine Bilirubin Negative (Negative) Urine Urobilinogen Normal mg/dL (Negative) Urine Leukocyte Esterase Negative /uL (Negative) Urine RBC <1 /hpf (0 - 3) Urine Microscopic WBC < 1 /HPF (0-3) Urine Squamous Epithelial Cells None seen /hpf (<5) Urine Bacteria None seen /hpf (None Seen) Urine Glucose Normal mg/dL (Normal) Labs and/or images reviewed: Labs reviewed by me, Image(s) reviewed by me Assessment/Plan Assessment/Plan Acute generalized weakness 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 Wilks for cardiac clearance Hypoesthesia bilateral upper and lower extremities secondary to C-spine myelopathy C-spine and T-spine syringomyelia Acute hypokalemia: Replace potassium History of asthma Acute COPD exacerbation Schizophrenia Depression Hypercholesterolemia Kelsey test negative Flu test negative A1c normal Unsteady gait: MRI brain negative, Neurology consult for Dr. Rodriguez appreciated, Chronic current marijuana abuse: Counseling Time spent 50 minutes Advanced care planning time 20 minutes Patient is full code Plan discussed with: Patient My Orders Orders - TAWANA SAMANO MD Procedure Category Date Status Time * Orthopedic Consult CONS 11/17/24 Transmitted 13:26 * Cardiology Consult CONS 11/18/24 Verified 09:16 Date of Service: Nov 18, 2024 Billing Provider: TAWANA SAMANO MD Common Visit Codes: [id number] INP/OBS CARE(HIGH) TAWANA SAMANO MD Nov 18, 2024 09:21
[2024-11-18 11:27] LABS: Potassium 4.2 mmol/L (3.5-5.1); Sodium 143 mmol/L (136-145)
[2024-11-18 11:28] LABS: Anion Gap 7 (5-15); Calcium 9.2 mg/dL (8.7-10.4); Carbon Dioxide 25 mmol/L (20-31)
[2024-11-18 11:29] LABS: Chloride 111 mmol/L (98-107)
[2024-11-18 11:32] LABS: Hematocrit 39.0 % (41.0-53.0); Hemoglobin 13.5 g/dL (13.5-17.5); Mean Corpuscular Hemoglobin 33.4 pg (28.0-32.0); Mean Corpuscular Volume 96.7 fL (80.0-100.0); Nucleated Red Blood Cells % 0.1 %
[2024-11-18 11:33] LABS: BUN/Creatinine Ratio 19.0 (10.0-20.0); Blood Urea Nitrogen 20 mg/dL (9-23); Triglycerides 69 mg/dL (< 150)
[2024-11-18 11:35] LABS: Cholesterol 117 mg/dL (< 200)
[2024-11-18 11:38] LABS: Glucose 119 mg/dL (74-106); HDL Cholesterol 27 mg/dL (40-59)
--- NOTE | 2024-11-18 12:25 | DVHINCON2 ---
Date Seen: Nov 18, 2024 Referring Physician MD Luis Reason for Consultation Cardiac risk stratification History of Present Illness This is a 64-year-old male patient who presents to the emergency room with chief complaint of generalized weakness for 2 and a half months. The patient reports progressive generalized weakness which prompted him to come to the emergency room for further evaluation. Imaging upon this admission has revealed cervical stenosis of the spinal canal. Orthopedic team requesting cardiac risk stratification for possible procedure. Initial twelve lead electrocardiogram reveals normal sinus rhythm without any significant ST segment changes. The patient denies any cardiac symptoms. Significant past medical history includes dyslipidemia, COPD, marijuana use, alcohol use anxiety, and depression. He denies any cardiac history. Past Medical History Past medical history reviewed. No other significant than mentioned above. Past Surgical History Right ankle ORIF Family History: FH: cancer G8 FATHER Family History Family history reviewed. Social History The patient denies any tobacco use Admits to occasional marijuana use Admits to drinking approximately six beers per week Allergies: Coded Allergies: NO KNOWN ALLERGIES (Unverified , 11/17/22) Home Meds Active Scripts Rifampin (Rifampin) 300 Mg Cap, 300 MG PO BIDPC for 45 Days, #90 CAP Prov:STEPHANIE HERNANDEZ [facility] 04/19/23 Pantoprazole Sodium Sesquihydr (Pantoprazole Sodium) 40 Mg Tab, 40 MG PO DAILY for 30 Days, #30 TAB Prov:STEPHANIE HERNANDEZ [facility] 04/19/23 Multiple Vitamin (Mvi Tab) 1 Tab Tb, 1 TAB PO DAILY for 30 Days, #30 TAB Prov:STEPHANIE HERNANDEZ [facility] 04/19/23 Ergocalciferol (VITAMIN D 37186 UNIT) 50,000 [place], [address] UNIT PO Q7D for 10 Days, #10 CAP Prov:STEPHANIE HERNANDEZ [facility] 04/19/23 Cyanocobalamin (Gnp Vitamin B12) 500 Mcg Tab, 1000 MCG PO DAILY for 30 Days, #60 TAB Prov:STEPHANIE HERNANDEZ [facility] 04/19/23 Ascorbic Acid (VITAMIN C TABLET) 500 Mg Tb, 500 MG PO BID for 30 Days, #60 TAB Prov:STEPHANIE HERNANDEZ [facility] 04/19/23 Acetaminophen (Acetaminophen) 325 Mg Tab, 650 MG PO Q6HP PRN for 30 Days, #240 TAB Prov:STEPHANIE HERNANDEZ [facility] 04/19/23 Hydrocodone-Acetaminophen (Hydrocodone Bitartrate/AC 5-325 mg) 1 Tab Tab, 1 TAB PO QID PRN, #60 TAB Prov:TAWANA SAMANO MD 02/10/23 Reported Medications Quetiapine Fumerate (QUETIAPINE FUMARATE) 400 Mg Tab, 2 TAB PO HS 01/02/23 Ibuprofen Micronized (Ibuprofen) 800 Mg Tab, 1 TAB PO Q8HPRN PRN for pain 01/02/23 Albuterol Sulfate (Ventolin) 2.5 Mg/3 Ml Nb, 2.5 MG INH Q6HP, INH 11/18/22 Simvastatin (Simvastatin) 40 Mg Tab, 40 MG PO DAILY for 30 Days 11/18/22 Sertraline Hcl (Zoloft) 100 Mg Tab, 200 MG PO DAILY, TAB 11/18/22 Home Meds Home medications reviewed. Review of Systems Constitutional: Generalized weakness Ears, Nose, & Throat: No symptom reported Eyes: No symptom reported Neurological: No symptoms reported Pulmonary/Respiratory: No symptoms reported Cardiovascular: No symptom reported Gastrointestinal: No symptom reported Genitourinary: No symptom reported Musculoskeletal: No symptom reported Skin: No symptom reported Psychiatric: No symptom reported Endocrine: No symptom reported Hematologic/Lymphatic: No symptom reported Vital Signs Vital Signs Date Time Temp Pulse Resp B/P (MAP) Pulse Ox O2 Delivery O2 Flow Rate FiO2 11/18/24 09:02 98.7 90 20 102/68 (79) 94 98.7 11/18/24 06:09 Room Air* 0 21 Physical Exam General Appearance: Cooperative. Well-developed. Well-nourished. No acute distress. Pulmonary/Respiratory: Clear, bilateral breaths sounds. Cardiovascular/Chest: Regular rate and rhythm. Peripheral Pulses: 2+ Radial (R). 2+ Radial (L). 2+ Pedal (R). 2+ Pedal (L) Abdominal Exam: Normal bowel sounds. Ankle Exam: Negative ankle edema Lower extremities: Negative lower extremity edema Neuro/Mental Status: A/OX4, coherent. Thoughts/Psych: Normal thought pattern. Appropriate mood and affect. Good judgment and insight. Appearance: No acute distress. Skin Exam: Normal inspection. Normal color. Warm and dry. Labs/Diagnostic Data Labs Test 11/18/24 10:49 11/15/24 23:46 11/15/24 05:40 11/14/24 16:30 Range/Units White Blood Count 5.7 4.4-10.8 10^3/uL Red Blood Count 4.04 L 4.5-5.90 10^6/uL Hemoglobin 13.5 13.5-17.5 g/dL Hematocrit 39.0 L 41.0-53.0 % Mean Corpuscular Volume 96.7 80.0-100.0 fL Mean Corpuscular Hemoglobin 33.4 H 28.0-32.0 pg Mean Corpuscular Hemoglobin Concent 34.6 32.0-36.0 g/dL Red Cell Distribution Width 12.9 11.8-14.3 % Platelet Count 205 140-450 10^3/uL Mean Platelet Volume 7.8 6.9-10.8 fL Neutrophils (%) (Auto) 60.7 37.0-80.0 % Lymphocytes (%) (Auto) 24.1 10.0-50.0 % Monocytes (%) (Auto) 10.1 0.0-12.0 % Eosinophils (%) (Auto) 4.6 0.0-7.0 % Basophils (%) (Auto) 0.5 0.0-2.0 % Neutrophils # (Auto) 3.5 1.6-8.6 10 ^3/uL Lymphocytes # (Auto) 1.4 0.4-5.4 10 ^3/uL Monocytes # (Auto) 0.6 0-1.3 10 ^3/uL Eosinophils # (Auto) 0.3 0-0.8 10 ^3/uL Basophils # (Auto) 0 0-0.2 10 ^3/uL Nucleated Red Blood Cells 0.1 % Sodium Level 143 136-145 mmol/L Potassium Level 4.2 3.5-5.1 mmol/L Chloride Level 111 H 98-107 mmol/L Carbon Dioxide Level 25 20-31 mmol/L Anion Gap 7 5-15 Blood Urea Nitrogen 20 9-23 mg/dL Creatinine 1.05 0.700-1.30 mg/dL Glomerular Filtration Rate Calc 80 >90 mL/min BUN/Creatinine Ratio 19.0 10.0-20.0 Serum Glucose 119 H 74-106 mg/dL Calcium Level 9.2 8.7-10.4 mg/dL Triglycerides Level 69 < 150 mg/dL Cholesterol Level 117 < 200 mg/dL LDL Cholesterol 80 < 100 mg/dL HDL Cholesterol 27 L 40-59 mg/dL Hemoglobin A1c 5.6 <5.7 % A1C Total Bilirubin 0.3 0.2-1.0 mg/dL Aspartate Amino Transferase (AST) 18 13-40 U/L Alanine Aminotransferase (ALT) 17 7-40 U/L Alkaline Phosphatase 54 46-116 U/L Total Protein 6.5 5.7-8.2 g/dL Albumin 4.0 3.2-4.8 g/dL Influenza Type A Antigen Negative Negative Influenza Type B Antigen Negative Negative SARS-CoV-2 Antigen (Rapid) Negative NEGATIVE Test 11/14/24 04:51 11/13/24 21:43 11/13/24 21:17 Range/Units Thyroid Stimulating Hormone (TSH) 3.51 0.55-4.78 uIU/mL Plasma/Serum Blood Alcohol < 3.0 <10 mg/dL Magnesium Level 2.1 1.6-2.6 mg/dL Urine Color Colorless Yellow Urine Clarity Clear Clear Urine pH 6.5 5.0-9.0 Urine Specific [place] 1.005 1.001-1.035 Urine Protein Negative Negative Urine Ketones Negative Negative Urine Blood Negative Negative /uL Urine Nitrite Negative Negative Urine Bilirubin Negative Negative Urine Urobilinogen Normal Negative mg/dL Urine Leukocyte Esterase Negative Negative /uL Urine RBC <1 0 - 3 /hpf Urine Microscopic WBC < 1 0-3 /HPF Urine Squamous Epithelial Cells None seen <5 /hpf Urine Bacteria None seen None Seen /hpf Urine Glucose Normal Normal mg/dL Urine Opiates Screen Neg NEGATIVE Urine Fentanyl Screen Neg NEGATIVE Urine Barbiturates Screen Neg NEGATIVE Urine Phencyclidine Screen Neg NEGATIVE Urine Amphetamines Screen Neg NEGATIVE Urine Benzodiazepines Screen Neg NEGATIVE Urine Cocaine Screen Neg NEGATIVE Urine Cannabinoids Screen Pos NEGATIVE Assessment Preprocedural cardiovascular examination Dyslipidemia COPD Anxiety Depression Marijuana use Plan/Recommendation We will continue with the following plan/recommendations (Dr. Wilks): Patient seen and examined at bedside with . A transthoracic echocardiogram reveals an EF of 65% with no severe valve abnormalities. Revised cardiac risk index (Adan criteria): 0 points (0.5% risk of major cardiac event). There is no underlying history of congestive heart failure, coronary artery disease, equivalent of cardiac symptoms, and has a good functional capacity. Per cardiology standpoint, patient is at an acceptable-risk for moderate-risk surgery. There is no additional cardiac work-up indicated prior to surgery. Thank you for allowing us to participate in this patient's care. Please call if you have any questions or concerns. Critical care time spent: 44 minutes This medical document was created using an electronic medical record system with voice recognition software and computerized dictation system. Although this document has been carefully reviewed, there might still be some phonetic and typographical errors. Occasional wrong-word or ``sound-alike substitutions may have occurred due to the inherent limitations of voice recognition software. These areas are purely typographical due to imperfections of the software programs and do not reflect any compromise in the patient's medical care. Please read the chart carefully and recognize, using context, where these substitutions have occurred. Plan discussed with: Patient NYHA Physical activity limitations: NA Date of Service: Nov 18, 2024 Billing Provider: DANIEL HENDRICKSON Cardiology Common Codes: [id number] INP/OBS CARE (High) Cardiology Consultation Codes: [id number] CONSULT <45MIN DANIEL HENDRICKSON Nov 18, 2024 12:25
--- NOTE | 2024-11-18 14:31 | DVHSR ---
APPROVED REPORT EXAM: Two-dimensional and M-mode echocardiogram with Doppler and color Doppler. Blood Pressure: 102/68 mmHg INDICATION Pre-Op RISK FACTORS Height: 6', Weight: 186 DIMENSIONS LVDd4.9 (3.8-5.7cm)LA (2D)3.5 (1.9-4.0cm)Aortic Root3.7 (2.0-3.7cm) LVDs3.2 (2.5-4.0cm)LA (MM) (1.9-4.0cm)Aortic Cusp Exc1.6 (1.5-2.0cm) EF (%) 62.0 (55-70%)Rt. Atrium4.3 (1.9-4.0cm)Asc. Aorta3.2 cm IVSd1.1 (0.7-1.1cm)RV (D) (1.8-2.4cm) PWd1.0 (0.7-1.1cm) Mitral Valve MitralMitral Stenosis E wave0.47m/sMV Mean GR.mmHg A wave0.75m/sMV Peak GR.mmHg E/A ratio0.62D MVAcm2 DECEL [id number] 1/2 [place] Aortic Valve Aortic ValveAortic Stenosis V10.99m/Joanne Mean GR.3mmHg V21.17m/Joanne Peak GR.5mmHg LVOT Diameter2.2 (1.8-2.4cm)Doppler AVA3.21cm2 Pulmonic Valve V21.10m/s Conclusion lvef 65% normal rv function left atrium enlarged no severe valve abnormaliteis noted
[2024-11-19] VITALS (12 sets, daily range): BP systolic 105–137; BP diastolic 70–80; PULSE 72–96; RESP 10–19; TEMP 97.7–99.5; O2SAT 94–100
[2024-11-19 05:49] LABS: Hematocrit 39.1 % (41.0-53.0); Hemoglobin 13.7 g/dL (13.5-17.5); Mean Corpuscular Hemoglobin 33.7 pg (28.0-32.0); Mean Corpuscular Volume 95.7 fL (80.0-100.0); Nucleated Red Blood Cells % 0.0 %
[2024-11-19 06:01] LABS: Calcium 9.1 mg/dL (8.7-10.4); Potassium 3.9 mmol/L (3.5-5.1); Sodium 144 mmol/L (136-145)
[2024-11-19 06:02] LABS: Anion Gap 9 (5-15); Carbon Dioxide 23 mmol/L (20-31)
[2024-11-19 06:03] LABS: INR 1.18 (0.9-1.15); Partial Thromboplastin Time 28.0 SEC (24.5-34.5); Prothrombin Time 12.3 sec (9.3-11.8)
[2024-11-19 06:07] LABS: BUN/Creatinine Ratio 17.6 (10.0-20.0); Blood Urea Nitrogen 18 mg/dL (9-23); Glucose 98 mg/dL (74-106)
[2024-11-19 06:10] LABS: Chloride 112 mmol/L (98-107)
[2024-11-19] MEDS: DOXAPRAM HCL 20 MG/ML 20ML VIAL INJ IV ONE (08:40)
[2024-11-19] MEDS: SUCCINYLCHOLINE CHLORIDE 20 MG/ML 10ML VIAL IV ONE (08:41)
[2024-11-19] MEDS: ROCURONIUM 10MG/ML 10ML VIAL IV ONE (08:41)
[2024-11-19] MEDS ORDERED: KETAMINE 50mg/ML 1ml syringe ONE (08:59)
[2024-11-19] MEDS ORDERED: HYDROmorphone HCL 2 MG/ML VL/or syr ONE (08:59)
[2024-11-19] MEDS ORDERED: PROPOFOL 10 MG/ML 20 ML IV ONE ×2 (09:00→11:15)
[2024-11-19] MEDS ORDERED: MIDAZOLAM HCL 2MG/2ML 2ml VIAL (1mg/ml) ONE (09:00)
[2024-11-19] MEDS ORDERED: fentaNYL CITRATE 100 MCG/2 ML VL ONE (09:00)
[2024-11-19] MEDS ORDERED: ONDANSETRON HCL 4 MG/2 ML VIAL ONE (09:00)
[2024-11-19] MEDS ORDERED: fentaNYL CITRATE 5 ML ONE ×2 (09:00→11:53)
[2024-11-19] MEDS ORDERED: LIDOCAINE 2% TOPICAL JELLY 5 ML URJT TOP ONE (09:00)
[2024-11-19] MEDS ORDERED: LIDOCAINE 1% INJ PF 5ML AMP ONE (09:00)
[2024-11-19] MEDS ORDERED: SODIUM CHLORIDE LOCK 50 ML ONE (09:00)
[2024-11-19] MEDS: ceFAZolin 2 GM/D5W50ml 50 ML IV ONE (09:37)
--- NOTE | 2024-11-19 09:54 | DVHPN2 ---
Reviewed: Care Plan, H&P, Labs, Medications, Previous Orders, Radiology Changes from previous H/P or p: No Changes Eyes: No Pain, No Vision change, No Conjunctivae inflammation, No Eyelid inflammation, No Other, No Redness ENT: No Ear pain, No Ear discharge, No Nose pain, No Nose discharge, No Nose congestion, No Mouth pain, No Mouth swelling, No Throat pain, No Throat swelling, No Other Cardiovascular: No Chest Pain, No Palpitations, No Orthopnea, No Paroxysmal Noc. Dyspnea, No Edema, No Lt Headedness, No Other Respiratory: No Cough, No Dry, No Shortness of breath, No SOB with excertion, No Wheezing, No Hemoptysis, No Pleuritic Pain, No Sputum, No Other Gastrointestinal: No Nausea, No Vomiting, No Abdominal Pain, No Diarrhea, No Constipation, No Melena, No Hematochezia, No Other Genitourinary: No Dysuria, No Frequency, No Incontinence, No Hematuria, No Retention, No Other Musculoskeletal: No other, No neck pain, No shoulder pain, No arm pain, No back pain, No hand pain, No leg pain, No foot pain Skin: No Rash, No Lesions, No Jaundice, No Bruising, No Other Objective Vitals Vital Signs Date Time Temp Pulse Resp B/P (MAP) Pulse Ox O2 Delivery O2 Flow Rate FiO2 11/19/24 06:45 81 18 99 11/19/24 06:37 Room Air* 0 21 11/19/24 05:00 97.9 112/77 (89) 97.9 Intake/Output Intake and Output 11/19/24 07:00 Intake Total 720 ml Balance 720 ml Intake Oral 720 ml # Voids 5 # Bowel Movements 2 Medications Current Medications Medications Dose Ordered Sig/Maisha Route Start Time Stop Time Status Last Admin Dose Admin Albuterol 2.5 mg Q4HPRN PRN NEB 11/14/24 04:30 11/19/24 06:37 2.5 MG Ipratropium [place] 0.5 mg Q4HPRN PRN NEB 11/14/24 04:30 11/19/24 06:37 0.5 MG Sertraline HCl 100 mg DAILY PO 11/14/24 10:00 11/18/24 09:49 100 MG Quetiapine Fumarate 200 mg HS PO 11/14/24 22:00 11/18/24 21:45 200 MG Atorvastatin Calcium 40 mg HS PO 11/14/24 22:00 11/18/24 21:45 40 MG Famotidine 20 mg Q12HR IV 11/14/24 10:00 11/18/24 21:45 20 MG Sodium Chloride 10 ml Q8HR IV 11/14/24 06:00 11/19/24 05:56 10 ML Acetaminophen/ Hydrocodone Bitart 1 tab Q4HP PRN PO 11/14/24 04:30 11/18/24 07:56 1 TAB Ondansetron HCl 4 mg Q4HP PRN IV 11/14/24 04:30 Docusate Sodium 100 mg BIDPRN PRN PO 11/14/24 04:30 Ascorbic Acid 500 mg BID PO 11/14/24 10:00 11/18/24 21:45 500 MG Multivitamins 1 tab DAILY PO 11/14/24 10:00 11/18/24 09:50 1 TAB Acetaminophen 650 mg Q6HP PRN PO 11/14/24 04:30 Nitroglycerin 0.4 mg Q5MINP PRN SL 11/14/24 05:15 Morphine Sulfate 2 mg Q30M PRN IV 11/14/24 05:15 Laboratory Results Laboratory Tests 11/19/24 05:16 Chemistry Test 11/18/24 10:49 11/19/24 05:16 Calcium Level 9.2 mg/dL (8.7-10.4) 9.1 mg/dL (8.7-10.4) Coagulation Test 11/19/24 05:16 Prothrombin Time 12.3 sec (9.3-11.8) H Prothrombin Time INR 1.18 (0.9-1.15) H Activated Partial Thromboplast Time 28.0 SEC (24.5-34.5) Lipid panel Test 11/18/24 10:49 Cholesterol Level 117 mg/dL (< 200) HDL Cholesterol 27 mg/dL (40-59) L Triglycerides Level 69 mg/dL (< 150) Urinalysis Test 11/13/24 21:17 Urine Color Colorless (Yellow) Urine Clarity Clear (Clear) Urine pH 6.5 (5.0-9.0) Urine Specific [place] 1.005 (1.001-1.035) Urine Protein Negative (Negative) Urine Ketones Negative (Negative) Urine Blood Negative /uL (Negative) Urine Nitrite Negative (Negative) Urine Bilirubin Negative (Negative) Urine Urobilinogen Normal mg/dL (Negative) Urine Leukocyte Esterase Negative /uL (Negative) Urine RBC <1 /hpf (0 - 3) Urine Microscopic WBC < 1 /HPF (0-3) Urine Squamous Epithelial Cells None seen /hpf (<5) Urine Bacteria None seen /hpf (None Seen) Urine Glucose Normal mg/dL (Normal) Labs and/or images reviewed: Labs reviewed by me, Image(s) reviewed by me Assessment/Plan Assessment/Plan Acute generalized weakness 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 Wilks cleared for surgery echo 65 %ejection fraction Hypoesthesia bilateral upper and lower extremities secondary to C-spine myelopathy C-spine and T-spine syringomyelia Acute hypokalemia: Replace potassium History of asthma Acute COPD exacerbation Schizophrenia Depression Hypercholesterolemia Kelsey test negative Flu test negative A1c normal Unsteady gait: MRI brain negative, Neurology consult for Dr. Rodriguez appreciated, Chronic current marijuana abuse: Counseling Time spent 50 minutes Advanced care planning time 20 minutes Patient is full code Plan discussed with: Patient My Orders Orders - TAWANA SAMANO MD Procedure Category Date Status Time Type And Screen BBK 11/19/24 In Process 04:00 Date of Service: Nov 19, 2024 Billing Provider: TAWANA SAMANO MD Common Visit Codes: [id number] INP/OBS CARE(HIGH) TAWANA SAMANO MD Nov 19, 2024 09:54
[2024-11-19] MEDS: KETOROLAC TROMETH 30 MG/ML 1ML VIAL IV ONE (10:15)
[2024-11-19] MEDS ORDERED: HYDROmorphone HCL 2 MG/ML VL/or syr IV PRN ×2 (10:15)
[2024-11-19] MEDS ORDERED: MORPHINE SULFATE 4 MG/ML SYR/VIAL IV PRN (10:15)
[2024-11-19] MEDS ORDERED: MORPHINE SULFATE INJ 2 MG/ml SYRG IV PRN (10:15)
[2024-11-19] MEDS: ACCU-CHEK COMFORT CURVE STRIP VI ONE (10:15)
[2024-11-19] MEDS ORDERED: METOCLOPRAMIDE HCL 5MG/ml INJ 2ml VIAL IV PRN (10:15)
--- NOTE | 2024-11-19 10:17 | PRN ---
Misceleneous Note Note Note Surgical/procedural interval history and physical note Current H and P was reviewed. The patient was reexamined. Re-evaluation of the patient confirms the necessity for the scheduled procedure. No change has occurred in the patient's condition since the H and P and a spine consult was complete no less than 30 days ago. Physicians verification of informed consent The patient was counseled regarding the procedure, its indications, risks, potential complications, and alternatives. The risks/benefits/alternatives of surgery were explained to the patient in detail including but not limited to , stroke, paralysis, myocardial infarction, bleeding, infection, complications of anesthesia (dry mouth, sore throat, dental damage, respiratory depression, blindness), postoperative infection, incomplete relief of symptoms, recurrence of symptoms, damage to blood vessels, nerves and tendons, pulmonary embolism and possible need for repeat surgery in the future. Pain, damage to surrounding soft tissue structures, need for reoperation or future surgery, persistent pain/disability/deformity, bone graft collapse or extrusion of interbody device, instrumentation failure, need for instrumentation removal, dural tear, temporary or permanent nerve root damage, deep vein thrombosis, pulmonary embolism, were described to the patient in detail and the patient wishes to proceed. No guarantee of surgical outcome/improvement was implied. All of the questions were answered thoroughly, patient was agreeable to proceed and consents were obtained. Physicians verification of informed consent for blood transfusion There is a reasonable possibility that blood transfusions will be necessary as a result of the patient's procedure. I have discussed the following with the patient/patient's legal agency service representative. An explanation of benefits and risks of the transfusion of blood or blood products and possible alternatives. All questions have been answered to the patient's or they are legal representatives satisfaction. Informed consent -The patient has been informed of: -The nature of the proposed care, treatment, services, medications, interventions or procedures. -Potential benefits, risks or side effects, including potential problems related to the procedure. -The likelihood of achieving care treatment and Service goals -Possible alternatives to the procedure/proposed care, treatment and service. -The relative risks, benefits and side effects related to alternatives, including possible results of not receiving care, treatment and services. -When indicated, any limitations on the confidentiality of the informed leaning from or about the patient. -if appropriate, the risks, benefits and alternatives of the drugs to be used for sedation/analgesia including moderate sedation. -if appropriate, patient has been provided information on the risks, benefits and alternatives to the transfusion of blood and/or blood products. -if appropriate, the patient has been provided information regarding the Topher Cali blood act. Call with questions Katerina Hsu [facility] Orthopaedic Spine Surgery nurse practitioner For Dr Kristin Wilson Patient was examined, chart reviewed, labs evaluated, and diagnostic studies and findings analyzed. Case was discussed with Dr. Ambrocio Wilson who formulated the plan of care. This medical document was created using an electronic medical record system with [employer] dictation system. Although this document has been carefully reviewed, there might still be some phonetic and typographical errors. These areas are purely typographical due to imperfections of the software programs, and do not reflect any compromise in the patient's medical care. YUNIEL HSU NP Nov 19, 2024 10:17
[2024-11-19] MEDS: TRANEXAMIC ACID 20 ML ONE (10:47)
--- NOTE | 2024-11-19 13:11 | DVHOP2 ---
Operative Report - 2 Report Details Date: 11/19/24 Preop Diagnosis: Large herniated C3/4 cervical disc causing severe central canal stenosis with mass effect on the spinal cord and edema consistent with cord signal changes resulting in cervical myelopathy and radiculopathy Postop Diagnosis: same as pre op Surgeon: Ambrocio Wilson MD Data Reduction Technician: Georgia Hsu NP Anesthesiologist: connie Anesthesia: General Consent: The patient was informed of the risks and benefits of the procedure. These include but are not limited to complications of anesthesia, postoperative infection, incomplete relief of symptoms, recurrence of symptoms, damage to blood vessels, nerves and tendons, deep venous thrombosis, pulmonary embolism and possible need for repeat surgery in the future. Name of Procedure Performed see detailed note Procedure Details Procedure Details: Pre Op Diagnosis: 1. Cervical Degenerative Disk Disease and Severe Spinal Stenosis at Cervical 3/4 disc causing incapacitating neck pain, radiculopathy and progressive neurologic deficit 2. Large C3/4 disc herniation resulting in mass effect on the spinal cord causing cord swelling and signal changes on MRI consistent with cord damage resulting in myelopathy and radiculopathy. Post Op Diagnosis: same as pre op Procedure: Cervical 3 to 4 anterior cervical discectomy with Cervical 3-4 foraminotomies and facetectomies to decompression the spinal canal and Cervical 4 nerve roots Cervical 3-4 anterior cervical Fusion Cervical 3-4 anterior cervical instrumentation with Xtant Irix-C Standalone Interbody Fusion Device Cervical 3-4 placement of allograft prosthetic device Microscope for micro dissection Surgeon: Ambrocio Wilson MD Anesthesia: General Assist: Georgia Hsu NP Fluids and EBL: see anesthesia note Procedure Note: The patient was seen in the Pre-anesthesia Care Unit and the site of the incision was initialed by me with a felt tipped marker. All questions by the patient were answered to the satisfaction of the patient and the chart was reviewed. The patient was taken to the operating room and placed supine on the [facility] Flat top table. General anesthesia was induced. Neuromonitoring leads were placed. Fiberoptic intubation was needed to avoid having the patient hyperextend the neck making the cord compression worse. Similarlly, we did not used a pad between the shoulder blades to avoid too much extension of the neck. Halter traction to 10 pounds was placed. The arms were padded and adducted to the patients side making sure all pulses in the hands were present. Tape traction was undertaken on the shoulders to give us better radiographic exposure of the distal cervical spine. A gel-pad was placed under the occiput and 5 degrees of extension was placed on the neck without adverse effects to the patient. The anterior neck was prepped and draped. Pre-operative antibiotics were given 30 minutes prior to the start of the procedure. A c-arm fluoroscope was used to dominic out the incision site. At this time, a time out was taken per usual protocol. Next an incision was made through the skin with a 15 blade scalpel through the subcutaneous tissue down to the platysma. Self-retainers were placed. The platysma was incised along the longitudinal border with a Metzenbaum sciss ors. Blunt dissection was made through the deep cervical and pre-tracheal fascia taking care to protect the carotid sheath laterally and the Trachea/esophagus medially. The dissection was carried down to the prevertebral fascia. Any crossing vessels were ligated using a vascular clip or coagulated with a bovie. An esophageal retractor was next used to retract the trachea/esophagus and a bent [address] through the anterior annulus of the cervical disk and a lateral C-arm fluoroscopic image was taken to confirm that we were at the correct level. Next, bovie electrocautery was used to expose the bones of cervical 3 and 4 and bipolar electrocuatery was used to lift up the Longus colli and capitus muscles. Black-Belt Self Retainers were used to retract the longus colli and capitus muscles bilaterally as well as the trachea/esophagus to the right and the carotid sheath to the left. Smooth thin Black-Belt retractors were placed proximally and distally and a needle was placed again in the anterior annulus of the disk and an image taken to confirm the correct level. At this point, the microscope was wheeled in and an 11 blade scalpel incised the anterior annulus of the cervical 3/4 disc. Next, straight and curved curettes removed the remainder of the disks all the way down to the posterior longitudinal ligament. Carefully, a Kerison number one rongeur incised the posterior longitudinal ligament at the lateral end of the disc and using a micro, blunt tip nerve hook to separate the posterior longitudinal ligament from the dura, alternating 1 mm and 2 mm Kerison rongeurs removed the posterior longitudinal ligament. Next, Kerison 1mm and 2 mm rongeurs were alternated to get under the uncinate processes and undercut them to perform foraminotomies and factectomies at the C3/4 level to decompress the central canal and cervical 4 nerve roots bilaterally. Next the microscope was wheeled away and the c-arm fluoroscope was wheeled into the field and a lateral image was obtained. Increasing size graft trials were used starting at a 5 mm thick size until the proper tension in the disk space and height mosque obtained. We then placed final free standing cage at C3/4. Satisfactory placement was confirmed in the AP and lateral views using a C-arm fluoroscope. Copious irrigation of the wound with sterile saline and all bleeding was controlled before closure initiated. At this point, a 10 [place]ian round T[address] Drain was place deep to the Platysma muscle and the Platysma was approximated with one interrupted 0-Vicryl suture. The subcutaneous tissue was closed with interrupted 2-0 vicryl sutures and the skin was closed with whit. Sterile dressings were placed and a cervical collar placed, the patient extubated, transferred to the stretcher and taken to the Recovery Room in unremarkable condition. Other Notes: Condition Stable Disposition Still a Patient AMBROCIO WILSON MD Nov 19, 2024 13:11
--- NOTE | 2024-11-19 14:10 | DVH ---
C-ARM FLUOROSCOPY: PROCEDURE: cervical acdf FLUOROSCOPY TIME: 44.5 sec DAP: 9.02 mgy FINDINGS: Spot intraoperative C arm radiographs demonstrating cervical acdf. IMPRESSION: Please refer to surgical report for detailed findings.
--- NOTE | 2024-11-19 14:10 | DVH ---
C-ARM FLUOROSCOPY: PROCEDURE: cervical acdf FLUOROSCOPY TIME: 44.5 sec DAP: 9.02 mgy FINDINGS: Spot intraoperative C arm radiographs demonstrating cervical acdf. IMPRESSION: Please refer to surgical report for detailed findings.
--- NOTE | 2024-11-19 23:45 | DVHPN2 ---
Progress Note - Dictate Date Seen: Nov 19, 2024 Medical Necessity Reason Pt with a Central, PICC or Fol: No Subjective Mr. Harrison is a 64 years old left-handed gentleman with a history of asthma, COPD, arthritis, schizophrenia, he came to the [facility] on 11/13/2024 with a chief complaint of general weakness and gait disturbance. I have seen and examined the patient, along with his sitter and nurse. I have discussed with Dr Wilson He had Cervical spine surgery on 11/19/2024, he is doing fine, oriented x3, no new complaints Urinalysis, 11/13/2024: Unremarkable UDS, 11/13/2024: Cannabinoids Plasma alcohol, 11/14/2024: <3 WBC/HB/PLT/MCV, 11/15/2024: 5.6/13/191/95.8 Sodium, 11/13/2024: 146, 11/14/2024: 146, 11/15/2024: 146 HbA1c 11/15/2024: 5.6 Liver function tests, 11/13/2024: Unremarkable TG/HDL/LDL/HDL, 04/2023: 99/150/99/43 Vitamin B12, 04/2023:410 TSH, 11/14/2024: 3.51 MRI head, 11/15/2024: No acute infarct, intracranial hemorrhage, mass effect, or hydrocephalus. MRI C-spine, 11/16/2024: 1. Degenerative disc disease and facet/ uncinate disease in the cervical spine with associated spinal canal, subarticular, and neural foraminal stenoses as detailed above. 2. There is a degree of congenital spinal canal narrowing contributing to the spinal canal stenoses. 3. T2/stir hyperintense signal in the spinal cord extending from the C3-C5 levels consistent with myelopathy secondary to the spinal canal stenosis at C3-C4. 4. Additional findings as described above MRI T-spine, 11/16/2024: 1. Degenerative disc disease and facet disease in the thoracic spine with associated spinal canal and neural foraminal stenoses as detailed above. 2. Prominent Modic type 2 endplate changes at T5-T6. 3. No signal abnormality in the spinal cord. 4. Additional findings as described above. vital signs Vital Sign Date Time Temp Pulse Resp B/P (MAP) Pulse Ox O2 Delivery O2 Flow Rate FiO2 11/19/24 21:00 99.5 81 18 131/80 (97) 94 99.5 11/19/24 08:00 Room Air* 0 21 Total Intake and Output 11/18/24 11/18/24 11/19/24 15:00 23:00 07:00 Intake Total 600 ml 120 ml Balance 600 ml 120 ml medications Current Medications Medications Dose Ordered Sig/Maisha Route Start Time Stop Time Status Last Admin Dose Admin Albuterol 2.5 mg Q4HPRN PRN NEB 11/14/24 04:30 11/19/24 19:46 2.5 MG Ipratropium [place] 0.5 mg Q4HPRN PRN NEB 11/14/24 04:30 11/19/24 19:46 0.5 MG Sertraline HCl 100 mg DAILY PO 11/14/24 10:00 11/19/24 15:48 100 MG Quetiapine Fumarate 200 mg HS PO 11/14/24 22:00 11/19/24 21:13 200 MG Atorvastatin Calcium 40 mg HS PO 11/14/24 22:00 11/19/24 21:13 40 MG Famotidine 20 mg Q12HR IV 11/14/24 10:00 11/19/24 21:13 20 MG Sodium Chloride 10 ml Q8HR IV 11/14/24 06:00 11/19/24 21:16 10 ML Acetaminophen/ Hydrocodone Bitart 1 tab Q4HP PRN PO 11/14/24 04:30 11/19/24 15:48 1 TAB Ondansetron HCl 4 mg Q4HP PRN IV 11/14/24 04:30 Docusate Sodium 100 mg BIDPRN PRN PO 11/14/24 04:30 Ascorbic Acid 500 mg BID PO 11/14/24 10:00 11/19/24 21:13 500 MG Multivitamins 1 tab DAILY PO 11/14/24 10:00 11/19/24 15:48 1 TAB Acetaminophen 650 mg Q6HP PRN PO 11/14/24 04:30 Nitroglycerin 0.4 mg Q5MINP PRN SL 11/14/24 05:15 Morphine Sulfate 2 mg Q30M PRN IV 11/14/24 05:15 objective General: the patient is well developed and nourished. No acute distress. MUSCULOSKELETAL EXAM: No tenderness to palpation in the whole spine MENTAL STATUS: Subjective SPEECH, LANGUAGE, HIGHER CORTICAL FUNCTION: no aphasia or dysathria. CRANIAL NERVES: Pupils are equal, round and reactive. EOMs full and conjugate. Mild bilateral gaze evoked nystagmus. Facial sensation intact in all three divisions bilaterally. Mandibular strength intact. Facial muscles symmetrical and strength intact. Tongue midline. No fasciculations or atrophy. SENSATION: Sensation to touch and pinprick is unremarkable today, no sensory level MOTOR: Normal tone in the upper and lower extremity. Normal muscle bulk. No fasciculations. No abnormal movements or posturing. Muscle strength of the major groups in the upper extremities is 4/5. Muscle strength of the major groups in the lower extremities is 4/5. REFLEXES: Deep tendon reflexes are symmetrical, 2/4. No pathological reflexes. CEREBELLAR/COORDINATION: Finger to nose is normal bilaterally. GAIT/STATION: deferred. laboratory and microbiology Laboratory Tests 11/19/24 05:16 Test 11/19/24 05:16 Range/Units Serum Glucose 98 74-106 mg/dL Problem List General weakness Gait disturbance Cervical spine spondylosis with myelopathy, status post surgery Assessment/Plan Monitoring Supportive treatment Telemetry Follow up labs Up to chair Physical therapy Spine team consultation More recommendation per clinical course This medical document was created using an electronic medical record system with [employer] computerized dictation system. Although this document has been carefully reviewed, there may still be some phonetic and typographical errors. These areas are purely typographical due to imperfections of the software programs, and do not reflect any compromise in the patient's medical care. Prognosis poor Dietary Evaluation Review Comments: Monitor and encourage PO feeding to meet at least 75% of his needs Offer Ensure HP 240ml PO BID if intake <75% Offer Kraig BID for wound healing Expected Outcomes/Goals: prevent wt loss, healed wounds Plan discussed with: Patient, Other JOSE LOPEZ MD Nov 19, 2024 23:45
[2024-11-20] VITALS (14 sets, daily range): BP systolic 104–128; BP diastolic 62–83; PULSE 75–97; RESP 16–20; TEMP 97.9–98.8; O2SAT 92–100
--- NOTE | 2024-11-20 10:03 | DVHPN2 ---
Reviewed: Care Plan, H&P, Labs, Medications, Previous Orders, Radiology Changes from previous H/P or p: No Changes Eyes: No Pain, No Vision change, No Conjunctivae inflammation, No Eyelid inflammation, No Other, No Redness ENT: No Ear pain, No Ear discharge, No Nose pain, No Nose discharge, No Nose congestion, No Mouth pain, No Mouth swelling, No Throat pain, No Throat swelling, No Other Cardiovascular: No Chest Pain, No Palpitations, No Orthopnea, No Paroxysmal Noc. Dyspnea, No Edema, No Lt Headedness, No Other Respiratory: No Cough, No Dry, No Shortness of breath, No SOB with excertion, No Wheezing, No Hemoptysis, No Pleuritic Pain, No Sputum, No Other Gastrointestinal: No Nausea, No Vomiting, No Abdominal Pain, No Diarrhea, No Constipation, No Melena, No Hematochezia, No Other Genitourinary: No Dysuria, No Frequency, No Incontinence, No Hematuria, No Retention, No Other Musculoskeletal: No other, No neck pain, No shoulder pain, No arm pain, No back pain, No hand pain, No leg pain, No foot pain Skin: No Rash, No Lesions, No Jaundice, No Bruising, No Other Objective Vitals Vital Signs Date Time Temp Pulse Resp B/P (MAP) Pulse Ox O2 Delivery O2 Flow Rate FiO2 11/20/24 09:40 97 Room Air 11/20/24 09:40 0 21 11/20/24 09:37 82 16 11/20/24 07:56 98.2 121/75 (90) 98.2 Intake/Output Intake and Output 11/20/24 07:00 Intake Total 910 ml Output Total 780 ml Balance 130 ml Intake Oral 800 ml IV Total 110 ml Output Urine Total 750 ml Drainage Total 30 ml Medications Current Medications Medications Dose Ordered Sig/Maisha Route Start Time Stop Time Status Last Admin Dose Admin Albuterol 2.5 mg Q4HPRN PRN NEB 11/14/24 04:30 11/20/24 09:36 2.5 MG Ipratropium [place] 0.5 mg Q4HPRN PRN NEB 11/14/24 04:30 11/20/24 09:36 0.5 MG Sertraline HCl 100 mg DAILY PO 11/14/24 10:00 11/20/24 09:12 100 MG Quetiapine Fumarate 200 mg HS PO 11/14/24 22:00 11/19/24 21:13 200 MG Atorvastatin Calcium 40 mg HS PO 11/14/24 22:00 11/19/24 21:13 40 MG Famotidine 20 mg Q12HR IV 11/14/24 10:00 11/20/24 09:14 20 MG Sodium Chloride 10 ml Q8HR IV 11/14/24 06:00 11/20/24 06:00 10 ML Acetaminophen/ Hydrocodone Bitart 1 tab Q4HP PRN PO 11/14/24 04:30 11/20/24 06:47 1 TAB Ondansetron HCl 4 mg Q4HP PRN IV 11/14/24 04:30 Docusate Sodium 100 mg BIDPRN PRN PO 11/14/24 04:30 Ascorbic Acid 500 mg BID PO 11/14/24 10:00 11/20/24 09:12 500 MG Multivitamins 1 tab DAILY PO 11/14/24 10:00 11/20/24 09:12 1 TAB Acetaminophen 650 mg Q6HP PRN PO 11/14/24 04:30 Nitroglycerin 0.4 mg Q5MINP PRN SL 11/14/24 05:15 Morphine Sulfate 2 mg Q30M PRN IV 11/14/24 05:15 Laboratory Results Laboratory Tests 11/19/24 05:16 Urinalysis Test 11/13/24 21:17 Urine Color Colorless (Yellow) Urine Clarity Clear (Clear) Urine pH 6.5 (5.0-9.0) Urine Specific [place] 1.005 (1.001-1.035) Urine Protein Negative (Negative) Urine Ketones Negative (Negative) Urine Blood Negative /uL (Negative) Urine Nitrite Negative (Negative) Urine Bilirubin Negative (Negative) Urine Urobilinogen Normal mg/dL (Negative) Urine Leukocyte Esterase Negative /uL (Negative) Urine RBC <1 /hpf (0 - 3) Urine Microscopic WBC < 1 /HPF (0-3) Urine Squamous Epithelial Cells None seen /hpf (<5) Urine Bacteria None seen /hpf (None Seen) Urine Glucose Normal mg/dL (Normal) Labs and/or images reviewed: Labs reviewed by me, Image(s) reviewed by me Assessment/Plan Assessment/Plan Acute generalized weakness 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 Wilson on 11-19-24, lock expert Dr. Wilks cleared for surgery echo 65 %ejection fraction Hypoesthesia bilateral upper and lower extremities secondary to C-spine myelopathy C-spine and T-spine syringomyelia Acute hypokalemia: Replace potassium History of asthma Acute COPD exacerbation Schizophrenia Depression Hypercholesterolemia Kelsey test negative Flu test negative A1c normal Unsteady gait: MRI brain negative, Neurology consult for Dr. Rodriguez appreciated, Chronic current marijuana abuse: Counseling Time spent 50 minutes Advanced care planning time 20 minutes Patient is full code Physical therapy ordered Plan discussed with: Patient Date of Service: Nov 20, 2024 Billing Provider: TAWANA SAMANO MD Common Visit Codes: [id number] INP/OBS CARE(HIGH) TAWANA SAMANO MD Nov 20, 2024 10:03
--- NOTE | 2024-11-20 11:48 | DVHPN2 ---
Progress Note - Surgical Date Seen: Nov 20, 2024 Post op day Post op day: 1 Subjective Patient reports: No new complaints, Feels better Review of Systems: HEENT:Normal, CVS:Normal, RESPIRATORY:Normal, GI:Normal, :Normal, MSK:Normal (Vastly improved strength to bilateral lower extremities and right hand), NEURO:Abnormal (Improvement from preoperative state) Objective Vital signs Vital Sign Date Time Temp Pulse Resp B/P (MAP) Pulse Ox O2 Delivery O2 Flow Rate FiO2 11/20/24 09:47 90 16 100 11/20/24 09:40 Room Air 11/20/24 09:40 0 21 11/20/24 07:56 98.2 121/75 (90) 98.2 Total Intake and Output 11/19/24 11/19/24 11/20/24 15:00 23:00 07:00 Intake Total 110 ml 0 ml 800 ml Output Total 20 ml 760 ml Balance 110 ml -20 ml 40 ml Medications Current Medications Medications Dose Ordered Sig/Maisha Route Start Time Stop Time Status Last Admin Dose Admin Albuterol 2.5 mg Q4HPRN PRN NEB 11/14/24 04:30 11/20/24 09:36 2.5 MG Ipratropium [place] 0.5 mg Q4HPRN PRN NEB 11/14/24 04:30 11/20/24 09:36 0.5 MG Sertraline HCl 100 mg DAILY PO 11/14/24 10:00 11/20/24 09:12 100 MG Quetiapine Fumarate 200 mg HS PO 11/14/24 22:00 11/19/24 21:13 200 MG Atorvastatin Calcium 40 mg HS PO 11/14/24 22:00 11/19/24 21:13 40 MG Famotidine 20 mg Q12HR IV 11/14/24 10:00 11/20/24 09:14 20 MG Sodium Chloride 10 ml Q8HR IV 11/14/24 06:00 11/20/24 06:00 10 ML Acetaminophen/ Hydrocodone Bitart 1 tab Q4HP PRN PO 11/14/24 04:30 11/20/24 06:47 1 TAB Ondansetron HCl 4 mg Q4HP PRN IV 11/14/24 04:30 Docusate Sodium 100 mg BIDPRN PRN PO 11/14/24 04:30 Ascorbic Acid 500 mg BID PO 11/14/24 10:00 11/20/24 09:12 500 MG Multivitamins 1 tab DAILY PO 11/14/24 10:00 11/20/24 09:12 1 TAB Acetaminophen 650 mg Q6HP PRN PO 11/14/24 04:30 Nitroglycerin 0.4 mg Q5MINP PRN SL 11/14/24 05:15 Morphine Sulfate 2 mg Q30M PRN IV 11/14/24 05:15 Laboratory Laboratory Tests 11/19/24 05:16 Test 11/19/24 05:16 Range/Units Serum Glucose 98 74-106 mg/dL Examination: GENERAL:Normal, HEENT:Normal, NECK:Normal (Left anterior surgical site well approximated with Monocryl suture drain site intact minimal drainage 30 mL since surgery. Drain removed), LUNGS:Normal, CVS:Normal, ABDOMEN:Normal, MSK:Abnormal (Improve strength bilateral lower extremities and right hand, patient is able to make a fist strength is a 3/5 to the right hand), SKIN:Normal (Anterior surgical site slightly red no swelling), NEURO:Abnormal (Still complains of some numbness to arms however patient says is 75% improved than his preoperative state and), :Normal Problem List/Assessment/Plan Problems: (1) Acute post-operative pain (2) Muscle spasms of neck Assessment and Plan Drain discontinued today, drain site we will continue to drain over the next 2-3 days Surgical postoperative site healing well, well-approximated no swelling no bleeding Patient is able to get up and ambulate vast improvement over nonambulatory status in the past 2.5 months Patient reports that his numbness and tingling to his bilateral arms has improved by 75% Patient is able to make a complete fist on the right hand, and 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 Case was discussed with Dr. Ambrocio Wilson who formulated the plan of care. This medical document was created using an electronic medical record system with [employer] dictation system. Although this document has been carefully reviewed, there might still be some phonetic and typographical errors. These areas are purely typographical due to imperfections of the software programs, and do not reflect any compromise in the patient's medical care. My Orders My Orders Orders - YUNIEL HSU NP Procedure Category Date Status Time Cardiac DIET 11/19/24 Transmitted Diet-2gna,Lofat,Lochol Dinner Plan discussed with Plan discussed with: Patient, Other (Gabriela SAMPSON) Visit Coding Surgery Date of Service if different f: Nov 20, 2024 Billing Provider: YUNIEL HSU NP Surgery Visit Codes: NOT BILLABLE YUNIEL HSU NP Nov 20, 2024 11:48
[2024-11-20] MEDS: THROAT LOZENGES(CEPASTAT) MT PRN (17:38)
[2024-11-21 05:00] VITALS: BP 105/63; PULSE 88; RESP 20; TEMP 98.7; O2SAT 94
[2024-11-21 06:51] VITALS: O2SAT 94
[2024-11-21 06:59] VITALS: O2SAT 97
[2024-11-21 08:00] VITALS: PULSE 84; RESP 18; O2SAT 91
--- NOTE | 2024-11-21 08:39 | DVHPN2 ---
Reviewed: Care Plan, H&P, Labs, Medications, Previous Orders, Radiology Changes from previous H/P or p: No Changes Eyes: No Pain, No Vision change, No Conjunctivae inflammation, No Eyelid inflammation, No Other, No Redness ENT: No Ear pain, No Ear discharge, No Nose pain, No Nose discharge, No Nose congestion, No Mouth pain, No Mouth swelling, No Throat pain, No Throat swelling, No Other Cardiovascular: No Chest Pain, No Palpitations, No Orthopnea, No Paroxysmal Noc. Dyspnea, No Edema, No Lt Headedness, No Other Respiratory: No Cough, No Dry, No Shortness of breath, No SOB with excertion, No Wheezing, No Hemoptysis, No Pleuritic Pain, No Sputum, No Other Gastrointestinal: No Nausea, No Vomiting, No Abdominal Pain, No Diarrhea, No Constipation, No Melena, No Hematochezia, No Other Genitourinary: No Dysuria, No Frequency, No Incontinence, No Hematuria, No Retention, No Other Musculoskeletal: No other, No neck pain, No shoulder pain, No arm pain, No back pain, No hand pain, No leg pain, No foot pain Skin: No Rash, No Lesions, No Jaundice, No Bruising, No Other Objective Vitals Vital Signs Date Time Temp Pulse Resp B/P (MAP) Pulse Ox O2 Delivery O2 Flow Rate FiO2 11/21/24 06:59 97 Room Air 11/21/24 06:59 0 21 11/21/24 05:00 98.7 88 20 105/63 (77) 98.7 Intake/Output Intake and Output 11/21/24 07:00 Intake Total 1950 ml Output Total 1550 ml Balance 400 ml Intake Oral 1950 ml Output Urine Total 1550 ml Medications Current Medications Medications Dose Ordered Sig/Maisha Route Start Time Stop Time Status Last Admin Dose Admin Albuterol 2.5 mg Q4HPRN PRN NEB 11/14/24 04:30 11/20/24 21:13 2.5 MG Ipratropium [place] 0.5 mg Q4HPRN PRN NEB 11/14/24 04:30 11/20/24 21:13 0.5 MG Sertraline HCl 100 mg DAILY PO 11/14/24 10:00 11/20/24 09:12 100 MG Quetiapine Fumarate 200 mg HS PO 11/14/24 22:00 11/20/24 21:12 200 MG Atorvastatin Calcium 40 mg HS PO 11/14/24 22:00 11/20/24 21:13 40 MG Famotidine 20 mg Q12HR IV 11/14/24 10:00 11/20/24 21:13 20 MG Sodium Chloride 10 ml Q8HR IV 11/14/24 06:00 11/20/24 21:13 10 ML Acetaminophen/ Hydrocodone Bitart 1 tab Q4HP PRN PO 11/14/24 04:30 11/20/24 21:12 1 TAB Ondansetron HCl 4 mg Q4HP PRN IV 11/14/24 04:30 Docusate Sodium 100 mg BIDPRN PRN PO 11/14/24 04:30 Ascorbic Acid 500 mg BID PO 11/14/24 10:00 11/20/24 21:12 500 MG Multivitamins 1 tab DAILY PO 11/14/24 10:00 11/20/24 09:12 1 TAB Acetaminophen 650 mg Q6HP PRN PO 11/14/24 04:30 Nitroglycerin 0.4 mg Q5MINP PRN SL 11/14/24 05:15 Morphine Sulfate 2 mg Q30M PRN IV 11/14/24 05:15 Throat Lozenges 1 [place] Q2HP PRN MT 11/20/24 17:15 11/20/24 17:38 1 [place] Laboratory Results Laboratory Tests 11/19/24 05:16 Urinalysis Test 11/13/24 21:17 Urine Color Colorless (Yellow) Urine Clarity Clear (Clear) Urine pH 6.5 (5.0-9.0) Urine Specific [place] 1.005 (1.001-1.035) Urine Protein Negative (Negative) Urine Ketones Negative (Negative) Urine Blood Negative /uL (Negative) Urine Nitrite Negative (Negative) Urine Bilirubin Negative (Negative) Urine Urobilinogen Normal mg/dL (Negative) Urine Leukocyte Esterase Negative /uL (Negative) Urine RBC <1 /hpf (0 - 3) Urine Microscopic WBC < 1 /HPF (0-3) Urine Squamous Epithelial Cells None seen /hpf (<5) Urine Bacteria None seen /hpf (None Seen) Urine Glucose Normal mg/dL (Normal) Labs and/or images reviewed: Labs reviewed by me, Image(s) reviewed by me Assessment/Plan Assessment/Plan Acute generalized weakness 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 Wilson on 11-19-24, spine surgeon followed the patient and removed the drain on 11/20/2024, and cleared for discharge; patient has significant improvement in the numbness of the bilateral for extremities and now able to walk. Workforce Management Analyst Dr. Wilks cleared for surgery echo 65 %ejection fraction Hypoesthesia bilateral upper and lower extremities secondary to C-spine myelopathy C-spine and T-spine syringomyelia Acute hypokalemia: Replace potassium History of asthma Acute COPD exacerbation Schizophrenia Depression Hypercholesterolemia Kelsey test negative Flu test negative A1c normal Unsteady gait: MRI brain negative, Neurology consult for Dr. Rodriguez appreciated, Chronic current marijuana abuse: Counseling Time spent 50 minutes Advanced care planning time 20 minutes Patient is full code Physical therapy ordered Daughter Atiya [phone] at bedside and patient is being discharged today on home health for physical therapy Plan discussed with: Patient Date of Service: Nov 21, 2024 Billing Provider: TAWANA SAMANO MD Common Visit Codes: [id number] INP/OBS CARE(HIGH) TAWANA SAMANO MD Nov 21, 2024 08:39
[2024-11-21 09:00] VITALS: BP 126/84; PULSE 84; RESP 12; TEMP 98.6; O2SAT 96
[2024-11-21] MEDS ORDERED: METH-1182 PO (09:31)
[2024-11-21] MEDS ORDERED: HYDR-4902 PO (09:31)
--- NOTE | 2024-11-21 09:42 | DVHDS2 ---
Discharge Summary Date of Admission Nov 14, 2024 at 05:08 Date of Discharge: Nov 21, 2024 Admitting Diagnosis Bilateral upper extremity weakness and bilateral lower extremity weakness and unable to ambulate Wounds: C-spine surgery Labs/Diagnostic Data: Laboratory Results Test 11/20/24 05:34 11/19/24 05:16 11/18/24 10:49 11/15/24 23:46 POC Glucose 171 mg/dl (70-106) White Blood Count 5.6 10^3/uL (4.4-10.8) Red Blood Count 4.08 10^6/uL (4.5-5.90) Hemoglobin 13.7 g/dL (13.5-17.5) Hematocrit 39.1 % (41.0-53.0) Mean Corpuscular Volume 95.7 fL (80.0-100.0) Mean Corpuscular Hemoglobin 33.7 pg (28.0-32.0) Mean Corpuscular Hemoglobin Concent 35.2 g/dL (32.0-36.0) Red Cell Distribution Width 12.9 % (11.8-14.3) Platelet Count 199 10^3/uL (140-450) Mean Platelet Volume 7.7 fL (6.9-10.8) Neutrophils (%) (Auto) 53.5 % (37.0-80.0) Lymphocytes (%) (Auto) 29.1 % (10.0-50.0) Monocytes (%) (Auto) 11.1 % (0.0-12.0) Eosinophils (%) (Auto) 5.8 % (0.0-7.0) Basophils (%) (Auto) 0.5 % (0.0-2.0) Neutrophils # (Auto) 3.0 10 ^3/uL (1.6-8.6) Lymphocytes # (Auto) 1.6 10 ^3/uL (0.4-5.4) Monocytes # (Auto) 0.6 10 ^3/uL (0-1.3) Eosinophils # (Auto) 0.3 10 ^3/uL (0-0.8) Basophils # (Auto) 0 10 ^3/uL (0-0.2) Nucleated Red Blood Cells 0.0 % Prothrombin Time 12.3 sec (9.3-11.8) Prothrombin Time INR 1.18 (0.9-1.15) Activated Partial Thromboplast Time 28.0 SEC (24.5-34.5) Sodium Level 144 mmol/L (136-145) Potassium Level 3.9 mmol/L (3.5-5.1) Chloride Level 112 mmol/L (98-107) Carbon Dioxide Level 23 mmol/L (20-31) Anion Gap 9 (5-15) Blood Urea Nitrogen 18 mg/dL (9-23) Creatinine 1.02 mg/dL (0.700-1.30) Glomerular Filtration Rate Calc 83 mL/min (>90) BUN/Creatinine Ratio 17.6 (10.0-20.0) Serum Glucose 98 mg/dL (74-106) Calcium Level 9.1 mg/dL (8.7-10.4) Triglycerides Level 69 mg/dL (< 150) Cholesterol Level 117 mg/dL (< 200) LDL Cholesterol 80 mg/dL (< 100) HDL Cholesterol 27 mg/dL (40-59) Hemoglobin A1c 5.6 % A1C (<5.7) Test 11/15/24 05:40 11/14/24 16:30 11/14/24 04:51 11/13/24 21:43 Total Bilirubin 0.3 mg/dL (0.2-1.0) Aspartate Amino Transferase (AST) 18 U/L (13-40) Alanine Aminotransferase (ALT) 17 U/L (7-40) Alkaline Phosphatase 54 U/L (46-116) Total Protein 6.5 g/dL (5.7-8.2) Albumin 4.0 g/dL (3.2-4.8) Influenza Type A Antigen Negative (Negative) Influenza Type B Antigen Negative (Negative) SARS-CoV-2 Antigen (Rapid) Negative (NEGATIVE) Thyroid Stimulating Hormone (TSH) 3.51 uIU/mL (0.55-4.78) Plasma/Serum Blood Alcohol < 3.0 mg/dL (<10) Magnesium Level 2.1 mg/dL (1.6-2.6) Test 11/13/24 21:17 Urine Color Colorless (Yellow) Urine Clarity Clear (Clear) Urine pH 6.5 (5.0-9.0) Urine Specific [place] 1.005 (1.001-1.035) Urine Protein Negative (Negative) Urine Ketones Negative (Negative) Urine Blood Negative /uL (Negative) Urine Nitrite Negative (Negative) Urine Bilirubin Negative (Negative) Urine Urobilinogen Normal mg/dL (Negative) Urine Leukocyte Esterase Negative /uL (Negative) Urine RBC <1 /hpf (0 - 3) Urine Microscopic WBC < 1 /HPF (0-3) Urine Squamous Epithelial Cells None seen /hpf (<5) Urine Bacteria None seen /hpf (None Seen) Urine Glucose Normal mg/dL (Normal) Urine Opiates Screen Neg (NEGATIVE) Urine Fentanyl Screen Neg (NEGATIVE) Urine Barbiturates Screen Neg (NEGATIVE) Urine Phencyclidine Screen Neg (NEGATIVE) Urine Amphetamines Screen Neg (NEGATIVE) Urine Benzodiazepines Screen Neg (NEGATIVE) Urine Cocaine Screen Neg (NEGATIVE) Urine Cannabinoids Screen Pos (NEGATIVE) Other Laboratory Tests 11/19/24 05:16 Brief Hx & Hospital Course: 64-year-old male with a history of schizophrenia depression hypercholesterolemia COPD asthma came in complaining that he is guarded history bilateral weakness upper and lower extremities and unable to ambulate for the last wound of month. MRI of the C-spine showed cervical canal stenosis underwent diskectomy laminectomy and foraminectomy spine surgeon Dr Wilson . Postop course uneventful patient has remarkably improved his strength in the extremities with a good supervisor roving in both hands and able to ambulate with walker. Feels much relieved with the symptoms. Being discharged home on home health for physical therapy prescription for Brooks and Robaxin transmitted to the pharmacy. He will follow up with the surgeon in two weeks. Daughter Charline bedside. Consults/Reason for consult Spine surgeon Dr. 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 Wilson on 11-19-24, spine surgeon followed the patient and removed the drain on 11/20/2024, and cleared for discharge; patient has significant improvement in the numbness of the bilateral for extremities and now able to walk. Die Presser Dr. Wilks cleared for surgery echo 65 %ejection fraction Hypoesthesia bilateral upper and lower extremities secondary to C-spine myelopathy C-spine and T-spine syringomyelia Acute hypokalemia: Replace potassium History of asthma Acute COPD exacerbation Schizophrenia Depression Hypercholesterolemia Kelsey test negative Flu test negative A1c normal Unsteady gait: MRI brain negative, Neurology consult for Dr. Rodriguez appreciated, Chronic current marijuana abuse: Counseling Discharge Disposition: Home with Health Services Discharge Instruct/Medications Diet: Cardiac 2g Na,low cholest Activity: Light activity Follow Up/Referral: Follow up with the Primary DrKendy In one week Follow up with the orthopedic Dr. Wilson in two weeks Medications: Brooks Robaxin Transmitted To pharmacy Scheduled Albuterol Sulfate (Ventolin), 2.5 MG INH Q6HP, (Reported) Ascorbic Acid (Vitamin C Tablet), 500 MG PO BID Cyanocobalamin (Gnp Vitamin B12), 1,000 MCG PO DAILY Ergocalciferol (Vitamin D 46353 Unit), 50,000 UNIT PO Q7D Multiple Vitamin (Mvi Tab), 1 TAB PO DAILY Pantoprazole Sodium Sesquihydr (Pantoprazole Sodium), 40 MG PO DAILY Quetiapine Fumerate (Quetiapine Fumarate), 2 TAB PO HS, (Reported) Rifampin (Rifampin), 300 MG PO BIDPC Sertraline Hcl (Zoloft), 200 MG PO DAILY, (Reported) Simvastatin (Simvastatin), 40 MG PO DAILY, (Reported) Scheduled PRN Acetaminophen (Acetaminophen), 650 MG PO Q6HP PRN Hydrocodone-Acetaminophen (Hydrocodone Bitartrate/AC 5-325 mg), 1 TAB PO QID PRN Hydrocodone-Acetaminophen (Hydrocodone Bitartrate/AC 5-325 mg), 1 TAB PO QID PRN Ibuprofen Micronized (Ibuprofen), 1 TAB PO Q8HPRN PRN for pain, (Reported) Methocarbamol (Methocarbamol), 750 MG PO TID PRN 39 (Time taken for discharge summary 39 minutes) Discharge Statement: "Patient was advised to return to the ER or call 911 if any headaches, dizziness, shortness of breath, chest pain, abdominal pain, bleeding, fevers, or worsening of medical condition. Patient was counseled about treatment plan, medications, possible side effects, patientverbalized understanding. All questions were answered to the best of my ability. 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 Wilson on 9-12-25, spine surgeon followed the patient and removed the drain on 11/20/2024, and cleared for discharge; patient has significant improvement in the numbness of the bilateral for extremities and now able to walk. Die Presser Dr. Wilks cleared for surgery echo 65 %ejection fraction Hypoesthesia bilateral upper and lower extremities secondary to C-spine myelopathy C-spine and T-spine syringomyelia Acute hypokalemia: Replace potassium History of asthma Acute COPD exacerbation Schizophrenia Depression Hypercholesterolemia Kelsey test negative Flu test negative A1c normal Unsteady gait: MRI brain negative, Neurology consult for Dr. Rodriguez appreciated, Chronic current marijuana abuse: Counseling Date of Service: Nov 21, 2024 Billing Provider: TAWANA SAMANO MD Common Visit Codes: [id number] DISCH DAY >30min TAWANA SAMANO MD Nov 21, 2024 09:42
[2024-11-21] MEDS ORDERED: CEPH500C PO (09:43)
--- NOTE | 2024-11-23 07:53 | ECG ---
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
== END 2024-11-21 13:25 | disposition home health service (06) | DRG 472 ==
LOC: EDBD 21:07 → ER 21:07 → OVERFLOW 11-14 05:08 → WEST WING 11-14 17:47 → TELE-WESTW 11-15 10:54
PROVIDERS: ADMIT Family Medicine; ATTEND Family Medicine
PROC: 0RB30ZZ Excision of Cervical Vertebral Disc, Open Approach (ICD-10-PCS; 2024-11-19)
PROC: 01N10ZZ Release Cervical Nerve, Open Approach (ICD-10-PCS; 2024-11-19)
PROC: 00NW0ZZ Release Cervical Spinal Cord, Open Approach (ICD-10-PCS; 2024-11-19)
PROC: 0RG10A0 Fusion of Cervical Vertebral Joint with Interbody Fusion Device, Anterior Approach, Anterior Column, Open Approach (ICD-10-PCS; principal; 2024-11-19 10:30)
DX: M48.02 Spinal stenosis, cervical region (principal); G95.0 Syringomyelia and syringobulbia; J44.1 Chronic obstructive pulmonary disease with (acute) exacerbation; M47.12 Other spondylosis with myelopathy, cervical region; E87.6 Hypokalemia; F20.9 Schizophrenia, unspecified; E78.00 Pure hypercholesterolemia, unspecified; F32.A Depression, unspecified; E78.5 Hyperlipidemia, unspecified; F12.10 Cannabis abuse, uncomplicated; M48.04 Spinal stenosis, thoracic region; Z20.822 Contact with and (suspected) exposure to COVID-19; M54.12 Radiculopathy, cervical region; M50.31 Other cervical disc degeneration, high cervical region; F41.9 Anxiety disorder, unspecified; M51.34 Other intervertebral disc degeneration, thoracic region; Z80.9 Family history of malignant neoplasm, unspecified; Z79.899 Other long term (current) drug therapy
CPT/HCPCS: 36415; 70551; 71045; 72040; 72141; 72146; 76000; 80048; 80053; 80061; 80307; 80320; 81001; 82962; 83036; 83735; 84443; 85025; 85610; 85730; 86850; 86900; 86901; 87426; 87804; 93005; 93306; 94640; 97110; 97116; 97163; 97530; G0378; J0330; J1956; J2250; J2405; J2704; J3490

== ENCOUNTER 2025-02-24 16:45 | Inpatient (IN) | payer MEDICARE, MEDICAID ==
[~2025-02-24] VITALS: Ht 180.3 cm; Wt 86.5 kg
[~2025-02-24 16:45] MED LIST changes: +CEPH500C PO; +METH-1182 PO
--- NOTE | 2025-02-24 17:50 | DVH ---
EXAM: XY LUMBAR SPINE 3 VIEW INDICATION: PAIN, NO INJURY X ONE MONTH TECHNIQUE:: 3 views of the lumbar spine COMPARISON: None FINDINGS/IMPRESSION: No radiographic evidence of an acute osseous abnormality. There is no acute fracture, osseous malalignment, or aggressive focal osseous lesion. Intervertebral disc height loss with a vacuum phenomenon at L5-S1. Trace anterolisthesis L4 over L5. Relative bony foraminal narrowing at L4-L5 and L5- S1. Bony foraminal narrowing most conspicuous at L5-S1. [id number] stool burden primarily in the ascending to transverse colon.
--- NOTE | 2025-02-24 18:30 | ED.PDOC ---
Back pain HPI HPI Comments 65-year-old male brought in by EMS chief complaint low back pain x1 month. Patient reports left-sided low back pain / describes as sharp shooting pain down left leg into left glue posterior leg posterior calf to top of foot. States has been taking [id number] medications with no relief. Reports incontinence of stool, he states unable to hold his bowels. Does note no incontinence of urine. Patient does report significant cervical history with cervical fusions and residual numbness and weakness to left and right upper extremity. States last surgery was back in November 18, 2024. Patient does deny numbness, weakness of lower extremities also notes no saddle anesthesia denies loss of bowel bladder control, he just states that he feels the bowel movement, non does state has to degroot to the bathroom in order to not soil his pants. Chief Complaint: Back Pain Time Seen by MD: 18:04 Primary Care Provider: RACHEL ORTEGA Reviewed Notes: Nurses Notes, Medications, Allergies Allergies: Coded Allergies: NO KNOWN ALLERGIES (Unverified , 11/17/22) Home Meds Active Scripts Cephalexin Monohydrate (Cephalexin) 500 Mg Cap, 1 CAP PO QID, #40 CAP Prov:TAWANA SAMANO MD 11/21/24 Methocarbamol (Methocarbamol) 750 Mg Tab, 750 MG PO TID PRN, #30 TAB Prov:TAWANA SAMANO MD 11/21/24 Hydrocodone-Acetaminophen (Hydrocodone Bitartrate/AC 5-325 mg) 1 Tab Tab, 1 TAB PO QID PRN, #40 TAB Prov:TAWANA SAMANO MD 11/21/24 Rifampin (Rifampin) 300 Mg Cap, 300 MG PO BIDPC for 45 Days, #90 CAP Prov:STEPHANIE HERNANDEZ RESIDENT 04/19/23 Pantoprazole Sodium Sesquihydr (Pantoprazole Sodium) 40 Mg Tab, 40 MG PO DAILY for 30 Days, #30 TAB Prov:STEPHANIE HERNANDEZ RESIDENT 04/19/23 Multiple Vitamin (Mvi Tab) 1 Tab Tb, 1 TAB PO DAILY for 30 Days, #30 TAB Prov:STEPHANIE HERNANDEZ RESIDENT 04/19/23 Ergocalciferol (VITAMIN D 35736 UNIT) 50,000 [place], [address] UNIT PO Q7D for 10 Days, #10 CAP Prov:STEPHANIE HERNANDEZ 04/19/23 Cyanocobalamin (Gnp Vitamin B12) 500 Mcg Tab, 1000 MCG PO DAILY for 30 Days, #60 TAB Prov:STEPHANIE HERNANDEZ 04/19/23 Ascorbic Acid (VITAMIN C TABLET) 500 Mg Tb, 500 MG PO BID for 30 Days, #60 TAB Prov:STEPHANIE HERNANDEZ 04/19/23 Acetaminophen (Acetaminophen) 325 Mg Tab, 650 MG PO Q6HP PRN for 30 Days, #240 TAB Prov:STEPHANIE HERNANDEZ 04/19/23 Hydrocodone-Acetaminophen (Hydrocodone Bitartrate/AC 5-325 mg) 1 Tab Tab, 1 TAB PO QID PRN, #60 TAB Prov:TAWANA SAMANO MD 02/10/23 Reported Medications Quetiapine Fumerate (QUETIAPINE FUMARATE) 400 Mg Tab, 2 TAB PO HS 01/02/23 Ibuprofen Micronized (Ibuprofen) 800 Mg Tab, 1 TAB PO Q8HPRN PRN for pain 01/02/23 Albuterol Sulfate (Ventolin) 2.5 Mg/3 Ml Nb, 2.5 MG INH Q6HP, INH 11/18/22 Simvastatin (Simvastatin) 40 Mg Tab, 40 MG PO DAILY for 30 Days 11/18/22 Sertraline Hcl (Zoloft) 100 Mg Tab, 200 MG PO DAILY, TAB 11/18/22 Information Source: Patient Mode of Arrival: EMS Past Medical History PAST MEDICAL HISTORY: Arthritis, Asthma, COPD, Schizophrenia Surgical History: Denies all surgeries Surgical History (Other): Cervical fusions 11/18/2024 Family History Family History: Reviewed,noncontributory to illness Social History Smoker: Non-Smoker Alcohol: Denies ETOH Use Drugs: Marijuana Lives In: Home All Other Systems: Reviewed and Negative (See HPI) Physical Exam General Appearance: No Apparent Distress, Normal HEENT: Pharynx Normal Neck: Full Range of Motion, Non-Tender Respiratory: Lungs Clear, No Respiratory Distress, Normal Breath Sounds Cardiovascular: No Edema, No JVD, No Murmur, No Gallop, Normal Peripheral Pulses, Regular Rate/Rhythm Breast Exam: Deferred Gastrointestinal: No Organomegaly, Non Tender, No Pulsatile Mass, Normal Bowel Sounds, Soft Genitalia: Deferred Pelvic: Deferred Rectal: Deferred Extremities: Normal range of motion, No pedal edema Musculoskeletal : Location: Bilateral Extremity Location: Back (Moderate tenderness palpated over lower back musculature and L4 through L5 spine No noted crepitus or step-offs along cervical thoracic and lumbar spine. Strength sensory and motion intact. Positive straight leg test left side negative on right. Positive pedal pulses) Apperance: Normal Neurologic: Alert, television camera operator II-XII nml as Tested, No Motor Deficits, Normal Affect, Normal Mood, No Sensory Deficits Cerebellar Function: Normal Reflexes: Normal Skin: Dry, Normal Color, Warm Lymphatic: No Adenopathy Was a procedure done? Was a procedure done?: No Back Pain Differential Dx Differential Diagnosis: Fracture, Musculoskeletal Pain X-Ray, Labs, Meds, VS Vital Signs Date Time Temp Pulse Resp B/P (MAP) Pulse Ox O2 Delivery O2 Flow Rate FiO2 02/24/25 20:12 Room Air* 0 21 02/24/25 20:12 98.0 67 12 143/82 (102) 97 98.0 02/24/25 19:41 98.3 68 20 131/78 (95) 96 98.3 02/24/25 19:01 65 15 138/83 02/24/25 17:34 98.6 81 18 169/91 (117) 98 98.6 02/24/25 17:34 81 18 98 Room Air 02/24/25 16:47 97.6 81 18 169/91 96 97.6 Lab Test 02/24/25 18:38 02/24/25 18:36 Range/Units White Blood Count 6.9 4.4-10.8 10^3/uL Red Blood Count 3.53 L 4.5-5.90 10^6/uL Hemoglobin 11.6 L 13.5-17.5 g/dL Hematocrit 35.1 L 41.0-53.0 % Mean Corpuscular Volume 99.5 80.0-100.0 fL Mean Corpuscular Hemoglobin 33.0 H 28.0-32.0 pg Mean Corpuscular Hemoglobin Concent 33.1 32.0-36.0 g/dL Red Cell Distribution Width 14.1 11.8-14.3 % Platelet Count 196 140-450 10^3/uL Mean Platelet Volume 7.7 6.9-10.8 fL Neutrophils (%) (Auto) 71.6 37.0-80.0 % Lymphocytes (%) (Auto) 16.3 10.0-50.0 % Monocytes (%) (Auto) 7.4 0.0-12.0 % Eosinophils (%) (Auto) 4.4 0.0-7.0 % Basophils (%) (Auto) 0.3 0.0-2.0 % Neutrophils # (Auto) 5.0 1.6-8.6 10 ^3/uL Lymphocytes # (Auto) 1.1 0.4-5.4 10 ^3/uL Monocytes # (Auto) 0.5 0-1.3 10 ^3/uL Eosinophils # (Auto) 0.3 0-0.8 10 ^3/uL Basophils # (Auto) 0 0-0.2 10 ^3/uL Nucleated Red Blood Cells 0.0 % Sodium Level 144 136-145 mmol/L Potassium Level 4.0 3.5-5.1 mmol/L Chloride Level 116 H 98-107 mmol/L Carbon Dioxide Level 21 20-31 mmol/L Anion Gap 7 5-15 Blood Urea Nitrogen 13 9-23 mg/dL Creatinine 0.94 0.700-1.30 mg/dL Glomerular Filtration Rate Calc 91 >90 mL/min BUN/Creatinine Ratio 13.8 10.0-20.0 Serum Glucose 89 74-106 mg/dL Calcium Level 8.8 8.7-10.4 mg/dL Total Bilirubin 0.2 0.2-1.0 mg/dL Aspartate Amino Transferase (AST) 19 13-40 U/L Alanine Aminotransferase (ALT) 23 7-40 U/L Alkaline Phosphatase 68 46-116 U/L Total Protein 6.6 5.7-8.2 g/dL Albumin 4.1 3.2-4.8 g/dL Urine Color Light-yellow Yellow Urine Clarity Clear Clear Urine pH 6.0 5.0-9.0 Urine Specific [place] 1.021 1.001-1.035 Urine Protein Trace H Negative Urine Ketones Negative Negative Urine Blood Negative Negative /uL Urine Nitrite Negative Negative Urine Bilirubin Negative Negative Urine Urobilinogen Normal Negative mg/dL Urine Leukocyte Esterase Negative Negative /uL Urine RBC 1 0 - 3 /hpf Urine Microscopic WBC 1 0-3 /HPF Urine Squamous Epithelial Cells Few <5 /hpf Urine Bacteria None seen None Seen /hpf Urine Glucose Normal Normal mg/dL Current Medications Medications (Trade) Dose Ordered Sig/Maisha Route Start Time Stop Time Status Last Admin Morphine Sulfate 4 mg ONCE ONCE IV 02/24/25 18:45 02/24/25 18:46 DC 02/24/25 19:01 Ondansetron HCl (Zofran) 4 mg ONCE ONCE IV 02/24/25 18:45 02/24/25 18:46 DC 02/24/25 19:01 Acetaminophen (Tylenol Tablet) 650 mg Q6HP PRN PO 02/24/25 21:00 02/24/25 23:46 X-Ray, Labs, Meds, VS Comment FINDINGS: No evidence of definite acute fracture, spinal dislocation, or significant appearing acute subluxation is seen. Severe degenerative disc disease at L5-S1. Moderate degenerative disc disease at L4-5. Advanced facet degenerative changes within the lower lumbar spine. Moderate diffuse posterior disc bulging at L3-4 and L4-5 likely resulting in a moderate degree of spinal stenosis at L4-5, poorly assessed on CT. Moderate to severe bilateral foraminal narrowing at L3-4, L4-5, and L5-S1. IMPRESSION: Advanced degenerative disc disease and facet degenerative changes likely resulting in significant central canal and foraminal stenosis, better assessed with MRI. Patient presented with lower back radiculopathy pain that was concerning for possible cauda equia. I ordered and reviewed the result of at least 3 labs including a CBC, BMP, and Urinalysis. 2. CT lumbar spine was ordered and resulted, impression shows significant central canal and foraminal stenosis the levels of L3-L4, L4-L5, and L5-S. This patient has a high risk of morbidity due to further diagnostic testing or treatment and may suffer from an acute cauda equina injury. Workup reveals intractable low back pain and patient should be admitted for further workup, urology consult and lumbar spine MRI in a.m.. Images Reviewed?: Images reviewed and evaluated by me Time of 1ST Reevaluation: 18:04 Reevaluation 1ST: Unchanged Time of 2ND Reevaluation: 19:22 Reevaluation 2ND: Unchanged Patient Education/Counseling: Diagnosis, Treatment Family Education/Counseling: No Family Present SEPSIS Sepsis Screen Date sepsis recognized/suspect: Feb 24, 2025 Time Sepsis recognized/suspect: 1638 Recent Procedure: No On Antibiotic Therapy: No Respiratory Rate >20: No Heart Rate >90: No Temp<36 C (96.8 F) or >38.3 C: No SBP <90 or MAP <65 mmHG: No New Acute Mental Status Change: No Is the patient on CPAP, BIPAP,: No Physician Orders Lumbar Spine 3 View (02/24/25 17:10) Ls Spine Wo Contrast (02/24/25 18:31) Heplock Iv (02/24/25 ) Quetiapine Fumarate Tablet (Seroquel Tab (02/24/25 22:00) Atorvastatin (Lipitor) (02/24/25 22:00) Albuterol Medneb (Ventolin Medneb) (02/24/25 21:00) Sertraline Hcl (Zoloft) (02/25/25 10:00) Allergies (02/24/25 20:49) Code Status (02/24/25 20:49) Sodium Chloride Lock (Saline Lock Ns) (02/24/25 22:00) Oxygen Per Hour (02/24/25 20:49) Hydrocodone-Acet 5/325mg Tab ([place] 5/32 (02/24/25 21:00) Ondansetron Hcl (Zofran) (02/24/25 21:00) Docusate Sodium Capsule (Colace Capsule) (02/24/25 21:00) Complete Blood Count (02/25/25 04:00) Comprehensive Metabolic Panel (02/25/25 04:00) Cardiac Diet-2gna,Lofat,Lochol (02/25/25 Breakfast) Condition: Serious (02/24/25 20:49) Acetaminophen Tablet (Tylenol Tablet) (02/24/25 21:00) Bedrest With Bathroom Privileg (02/24/25 20:49) Sequential Compression Device (02/24/25 ) Vital Signs Date Time Temp Pulse Resp B/P (MAP) Pulse Ox O2 Delivery O2 Flow Rate FiO2 02/24/25 20:12 Room Air* 0 21 02/24/25 20:12 98.0 67 12 143/82 (102) 97 98.0 02/24/25 19:41 98.3 68 20 131/78 (95) 96 98.3 02/24/25 19:01 65 15 138/83 02/24/25 17:34 98.6 81 18 169/91 (117) 98 98.6 02/24/25 17:34 81 18 98 Room Air 02/24/25 16:47 97.6 81 18 169/91 96 97.6 Laboratory Tests Test 02/24/25 18:38 White Blood Count 6.9 10^3/uL (4.4-10.8) Medications Medications Dose Ordered Sig/Maisha Route Start Time Stop Time Status Last Admin Dose Admin Acetaminophen 650 mg Q6HP PRN PO 02/24/25 21:00 02/24/25 23:46 Morphine Sulfate 4 mg ONCE ONCE IV 02/24/25 18:45 02/24/25 18:46 DC 02/24/25 19:01 Ondansetron HCl 4 mg ONCE ONCE IV 02/24/25 18:45 02/24/25 18:46 DC 02/24/25 19:01 Departure 1 Departure Time of Disposition: 19:22 Impression: Primary Impression: Lumbar radiculopathy Additional Impressions: Intractable back pain Lumbar canal stenosis Qualified Codes: M48.061 - Spinal stenosis, lumbar region without neurogenic claudication Neuroforaminal stenosis of lumbar spine Disposition: ADMITTED INPATIENT Condition: Serious Discharged With: Self Critical Care Note Critical Care Time?: No Stability Stability form required: MEGAN Payan Feb 24, 2025 18:30
[2025-02-24 18:57] LABS: Hematocrit 35.1 % (41.0-53.0); Hemoglobin 11.6 g/dL (13.5-17.5); Mean Corpuscular Hemoglobin 33.0 pg (28.0-32.0); Mean Corpuscular Volume 99.5 fL (80.0-100.0); Nucleated Red Blood Cells % 0.0 %
[2025-02-24] MEDS: ONDANSETRON HCL 4 MG/2 ML VIAL IV ONE (19:01)
[2025-02-24] MEDS: MORPHINE SULFATE 4 MG/ML SYR/VIAL IV ONE (19:01)
[2025-02-24 19:16] LABS: Alanine Aminotransferase 23 U/L (7-40); Albumin 4.1 g/dL (3.2-4.8); Alkaline Phosphatase 68 U/L (46-116); Anion Gap 7 (5-15); BUN/Creatinine Ratio 13.8 (10.0-20.0); Blood Urea Nitrogen 13 mg/dL (9-23); Calcium 8.8 mg/dL (8.7-10.4); Carbon Dioxide 21 mmol/L (20-31); Glucose 89 mg/dL (74-106); Potassium 4.0 mmol/L (3.5-5.1); Sodium 144 mmol/L (136-145); Total Protein 6.6 g/dL (5.7-8.2)
--- NOTE | 2025-02-24 19:16 | DVH ---
EXAM: CT LS SPINE WO CONTRAST HISTORY: l-5 S1 ridiculopathy lose of bowel control COMPARISON: XY LUMBAR SPINE 3 VIEW on DOS: 02/24/25 CTDIvol 37.92 mGy, DLP 1201.65 mGy*cm. TECHNIQUE: Multiple axial CT images of the spine were obtained using bone algorithm. Axial and coronal reformatting was done. Bone and soft tissue windows were reviewed. FINDINGS: No evidence of definite acute fracture, spinal dislocation, or significant appearing acute subluxation is seen. Severe degenerative disc disease at L5-S1. Moderate degenerative disc disease at L4-5. Advanced facet degenerative changes within the lower lumbar spine. Moderate diffuse posterior disc bulging at L3-4 and L4-5 likely resulting in a moderate degree of spinal stenosis at L4-5, poorly assessed on CT. Moderate to severe bilateral foraminal narrowing at L3-4, L4-5, and L5-S1. IMPRESSION: Advanced degenerative disc disease and facet degenerative changes likely resulting in significant central canal and foraminal stenosis, better assessed with MRI.
[2025-02-24 19:17] LABS: Bilirubin, Total 0.2 mg/dL (0.2-1.0); Chloride 116 mmol/L (98-107)
[2025-02-24] MEDS ORDERED: HYDROcodone-ACET 5/325MG TAB PO PRN (21:00)
[2025-02-24] MEDS ORDERED: DOCUSATE SOD 100 MG CAP PO PRN (21:00)
[2025-02-24] MEDS ORDERED: ONDANSETRON HCL 4 MG/2 ML VIAL IV PRN (21:00)
[2025-02-24 21:15] LABS: Urine Protein, UAD TRACE (Negative)
[2025-02-24] MEDS ORDERED: NITROGLYCERIN 0.4 MG SL TAB SL PRN (21:30)
--- NOTE | 2025-02-24 21:33 | DVHHP2 ---
History of Present Illness Reason for Visit: Intractable back pain History of Present Illness The patient is a 65-year-old male with past medical history of asthma, COPD, arthritis, schizophrenia, depression, and hyperlipidemia who presented to [facility] ED with complaint of back pain. Patient reports he has been e xperiencing back pain, rating 7/10 numeric scale, getting worse that prompted this visit. Patient was seen and evaluated in the ED, laboratory data shows WBC 6.9, hemoglobin 11.6, hematocrit 35.1, platelets 196, sodium 144, potassium 4.0, BUN 13, creatinine 0.94, GFR 91, glucose 89, calcium 8.8, blood pressure 142/82, heart rate 67, temperature 98.0 F, O2 saturation 97% on room air. Lumbar spine CT revealing advanced degenerative disc disease and facet degenerative changes likely resulting in significant central canal and foraminal stenosis. Please see medication orders section in the computer. On my assessment, patient denied ches t pain, no headache, dizziness, diaphoresis, shortness of breaths, no abdominal pain, diarrhea, nausea, vomiting, fever, no chills. Patient was admitted for further evaluation and medical management. Past Medical History Depression, Arthritis, Asthma, COPD, Schizophrenia Past Surgical History Denies all surgeries Family History Reviewed, noncontributory to the management of this case. Past Social History The patient lives at home, denies smoking, alcohol or illicit drugs abuse. Review of Systems Constitutional: Yes: Weakness; No: Fever, Chills, Sweats, Malaise, Other Eyes: No: Pain, Vision change, Conjunctivae inflammation, Eyelid inflammation, Other, Redness ENT: No: Ear pain, Ear discharge, Nose pain, Nose discharge, Nose congestion, Mouth pain, Mouth swelling, Throat pain, Throat swelling, Other Respiratory: No: Cough, Dry, Shortness of breath, SOB with excertion, Wheezing, Hemoptysis, Pleuritic Pain, Sputum, Wheezing, Other Cardiovascular: No: Chest Pain, Palpitations, Orthopnea, Paroxysmal Noc. Dyspnea, Edema, Lt Headedness, Other Gastrointestinal: No: Nausea, Vomiting, Abdominal Pain, Diarrhea, Constipation, Melena, Hematochezia, Other Genitourinary: No Dysuria, No Frequency, No Incontinence, No Hematuria, No Retention, No Other Musculoskeletal: back pain; No: other, neck pain, shoulder pain, arm pain, hand pain, leg pain, foot pain Skin: No: Rash, Lesions, Jaundice, Bruising, Other Neurological: No: Weakness, Numbness, Incoordination, Change in speech, Confusion, Seizures, Other Allergies: Coded Allergies: NO KNOWN ALLERGIES (Unverified , 11/17/22) Medications Current Medications Medications Dose Ordered Sig/Maisha Route Start Time Stop Time Status Last Admin Dose Admin Quetiapine Fumarate 100 mg HS PO 02/24/25 22:00 Atorvastatin Calcium 20 mg HS PO 02/24/25 22:00 Albuterol 2.5 mg Q4HPRN PRN NEB 02/24/25 21:00 Sertraline HCl 100 mg DAILY PO 02/25/25 10:00 Sodium Chloride 10 ml Q8HR IV 02/24/25 22:00 Acetaminophen/ Hydrocodone Bitart 1 tab Q4HP PRN PO 02/24/25 21:00 Ondansetron HCl 4 mg Q4HP PRN IV 02/24/25 21:00 Docusate Sodium 100 mg BIDPRN PRN PO 02/24/25 21:00 Acetaminophen 650 mg Q6HP PRN PO 02/24/25 21:00 Exam Vital Signs Vital Signs Date Time Temp Pulse Resp B/P (MAP) Pulse Ox O2 Delivery O2 Flow Rate FiO2 02/24/25 20:12 Room Air* 0 21 02/24/25 20:12 98.0 67 12 143/82 (102) 97 98.0 General Appearance: Alert, Oriented X3, Cooperative, No acute distress HEENT: Atraumatic, PERRLA, EOMI, Mucous membr. moist/pink Respiratory: Normal air movement Cardiovascular: Regular rate, Normal S1, Normal S2, No murmurs Abdominal: Normal bowel sounds, Soft, No tenderness, No hepatospenomegaly, No masses Extremities: No clubbing, No cyanosis, No edema, Normal pulses, Other (Lower back tenderness) Skin: No rashes, No significant lesion Neuro: Normal speech, Normal tone, Sensation intact, Cranial nerves 3-12 NL, Reflexes 2+, Other (Generalized weakness) Psych/Mental Status: Mental status NL, Mood NL Labs/Xrays Labs Test 02/24/25 18:38 02/24/25 18:36 Range/Units White Blood Count 6.9 4.4-10.8 10^3/uL Red Blood Count 3.53 L 4.5-5.90 10^6/uL Hemoglobin 11.6 L 13.5-17.5 g/dL Hematocrit 35.1 L 41.0-53.0 % Mean Corpuscular Volume 99.5 80.0-100.0 fL Mean Corpuscular Hemoglobin 33.0 H 28.0-32.0 pg Mean Corpuscular Hemoglobin Concent 33.1 32.0-36.0 g/dL Red Cell Distribution Width 14.1 11.8-14.3 % Platelet Count 196 140-450 10^3/uL Mean Platelet Volume 7.7 6.9-10.8 fL Neutrophils (%) (Auto) 71.6 37.0-80.0 % Lymphocytes (%) (Auto) 16.3 10.0-50.0 % Monocytes (%) (Auto) 7.4 0.0-12.0 % Eosinophils (%) (Auto) 4.4 0.0-7.0 % Basophils (%) (Auto) 0.3 0.0-2.0 % Neutrophils # (Auto) 5.0 1.6-8.6 10 ^3/uL Lymphocytes # (Auto) 1.1 0.4-5.4 10 ^3/uL Monocytes # (Auto) 0.5 0-1.3 10 ^3/uL Eosinophils # (Auto) 0.3 0-0.8 10 ^3/uL Basophils # (Auto) 0 0-0.2 10 ^3/uL Nucleated Red Blood Cells 0.0 % Sodium Level 144 136-145 mmol/L Potassium Level 4.0 3.5-5.1 mmol/L Chloride Level 116 H 98-107 mmol/L Carbon Dioxide Level 21 20-31 mmol/L Anion Gap 7 5-15 Blood Urea Nitrogen 13 9-23 mg/dL Creatinine 0.94 0.700-1.30 mg/dL Glomerular Filtration Rate Calc 91 >90 mL/min BUN/Creatinine Ratio 13.8 10.0-20.0 Serum Glucose 89 74-106 mg/dL Calcium Level 8.8 8.7-10.4 mg/dL Total Bilirubin 0.2 0.2-1.0 mg/dL Aspartate Amino Transferase (AST) 19 13-40 U/L Alanine Aminotransferase (ALT) 23 7-40 U/L Alkaline Phosphatase 68 46-116 U/L Total Protein 6.6 5.7-8.2 g/dL Albumin 4.1 3.2-4.8 g/dL Urine Color Light-yellow Yellow Urine Clarity Clear Clear Urine pH 6.0 5.0-9.0 Urine Specific [place] 1.021 1.001-1.035 Urine Protein Trace H Negative Urine Ketones Negative Negative Urine Blood Negative Negative /uL Urine Nitrite Negative Negative Urine Bilirubin Negative Negative Urine Urobilinogen Normal Negative mg/dL Urine Leukocyte Esterase Negative Negative /uL Urine RBC 1 0 - 3 /hpf Urine Microscopic WBC 1 0-3 /HPF Urine Squamous Epithelial Cells Few <5 /hpf Urine Bacteria None seen None Seen /hpf Urine Glucose Normal Normal mg/dL PATIENT: HUMBERTO PÉREZ ACCT: [id number] UNIT: [id number] : 1960 LOC: ER ROOM / BED: / AGE / SEX: 65 / M ADM STATUS: REG ER SERVICE 183 ORDERING PHYSICIAN: MEGAN PEREZ PROCEDURE(s): LS2CT - LS SPINE WO CONTRAST REASON: l-5 S1 ridiculopathy lose of bowel control ORDER NUMBER(s): [id number], ACCESSION NUMBER(s): [id number] EXAM: CT LS SPINE WO CONTRAST HISTORY: l-5 S1 ridiculopathy lose of bowel control COMPARISON: XY LUMBAR SPINE 3 VIEW on DOS: 02/24/25 CTDIvol 37.92 mGy, DLP 1201.65 mGy*cm. TECHNIQUE: Multiple axial CT images of the spine were obtained using bone algorithm. Axial and coronal reformatting was done. Bone and soft tissue windows were reviewed. FINDINGS: No evidence of definite acute fracture, spinal dislocation, or significant appearing acute subluxation is seen. Severe degenerative disc disease at L5-S1. Moderate degenerative disc disease at L4-5. Advanced facet degenerative changes within the lower lumbar spine. Moderate diffuse posterior disc bulging at L3-4 and L4-5 likely resulting in a moderate degree of spinal stenosis at L4-5, poorly assessed on CT. Moderate to severe bilateral foraminal narrowing at L3-4, L4-5, and L5-S1. IMPRESSION: Advanced degenerative disc disease and facet degenerative changes likely resulting in significant central canal and foraminal stenosis, better assessed with MRI. ORDERING PHYSICIAN: ETELVINA REED PROCEDURE(s): LUMB2 - LUMBAR SPINE 3 VIEW REASON: PAIN, NO INJURY X ONE MONTH ORDER NUMBER(s): [id number], ACCESSION NUMBER(s): [id number] EXAM: XY LUMBAR SPINE 3 VIEW INDICATION: PAIN, NO INJURY X ONE MONTH TECHNIQUE:: 3 views of the lumbar spine COMPARISON: None FINDINGS/IMPRESSION: No radiographic evidence of an acute osseous abnormality. There is no acute fracture, osseous malalignment, or aggressive focal osseous lesion. Intervertebral disc height loss with a vacuum phenomenon at L5-S1. Trace anterolisthesis L4 over L5. Relative bony foraminal narrowing at L4-L5 and L5- S1. Bony foraminal narrowing most conspicuous at L5-S1. [id number] stool burden primarily in the ascending to transverse colon. SEPSIS Sepsis Screen Date sepsis recognized/suspect: Feb 24, 2025 Time Sepsis recognized/suspect: 2011 Recent Procedure: No On Antibiotic Therapy: No Respiratory Rate >20: No Heart Rate >90: No Temp<36 C (96.8 F) or >38.3 C: No SBP <90 or MAP <65 mmHG: No New Acute Mental Status Change: No Is the patient on CPAP, BIPAP,: No Physician Orders Lumbar Spine 3 View (02/24/25 17:10) Ls Spine Wo Contrast (02/24/25 18:31) Heplock Iv (02/24/25 ) Quetiapine Fumarate Tablet (Seroquel Tab (02/24/25 22:00) Atorvastatin (Lipitor) (02/24/25 22:00) Albuterol Medneb (Ventolin Medneb) (02/24/25 21:00) Sertraline Hcl (Zoloft) (02/25/25 10:00) Allergies (02/24/25 20:49) Code Status (02/24/25 20:49) Sodium Chloride Lock (Saline Lock Ns) (02/24/25 22:00) Oxygen Per Hour (02/24/25 20:49) Hydrocodone-Acet 5/325mg Tab ([place] 5/32 (02/24/25 21:00) Ondansetron Hcl (Zofran) (02/24/25 21:00) Docusate Sodium Capsule (Colace Capsule) (02/24/25 21:00) Complete Blood Count (02/25/25 04:00) Comprehensive Metabolic Panel (02/25/25 04:00) Cardiac Diet-2gna,Lofat,Lochol (02/25/25 Breakfast) Condition: Serious (02/24/25 20:49) Acetaminophen Tablet (Tylenol Tablet) (02/24/25 21:00) Bedrest With Bathroom Privileg (02/24/25 20:49) Sequential Compression Device (02/24/25 ) Vital Signs Date Time Temp Pulse Resp B/P (MAP) Pulse Ox O2 Delivery O2 Flow Rate FiO2 02/24/25 20:12 Room Air* 0 21 02/24/25 20:12 98.0 67 12 143/82 (102) 97 98.0 02/24/25 19:41 98.3 68 20 131/78 (95) 96 98.3 02/24/25 19:01 65 15 138/83 02/24/25 17:34 98.6 81 18 169/91 (117) 98 98.6 02/24/25 17:34 81 18 98 Room Air 02/24/25 16:47 97.6 81 18 169/91 96 97.6 Laboratory Tests Test 02/24/25 18:38 White Blood Count 6.9 10^3/uL (4.4-10.8) Medications Medications Dose Ordered Sig/Maisha Route Start Time Stop Time Status Last Admin Dose Admin Morphine Sulfate 4 mg ONCE ONCE IV 02/24/25 18:45 02/24/25 18:46 DC 02/24/25 19:01 4 MG Ondansetron HCl 4 mg ONCE ONCE IV 02/24/25 18:45 02/24/25 18:46 DC 02/24/25 19:01 4 MG Assessment/Plan Assessment/Plan Lumbar canal stenosis Lumbar radiculopathy Intractable back pain Spinal stenosis, lumbar region without neurogenic claudication Neuroforaminal stenosis of lumbar spine Plan 1. Admit to med surge unit 2. Breathing treatment 3. Pain control management 4. Management of fluids and electrolytes 5. Consultation for Neurology/hospitalist 6. Diagnostic tests lumbar spine CT 7. DVT prophylaxis-on SCDs 8. Repeat labs CBC, CMP in a.m. 9. Continue with current medical management 10. Treatment plan discussed with patient and RN. Patient verbalized understanding. Plan discussed with: Patient, Other (RN) My Orders Orders - CAMPBELL COWAN DNP Procedure Category Date Status Time Quetiapine Fumarate PHA 02/24/25 In Process Tablet (Seroquel Tab 22:00 Atorvastatin (Lipitor) PHA 02/24/25 In Process 22:00 Albuterol Medneb PHA 02/24/25 In Process (Ventolin Medneb) 21:00 Sertraline Hcl PHA 02/25/25 In Process (Zoloft) 10:00 Allergies KATIE 02/24/25 In Process 20:49 Code Status CODE 02/24/25 Transmitted 20:49 Sodium Chloride Lock PHA 02/24/25 In Process (Saline Lock Ns) 22:00 Oxygen Per Hour RT 02/24/25 Transmitted 20:49 Hydrocodone-Acet PHA 02/24/25 In Process 5/325mg Tab ([place] 21:00 Ondansetron Hcl PHA 02/24/25 In Process (Zofran) 21:00 Docusate Sodium PHA 02/24/25 In Process Capsule (Colace 21:00 Complete Blood Count LAB 02/25/25 Verified 04:00 Comprehensive LAB 02/25/25 Verified Metabolic Panel 04:00 Cardiac DIET 02/25/25 Transmitted Diet-2gna,Lofat,Lochol Breakfast Condition: Serious KATIE 02/24/25 In Process 20:49 Acetaminophen Tablet PHA 02/24/25 In Process (Tylenol Tablet) 21:00 Bedrest With Bathroom KATIE 02/24/25 In Process Privileg 20:49 Sequential KATIE 02/24/25 In Process Compression Device Problem List: (1) Lumbar canal stenosis (2) Lumbar radiculopathy (3) Intractable back pain (4) Spinal stenosis, lumbar region without neurogenic claudication (5) Neuroforaminal stenosis of lumbar spine Date of Service: Feb 24, 2025 Billing Provider: CAMPBELL COWAN DNP Common Visit Codes: [id number] INP/OBS CARE (HIGH) CAMPBELL COWAN DNP Feb 24, 2025 21:33
[2025-02-24 22:00] VITALS: BP 143/81; PULSE 65; RESP 20; O2SAT 94
[2025-02-24] MEDS ORDERED: MORPHINE SULFATE 4 MG/ML SYR/VIAL IV PRN (22:00)
[2025-02-24] MEDS: SODIUM CHLOR 0.9% PF (SALINE LOCK) 10ML VIAL/SYR IV SCH (23:45)
[2025-02-24] MEDS: ATORVASTATIN 20 MG TAB PO SCH (23:45)
[2025-02-24] MEDS: ACETAMINOPHEN 325 MG TAB PO PRN (23:46)
[2025-02-25] VITALS (12 sets, daily range): BP systolic 122–141; BP diastolic 70–89; PULSE 65–86; RESP 16–20; TEMP 97.4–98.9; O2SAT 94–100
[2025-02-25 05:40] LABS: Hematocrit 35.9 % (41.0-53.0); Hemoglobin 12.2 g/dL (13.5-17.5); Mean Corpuscular Hemoglobin 33.2 pg (28.0-32.0); Mean Corpuscular Volume 98.1 fL (80.0-100.0); Nucleated Red Blood Cells % 0.1 %
[2025-02-25 05:57] LABS: Alanine Aminotransferase 23 U/L (7-40); Alkaline Phosphatase 63 U/L (46-116); Anion Gap 8 (5-15); BUN/Creatinine Ratio 17.3 (10.0-20.0); Blood Urea Nitrogen 14 mg/dL (9-23); Calcium 9.1 mg/dL (8.7-10.4); Carbon Dioxide 24 mmol/L (20-31); Glucose 85 mg/dL (74-106); Potassium 3.8 mmol/L (3.5-5.1); Total Protein 6.6 g/dL (5.7-8.2)
[2025-02-25 05:58] LABS: Albumin 4.1 g/dL (3.2-4.8)
[2025-02-25 06:00] LABS: Bilirubin, Total 0.2 mg/dL (0.2-1.0); Chloride 114 mmol/L (98-107); Sodium 146 mmol/L (136-145)
[2025-02-25] MEDS: SERTRALINE HCL 50 MG TAB PO SCH (09:13)
--- NOTE | 2025-02-25 11:48 | DVHPN2 ---
Reviewed: Care Plan Changes from previous H/P or p: No Changes Eyes: No Pain, No Vision change, No Conjunctivae inflammation, No Eyelid inflammation, No Other, No Redness ENT: No Ear pain, No Ear discharge, No Nose pain, No Nose discharge, No Nose congestion, No Mouth pain, No Mouth swelling, No Throat pain, No Throat swelling, No Other Cardiovascular: No Chest Pain, No Palpitations, No Orthopnea, No Paroxysmal Noc. Dyspnea, No Edema, No Lt Headedness, No Other Respiratory: No Cough, No Dry, No Shortness of breath, No SOB with excertion, No Wheezing, No Hemoptysis, No Pleuritic Pain, No Sputum, No Other Gastrointestinal: No Nausea, No Vomiting, No Abdominal Pain, No Diarrhea, No Constipation, No Melena, No Hematochezia, No Other Genitourinary: No Dysuria, No Frequency, No Incontinence, No Hematuria, No Retention, No Other Musculoskeletal: No other, No neck pain, No shoulder pain, No arm pain; back pain; No hand pain, No leg pain, No foot pain Skin: No Rash, No Lesions, No Jaundice, No Bruising, No Other Objective Vitals Vital Signs Date Time Temp Pulse Resp B/P (MAP) Pulse Ox O2 Delivery O2 Flow Rate FiO2 02/25/25 10:00 96 Room Air* 0 21 02/25/25 09:00 97.4 71 18 130/77 (94) 97.4 Intake/Output Intake and Output 02/25/25 07:00 Intake Total 250 ml Balance 250 ml Intake Oral 250 ml # Voids 2 Medications Current Medications Medications Dose Ordered Sig/Maisha Route Start Time Stop Time Status Last Admin Dose Admin Quetiapine Fumarate 100 mg HS PO 02/24/25 22:00 02/24/25 23:46 100 MG Atorvastatin Calcium 20 mg HS PO 02/24/25 22:00 02/24/25 23:45 20 MG Albuterol 2.5 mg Q4HPRN PRN NEB 02/24/25 21:00 Sertraline HCl 100 mg DAILY PO 02/25/25 10:00 02/25/25 09:13 100 MG Sodium Chloride 10 ml Q8HR IV 02/24/25 22:00 02/25/25 06:14 10 ML Acetaminophen/ Hydrocodone Bitart 1 tab Q4HP PRN PO 02/24/25 21:00 Ondansetron HCl 4 mg Q4HP PRN IV 02/24/25 21:00 Docusate Sodium 100 mg BIDPRN PRN PO 02/24/25 21:00 Acetaminophen 650 mg Q6HP PRN PO 02/24/25 21:00 02/24/25 23:46 650 MG Nitroglycerin 0.4 mg Q5MINP PRN SL 02/24/25 21:30 Morphine Sulfate 2 mg Q30M PRN IV 02/24/25 22:00 Laboratory Results Laboratory Tests 02/25/25 04:35 Chemistry Test 02/24/25 18:38 02/25/25 04:35 Albumin 4.1 g/dL (3.2-4.8) 4.1 g/dL (3.2-4.8) Calcium Level 8.8 mg/dL (8.7-10.4) 9.1 mg/dL (8.7-10.4) Total Protein 6.6 g/dL (5.7-8.2) 6.6 g/dL (5.7-8.2) LFT Test 02/24/25 18:38 02/25/25 04:35 Alanine Aminotransferase (ALT) 23 U/L (7-40) 23 U/L (7-40) Alkaline Phosphatase 68 U/L (46-116) 63 U/L (46-116) Aspartate Amino Transferase (AST) 19 U/L (13-40) 19 U/L (13-40) Total Bilirubin 0.2 mg/dL (0.2-1.0) 0.2 mg/dL (0.2-1.0) Urinalysis Test 02/24/25 18:36 Urine Color Light-yellow (Yellow) Urine Clarity Clear (Clear) Urine pH 6.0 (5.0-9.0) Urine Specific [place] 1.021 (1.001-1.035) Urine Protein Trace (Negative) H Urine Ketones Negative (Negative) Urine Blood Negative /uL (Negative) Urine Nitrite Negative (Negative) Urine Bilirubin Negative (Negative) Urine Urobilinogen Normal mg/dL (Negative) Urine Leukocyte Esterase Negative /uL (Negative) Urine RBC 1 /hpf (0 - 3) Urine Microscopic WBC 1 /HPF (0-3) Urine Squamous Epithelial Cells Few /hpf (<5) Urine Bacteria None seen /hpf (None Seen) Urine Glucose Normal mg/dL (Normal) Labs and/or images reviewed: Labs reviewed by me, Image(s) reviewed by me Assessment/Plan Assessment/Plan Acute severe low back pain: L4-5 lumbar spinal canal stenosis: MRI ordered consult for Dr. 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 Wilson on 11-19-24, s Ejection fraction 65 % C-spine and T-spine syringomyelia Asthma COPD Depression Schizophrenia Hypercholesterolemia Chronic current marijuana abuse: Counseled Time spent 70 minutes Advanced care planning time 20 minutes Patient is full code Plan discussed with: Patient Date of Service: Feb 25, 2025 Billing Provider: TAWANA SAMANO MD Common Visit Codes: [id number] CARE 30-74 MIN TAWANA SAMANO MD Feb 25, 2025 11:48
[2025-02-25] MEDS: HYDROcodone-ACET 10/325MG TAB PO SCH (12:00)
--- NOTE | 2025-02-25 13:21 | DVH ---
EXAM: MRI LUMBAR SPINE WO CONTRAST CLINICAL HISTORY: Severe low back pain COMPARISON: CT LS SPINE WO CONTRAST on DOS: 02/24/25, XY LUMBAR SPINE 3 VIEW on DOS: 02/24/25 TECHNIQUE: MRI imaging of the lumbar was performed on a MRI imaging system without intravenous contrast. FINDINGS: For the purposes of this examination, the last well-formed intervertebral disc space will be designated as L5-S1. By this convention, the conus medullaris terminates at the L1 level. The vertebral body heights are well-maintained without evidence of fracture. There are multilevel degenerative changes of the lumbar spine characterized by disc desiccation, loss of intervertebral disc height, and endplate osteophytosis. There are Modic type 2 endplate degenerative changes at L5-S1. The paraspinal soft tissues are unremarkable. At the T12-L1 level, there is no evidence of central spinal canal or neuroforaminal stenosis. At the L1-L2 level, a broad-based disc protrusion effaces the thecal sac. There is facet arthropathy. There is no significant spinal canal or neural foraminal stenosis. At the L2-L3 level, a broad-based disc protrusion effaces the thecal sac. There is facet arthropathy and ligamentum flavum hypertrophy. There is moderate to severe spinal canal stenosis. There is borderline bilateral neural foraminal narrowing. At the L3-L4 level, a broad-based disc protrusion effaces the thecal sac and narrows the lateral recesses. There is prominent facet arthropathy and ligamentum flavum hypertrophy. There is moderate to severe spinal stenosis. There is at least moderate bilateral foraminal narrowing. At the L4-L5 level, a broad-based disc protrusion effaces the thecal sac. There is prominent facet arthropathy and ligamentum flavum hypertrophy. There is severe spinal stenosis. There is severe right in Mild left neural foraminal narrowing. At the L5-S1 level, there is mild facet arthropathy. There is severe bilateral neural foraminal narrowing. IMPRESSION: 1. Degenerative changes of the lumbar spine as detailed, most pronounced at L4- Please see above discussion.
[2025-02-25] MEDS: ALBUTEROL SULF 2.5 MG/0.5ML(0.5%) NEB SOLN NEB PRN (13:35)
--- NOTE | 2025-02-25 14:49 | DVHINCON2 ---
Date of service: Feb 25, 2025 Referring Physician Sangeeta Reason for Consultation Lumbar canal stenosis History of Present Illness Mr. Harrison is a 65 years old left-handed gentleman with a history of asthma, COPD, arthritis, schizophrenia, he came to the [facility] on with a chief complaint of low back pain for one month. At this time, he is alert and fully oriented, he provided the following history I saw him on 11/15/2024 for "unable to walk" (unremarkable MRI head, T-spine, C- spine showed multilevel degeneration with abnormal T2 signals in the C-spine between C3-C4 and he received surgery) He has chronic fluctuating low back pain has a left he pain since 2014 or earlier, at that time, the pain shoots to the right lower extremities all the way down to the whole foot and all the toes, meanwhile there is stiffness in the right lower extremity There is no shooting pain to the left lower extremity, but intermittently the left knee erasmo Coincidentally after he went through C spine surgery on 11/18/2024, the low back pain resolved but the left hip pain persist with no changes Since the end of 01/2025, the patient has difficult to hold the bowel but no difficult to control the bladder Coughing sneezing does not affect the pain WBC/HB/PLT/MCV, 02/25/25: 4.8/12.2/185/98.1 BMP 02/24/2025: Unremarkable Liver function tests, 02/14/2025: Unremarkable HbA1c 11/15/2024: 5.6 Liver function tests, 11/13/2024: Unremarkable TG/HDL/LDL/HDL, 04/2023: 99/150/99/43 11/18/2024: 69/was 17/80/27 Vitamin B12, 04/2023:410 TSH, 11/14/2024: 3.51 MRI head, 11/15/2024: No acute infarct, intracranial hemorrhage, mass effect, or hydrocephalus. MRI C-spine, 11/16/2024: 1. Degenerative disc disease and facet/ uncinate disease in the cervical spine with associated spinal canal, subarticular, and neural foraminal stenoses as detailed above. 2. There is a degree of congenital spinal canal narrowing contributing to the spinal canal stenoses. 3. T2/stir hyperintense signal in the spinal cord extending from the C3-C5 levels consistent with myelopathy secondary to the spinal canal stenosis at C3-C4. 4. Additional findings as described above MRI T-spine, 11/16/2024: 1. Degenerative disc disease and facet disease in the thoracic spine with associated spinal canal and neural foraminal stenoses as detailed above. 2. Prominent Modic type 2 endplate changes at T5-T6. 3. No signal abnormality in the spinal cord. 4. Additional findings as described above.. MRI lumbar spine, 02/25/25: Degenerative changes of the lumbar spine as detailed, most pronounced at L4-Please see above discussion. Past Medical History Asthma, COPD, schizophrenia, arthritis Past Surgical History Right ankle surgery Family History: FH: cancer G8 FATHER Family History Cancer Social History He uses marijuana, but denies a history of tobacco smoking, drug or alcohol abuse Allergies: Coded Allergies: NO KNOWN ALLERGIES (Unverified , 11/17/22) Home Meds Active Scripts Methocarbamol (Methocarbamol) 750 Mg Tab, 750 MG PO TID PRN, #30 TAB Prov:TAWANA SAMANO MD 11/21/24 Ascorbic Acid (VITAMIN C TABLET) 500 Mg Tb, 500 MG PO BID for 30 Days, #60 TAB Prov:STEPHANIE HERNANDEZ RESIDENT 04/19/23 Reported Medications Quetiapine Fumerate (QUETIAPINE FUMARATE) 400 Mg Tab, 2 TAB PO HS 01/02/23 Ibuprofen Micronized (Ibuprofen) 800 Mg Tab, 1 TAB PO Q8HPRN PRN for pain 01/02/23 Albuterol Sulfate (Ventolin) 2.5 Mg/3 Ml Nb, 2.5 MG INH Q6HP, INH 11/18/22 Simvastatin (Simvastatin) 40 Mg Tab, 40 MG PO DAILY for 30 Days 11/18/22 Sertraline Hcl (Zoloft) 100 Mg Tab, 200 MG PO DAILY, TAB 11/18/22 Current Medications Current Medications Medications (Trade) Dose Ordered Sig/Maisha Route PRN Reason Start Time Stop Time Status Last Admin Quetiapine Fumarate (SEROquel TABLET) 100 mg HS PO 02/24/25 22:00 02/24/25 23:46 Atorvastatin Calcium (Lipitor) 20 mg HS PO 02/24/25 22:00 02/24/25 23:45 Albuterol (Ventolin Medneb) 2.5 mg Q4HPRN PRN NEB SHORTNESS OF BREATH 02/24/25 21:00 02/25/25 13:35 Sertraline HCl (Zoloft) 100 mg DAILY PO 02/25/25 10:00 02/25/25 09:13 Sodium Chloride (Saline [place]) 10 ml Q8HR IV 02/24/25 22:00 02/25/25 06:14 Acetaminophen/ Hydrocodone Bitart ([place] 5/325MG Tab) 1 tab Q4HP PRN PO MODERATE PAIN (4-6 PAIN SCALE) 02/24/25 21:00 Ondansetron HCl (Zofran) 4 mg Q4HP PRN IV NAUSEA / VOMITING 02/24/25 21:00 Docusate Sodium (Colace Capsule) 100 mg BIDPRN PRN PO FOR CONSTIPATION 02/24/25 21:00 Acetaminophen (Tylenol Tablet) 650 mg Q6HP PRN PO PAIN SCALE 1-3 OR TEMP>100.4 02/24/25 21:00 02/24/25 23:46 Nitroglycerin (Ntrostat Sublingual) 0.4 mg Q5MINP PRN SL FOR CHEST PAIN 02/24/25 21:30 Morphine Sulfate 2 mg Q30M PRN IV FOR CHEST PAIN 02/24/25 22:00 Acetaminophen/ Hydrocodone Bitart ([place] 10/325MG Tab) 1 tab Q6HR PO 02/25/25 12:00 Gabapentin (Neurontin Capsule) 300 mg TID PO 02/25/25 14:00 Review of Systems As above, the other systems are negative Vital Signs Vital Signs Date Time Temp Pulse Resp B/P (MAP) Pulse Ox O2 Delivery O2 Flow Rate FiO2 02/25/25 13:41 75 16 100 02/25/25 13:36 Room Air* 0 21 02/25/25 12:55 98.2 122/77 (92) 98.2 Physical Exam GENERAL EXAM: General: the patient is well developed and nourished. No acute distress. HEENT: Normocephalic, neck is supple, no carotid bruits. No mass. RESPIRATORY: Normal respiratory effort with symmetrical lung expansion. Lungs clear to auscultation. CARDIOVASCULAR: Regular rate and rhythm with no murmurs. S1, S2. ABDOMEN: Soft, nontender, normal bowel sound MUSCULOSKELETAL EXAM: Tenderness to palpation in the sacral region NEUROLOGICAL: MENTAL STATUS: Awake and alert. Oriented to person, place, time and general circumstances. Able to give personal history. SPEECH, LANGUAGE, HIGHER CORTICAL FUNCTION: no aphasia or dysathria. CRANIAL NERVES: #2: Intact visual mckeon to confrontation. The optic discs were sharp. #3,4,6: Pupils are equal, round and reactive. EOMs full and conjugate. No nystagmus. #5: Facial sensation intact in all three divisions bilaterally. Mandibular strength intact. #7: Facial muscles symmetrical and strength intact. #8: Hearing grossly normal to voice. #9,10: Uvula and soft palate rise in the midline. Swallow and voice are normal. #11: Trapezius and sternomastoid strength intact bilaterally. #12: Tongue midline. No fasciculations or atrophy. SENSATION: The sensory level to pinprick and light touch at bilateral T2-T3 dermatomes MOTOR: Normal tone in the upper and lower extremity. Normal muscle bulk. No fasciculations. No abnormal movements or posturing. Muscle strength of the major groups in the upper extremities is 4/5. Muscle strength of the major groups in the lower extremities is 4/5. REFLEXES: Deep tendon reflexes are symmetric, arms: 2-3/4, knees: 3/4, ankles: 1/4. No pathological reflexes. CEREBELLAR/COORDINATION: Finger to nose is normal bilaterally. GAIT/STATION: deferred. Walk slowly with his walker Labs/Diagnostic Data Labs Test 02/25/25 04:35 02/24/25 18:36 Range/Units White Blood Count 4.8 # 4.4-10.8 10^3/uL Red Blood Count 3.66 L 4.5-5.90 10^6/uL Hemoglobin 12.2 L 13.5-17.5 g/dL Hematocrit 35.9 L 41.0-53.0 % Mean Corpuscular Volume 98.1 80.0-100.0 fL Mean Corpuscular Hemoglobin 33.2 H 28.0-32.0 pg Mean Corpuscular Hemoglobin Concent 33.9 32.0-36.0 g/dL Red Cell Distribution Width 14.0 11.8-14.3 % Platelet Count 185 140-450 10^3/uL Mean Platelet Volume 7.9 6.9-10.8 fL Neutrophils (%) (Auto) 49.4 37.0-80.0 % Lymphocytes (%) (Auto) 30.8 10.0-50.0 % Monocytes (%) (Auto) 10.8 0.0-12.0 % Eosinophils (%) (Auto) 8.5 H 0.0-7.0 % Basophils (%) (Auto) 0.5 0.0-2.0 % Neutrophils # (Auto) 2.4 1.6-8.6 10 ^3/uL Lymphocytes # (Auto) 1.5 0.4-5.4 10 ^3/uL Monocytes # (Auto) 0.5 0-1.3 10 ^3/uL Eosinophils # (Auto) 0.4 0-0.8 10 ^3/uL Basophils # (Auto) 0 0-0.2 10 ^3/uL Nucleated Red Blood Cells 0.1 % Sodium Level 146 H 136-145 mmol/L Potassium Level 3.8 3.5-5.1 mmol/L Chloride Level 114 H 98-107 mmol/L Carbon Dioxide Level 24 20-31 mmol/L Anion Gap 8 5-15 Blood Urea Nitrogen 14 9-23 mg/dL Creatinine 0.81 0.700-1.30 mg/dL Glomerular Filtration Rate Calc 98 >90 mL/min BUN/Creatinine Ratio 17.3 10.0-20.0 Serum Glucose 85 74-106 mg/dL Calcium Level 9.1 8.7-10.4 mg/dL Total Bilirubin 0.2 0.2-1.0 mg/dL Aspartate Amino Transferase (AST) 19 13-40 U/L Alanine Aminotransferase (ALT) 23 7-40 U/L Alkaline Phosphatase 63 46-116 U/L Total Protein 6.6 5.7-8.2 g/dL Albumin 4.1 3.2-4.8 g/dL Urine Color Light-yellow Yellow Urine Clarity Clear Clear Urine pH 6.0 5.0-9.0 Urine Specific [place] 1.021 1.001-1.035 Urine Protein Trace H Negative Urine Ketones Negative Negative Urine Blood Negative Negative /uL Urine Nitrite Negative Negative Urine Bilirubin Negative Negative Urine Urobilinogen Normal Negative mg/dL Urine Leukocyte Esterase Negative Negative /uL Urine RBC 1 0 - 3 /hpf Urine Microscopic WBC 1 0-3 /HPF Urine Squamous Epithelial Cells Few <5 /hpf Urine Bacteria None seen None Seen /hpf Urine Glucose Normal Normal mg/dL Assessment Lower back pain with radiating to the right lower extremity Fecal incontinence Cervical spine stenosis with myelopathy, status post C-spine surgery in 11/2024 Gait disturbance Plan/Recommendation Monitoring Supportive treatment Telemetry MRI T-spine Holder Up to chair Physical therapy Spine team consultation More recommendation per clinical course Prognosis: Poor This medical document was created using an electronic medical record system with [employer] dictation system. Although this document has been carefully reviewed, there may still be some phonetic and typographical errors. These areas are purely typographical due to imperfections of the software programs, and do not reflect any compromise in the patient's medical care. Plan discussed with: Patient, Other JOSE LOPEZ MD Feb 25, 2025 14:49
[2025-02-25] MEDS ORDERED: LORazepam 2MG/ML-1ML VIAL IV PRN (15:30)
[2025-02-25] MEDS: GABAPENTIN 300 MG CAP PO SCH (16:11)
[2025-02-25] MEDS ORDERED: HYDROcodone-ACET 10/325MG TAB PO ONE (18:00)
--- NOTE | 2025-02-25 20:48 | DVH ---
EXAM: MRI THORACIC SPINE WITHOUT INDICATION: T-spine myelopathy TECHNIQUE: Multiplanar, multisequence imaging of the thoracic spine without contrast. COMPARISON: MRI THORACIC SPINE WITHOUT on DOS: 11/16/24 FINDINGS: [ANATOMY]: Overall normal alignment of the thoracic spine. [BONES]: The vertebral bodies are normal in height and alignment. Modic type 2 endplate degenerative change with fatty deposition along the T5-6 intervertebral disc space. [CORD]: Small area T2 hyperintensity of the thoracic cord posterior to T3-4 intervertebral disc space associated with anterior thoracic cord margin contact with a disc bulge. No definitive cord edema. [SPINAL CANAL]: The spinal canal shows no significant narrowing. [INTERVERTEBRAL DISCS]: Multilevel disc bulges at T2-3, T3-4, T4-5, T5-6 and throughout the remainder of the thoracic vertebrae to a lesser extent. Diffuse disc desiccation. [FACETS]: The facets are normal in alignment. [FORAMINA]: There is no significant foraminal narrowing. [OTHER]: Trace bilateral pleural effusions. The visualized paraspinal soft tissues are unremarkable. IMPRESSION: 1. Small area of T2 hyperintensity of the thoracic cord posterior to T3-4 intervertebral disc space associated with anterior thoracic cord margin contact with a disc bulge. Correlate for chronicity. 2. No definitive cord edema. 3. Multilevel disc bulges at T2-3, T3-4, T4-5, T5-6 and throughout the remainder of the thoracic vertebrae to a lesser extent. 4. Imaging findings are largely unchanged from 11/16/24.
[2025-02-26] VITALS (8 sets, daily range): BP systolic 100–119; BP diastolic 61–78; PULSE 68–85; RESP 17–20; TEMP 96.9–98.5; O2SAT 92–98
--- NOTE | 2025-02-26 09:44 | DVHPN2 ---
Reviewed: Care Plan Changes from previous H/P or p: No Changes Eyes: No Pain, No Vision change, No Conjunctivae inflammation, No Eyelid inflammation, No Other, No Redness ENT: No Ear pain, No Ear discharge, No Nose pain, No Nose discharge, No Nose congestion, No Mouth pain, No Mouth swelling, No Throat pain, No Throat swelling, No Other Cardiovascular: No Chest Pain, No Palpitations, No Orthopnea, No Paroxysmal Noc. Dyspnea, No Edema, No Lt Headedness, No Other Respiratory: No Cough, No Dry, No Shortness of breath, No SOB with excertion, No Wheezing, No Hemoptysis, No Pleuritic Pain, No Sputum, No Other Gastrointestinal: No Nausea, No Vomiting, No Abdominal Pain, No Diarrhea, No Constipation, No Melena, No Hematochezia, No Other Genitourinary: No Dysuria, No Frequency, No Incontinence, No Hematuria, No Retention, No Other Musculoskeletal: No other, No neck pain, No shoulder pain, No arm pain; back pain; No hand pain, No leg pain, No foot pain Skin: No Rash, No Lesions, No Jaundice, No Bruising, No Other Objective Vitals Vital Signs Date Time Temp Pulse Resp B/P (MAP) Pulse Ox O2 Delivery O2 Flow Rate FiO2 02/26/25 08:39 96.9 75 18 119/69 (86) 95 96.9 02/25/25 20:16 Room Air* 0 21 Intake/Output Intake and Output 02/26/25 07:00 Intake Total 790 ml Balance 790 ml Intake Oral 790 ml # Voids 7 # Bowel Movements 2 Medications Current Medications Medications Dose Ordered Sig/Maisha Route Start Time Stop Time Status Last Admin Dose Admin Quetiapine Fumarate 100 mg HS PO 02/24/25 22:00 02/25/25 21:08 100 MG Atorvastatin Calcium 20 mg HS PO 02/24/25 22:00 02/25/25 21:08 20 MG Albuterol 2.5 mg Q4HPRN PRN NEB 02/24/25 21:00 02/25/25 13:35 2.5 MG Sertraline HCl 100 mg DAILY PO 02/25/25 10:00 02/26/25 09:13 100 MG Sodium Chloride 10 ml Q8HR IV 02/24/25 22:00 02/26/25 05:26 10 ML Acetaminophen/ Hydrocodone Bitart 1 tab Q4HP PRN PO 02/24/25 21:00 Ondansetron HCl 4 mg Q4HP PRN IV 02/24/25 21:00 Docusate Sodium 100 mg BIDPRN PRN PO 02/24/25 21:00 Acetaminophen 650 mg Q6HP PRN PO 02/24/25 21:00 02/24/25 23:46 650 MG Nitroglycerin 0.4 mg Q5MINP PRN SL 02/24/25 21:30 Morphine Sulfate 2 mg Q30M PRN IV 02/24/25 22:00 Acetaminophen/ Hydrocodone Bitart 1 tab Q6HR PO 02/25/25 12:00 02/26/25 05:27 1 TAB Gabapentin 300 mg TID PO 02/25/25 14:00 02/26/25 05:27 300 MG Lorazepam 1 mg ONCE PRN IV 02/25/25 15:30 Laboratory Results Laboratory Tests 02/25/25 04:35 Urinalysis Test 02/24/25 18:36 Urine Color Light-yellow (Yellow) Urine Clarity Clear (Clear) Urine pH 6.0 (5.0-9.0) Urine Specific [place] 1.021 (1.001-1.035) Urine Protein Trace (Negative) H Urine Ketones Negative (Negative) Urine Blood Negative /uL (Negative) Urine Nitrite Negative (Negative) Urine Bilirubin Negative (Negative) Urine Urobilinogen Normal mg/dL (Negative) Urine Leukocyte Esterase Negative /uL (Negative) Urine RBC 1 /hpf (0 - 3) Urine Microscopic WBC 1 /HPF (0-3) Urine Squamous Epithelial Cells Few /hpf (<5) Urine Bacteria None seen /hpf (None Seen) Urine Glucose Normal mg/dL (Normal) Labs and/or images reviewed: Labs reviewed by me, Image(s) reviewed by me Assessment/Plan Assessment/Plan Acute severe low back pain: L4-5 lumbar spinal canal stenosis: MRI T-spine and L-spine shows DJD changes at multiple levels, consult for Dr. 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 Wilson on 11-19-24, Bilateral lower extremity weakness and unsteady gait: Consult by neurology Dr. Rodriguez appreciated Ejection fraction 65 % C-spine and T-spine syringomyelia Asthma COPD Depression Schizophrenia Hypercholesterolemia Chronic current marijuana abuse: Counseled Time spent 70 minutes Advanced care planning time 20 minutes Patient is full code Plan discussed with: Patient My Orders Orders - TAWANA SAMANO MD Procedure Category Date Status Time Lumbar Spine Wo MRI 02/25/25 Resulted Contrast 11:50 Hydrocodone-Acet PHA 02/25/25 In Process 10/325mg Tab ([place] 12:00 * Orthopedic Consult CONS 02/25/25 Transmitted 12:01 Gabapentin Capsule PHA 02/25/25 In Process (Neurontin Capsule) 14:00 Date of Service: Feb 26, 2025 Billing Provider: TAWANA SAMANO MD Common Visit Codes: [id number] INP/OBS CARE(HIGH) TAWANA SAMANO MD Feb 26, 2025 09:44
--- NOTE | 2025-02-26 10:19 | DVHINCON2 ---
Consultation - Surgical Date Seen: Feb 26, 2025 Referring Physician Referring Physician Attending Doctor: Tawana Samano MD Reason for Consultation Reason for Visit: Intractable back pain History of Present Illness History of Present Illness History of Present Illness The patient is a 65-year-old male with past medical history of asthma, COPD, arthritis, schizophrenia, depression, and hyperlipidemia who presented to [facility] ED with complaint of back pain. Patient reports he has been experiencing back pain, rating 7/10 numeric scale, getting worse that prompted this visit. Patient was seen and evaluated in the ED, laboratory data shows WBC 6.9, hemoglobin 11.6, hematocrit 35.1, platelets 196, sodium 144, potassium 4.0, BUN 13, creatinine 0.94, GFR 91, glucose 89, calcium 8.8, blood pressure 142/82, heart rate 67, temperature 98.0 F, O2 saturation 97% on room air. Lumbar spine CT revealing advanced degenerative disc disease and facet degenerative changes likely resulting in significant central canal and foraminal stenosis. patient denied chest pain, no headache, dizziness, diaphoresis, shortness of breaths, no abdominal pain, diarrhea, nausea, vomiting, fever, no chills. Patient was admitt ed for further evaluation and medical management. Past Medical/Surgical History Past Medical/Surgical History Past Medical History Depression, Arthritis, Asthma, COPD, Schizophrenia Past Surgical History Patient had prior left anterior spine surgery ACDF with Dr. Jean this year Family and Social History Family and Social History Family History Reviewed, noncontributory to the management of this case. Past Social History The patient lives at home, denies smoking, alcohol or illicit drugs abuse. Allergies and medications Allergies: Coded Allergies: NO KNOWN ALLERGIES (Unverified , 11/17/22) Home Meds Active Scripts Methocarbamol (Methocarbamol) 750 Mg Tab, 750 MG PO TID PRN, #30 TAB Prov:TAWANA SAMANO MD 11/21/24 Ascorbic Acid (VITAMIN C TABLET) 500 Mg Tb, 500 MG PO BID for 30 Days, #60 TAB Prov:STEPHANIE HERNANDEZ RESIDENT 04/19/23 Reported Medications Quetiapine Fumerate (QUETIAPINE FUMARATE) 400 Mg Tab, 2 TAB PO HS 01/02/23 Ibuprofen Micronized (Ibuprofen) 800 Mg Tab, 1 TAB PO Q8HPRN PRN for pain 01/02/23 Albuterol Sulfate (Ventolin) 2.5 Mg/3 Ml Nb, 2.5 MG INH Q6HP, INH 11/18/22 Simvastatin (Simvastatin) 40 Mg Tab, 40 MG PO DAILY for 30 Days 11/18/22 Sertraline Hcl (Zoloft) 100 Mg Tab, 200 MG PO DAILY, TAB 11/18/22 Review of systems Review of Systems: MSK:Abnormal (BACK PAIN), NEURO:Abnormal (Lower extremity weakness when ambulating, patient states that his left leg will occasionally buckle and give out on him) Examination Vital signs IMAGING: ORDERING PHYSICIAN: TAWANA SAMANO MD PROCEDURE(s): MSL - LUMBAR SPINE WO CONTRAST REASON: Severe low back pain ORDER NUMBER(s): [id number], ACCESSION NUMBER(s): [id number] EXAM: MRI LUMBAR SPINE WO CONTRAST CLINICAL HISTORY: Severe low back pain COMPARISON: CT LS SPINE WO CONTRAST on DOS: 02/24/25, XY LUMBAR SPINE 3 VIEW on DOS: 02/24/25 TECHNIQUE: MRI imaging of the lumbar was performed on a MRI imaging system without intravenous contrast. FINDINGS: For the purposes of this examination, the last well-formed intervertebral disc space will be designated as L5-S1. By this convention, the conus medullaris terminates at the L1 level. The vertebral body heights are well-maintained without evidence of fracture. There are multilevel degenerative changes of the lumbar spine characterized by disc desiccation, loss of intervertebral disc height, and endplate osteophytosis. There are Modic type 2 endplate degenerative changes at L5-S1. The paraspinal soft tissues are unremarkable. At the T12-L1 level, there is no evidence of central spinal canal or neuroforaminal stenosis. At the L1-L2 level, a broad-based disc protrusion effaces the thecal sac. There is facet arthropathy. There is no significant spinal canal or neural foraminal stenosis. At the L2-L3 level, a broad-based disc protrusion effaces the thecal sac. There is facet arthropathy and ligamentum flavum hypertrophy. There is moderate to severe spinal canal stenosis. There is borderline bilateral neural foraminal narrowing. At the L3-L4 level, a broad-based disc protrusion effaces the thecal sac and narrows the lateral recesses. There is prominent facet arthropathy and ligamentum flavum hypertrophy. There is moderate to severe spinal stenosis. There is at least moderate bilateral foraminal narrowing. At the L4-L5 level, a broad-based disc protrusion effaces the thecal sac. There is prominent facet arthropathy and ligamentum flavum hypertrophy. There is severe spinal stenosis. There is severe right in Mild left neural foraminal narrowing. At the L5-S1 level, there is mild facet arthropathy. There is severe bilateral neural foraminal narrowing. IMPRESSION: 1. Degenerative changes of the lumbar spine as detailed, most pronounced at L4- Please see above discussion. RING PHYSICIAN: JOSE LOPEZ MD PROCEDURE(s): MST4 - THORACIC SPINE WITHOUT REASON: T-spine myelopathy ORDER NUMBER(s): [id number], ACCESSION NUMBER(s): [id number] EXAM: MRI THORACIC SPINE WITHOUT INDICATION: T-spine myelopathy TECHNIQUE: Multiplanar, multisequence imaging of the thoracic spine without contrast. COMPARISON: MRI THORACIC SPINE WITHOUT on DOS: 11/16/24 FINDINGS: [ANATOMY]: Overall normal alignment of the thoracic spine. [BONES]: The vertebral bodies are normal in height and alignment. Modic type 2 endplate degenerative change with fatty deposition along the T5-6 intervertebral disc space. [CORD]: Small area T2 hyperintensity of the thoracic cord posterior to T3-4 intervertebral disc space associated with anterior thoracic cord margin contact with a disc bulge. No definitive cord edema. [SPINAL CANAL]: The spinal canal shows no significant narrowing. [INTERVERTEBRAL DISCS]: Multilevel disc bulges at T2-3, T3-4, T4-5, T5-6 and throughout the remainder of the thoracic vertebrae to a lesser extent. Diffuse disc desiccation. [FACETS]: The facets are normal in alignment. [FORAMINA]: There is no significant foraminal narrowing. [OTHER]: Trace bilateral pleural effusions. The visualized paraspinal soft tissues are unremarkable. IMPRESSION: 1. Small area of T2 hyperintensity of the thoracic cord posterior to T3-4 intervertebral disc space associated with anterior thoracic cord margin contact with a disc bulge. Correlate for chronicity. 2. No definitive cord edema. 3. Multilevel disc bulges at T2-3, T3-4, T4-5, T5-6 and throughout the remainder of the thoracic vertebrae to a lesser extent. 4. Imaging findings are largely unchanged from 11/16/24. Vital Signs Date Time Temp Pulse Resp B/P (MAP) Pulse Ox O2 Delivery O2 Flow Rate FiO2 02/26/25 09:45 98 Room Air 0.0 02/26/25 09:45 21 02/26/25 08:39 96.9 75 18 119/69 (86) 96.9 Medications Current Medications Medications (Trade) Dose Ordered Sig/Maisha Route PRN Reason Start Time Stop Time Status Last Admin Acetaminophen/ Hydrocodone Bitart ([place] 10/325MG Tab) 1 tab Q6HR PO 02/25/25 12:00 02/26/25 05:27 Gabapentin (Neurontin Capsule) 300 mg TID PO 02/25/25 14:00 02/26/25 05:27 Lorazepam (Ativan Inj) 1 mg ONCE PRN IV MRI 02/25/25 15:30 Laboratory Labs Test 02/25/25 04:35 02/24/25 18:36 Range/Units White Blood Count 4.8 # 4.4-10.8 10^3/uL Red Blood Count 3.66 L 4.5-5.90 10^6/uL Hemoglobin 12.2 L 13.5-17.5 g/dL Hematocrit 35.9 L 41.0-53.0 % Mean Corpuscular Volume 98.1 80.0-100.0 fL Mean Corpuscular Hemoglobin 33.2 H 28.0-32.0 pg Mean Corpuscular Hemoglobin Concent 33.9 32.0-36.0 g/dL Red Cell Distribution Width 14.0 11.8-14.3 % Platelet Count 185 140-450 10^3/uL Mean Platelet Volume 7.9 6.9-10.8 fL Neutrophils (%) (Auto) 49.4 37.0-80.0 % Lymphocytes (%) (Auto) 30.8 10.0-50.0 % Monocytes (%) (Auto) 10.8 0.0-12.0 % Eosinophils (%) (Auto) 8.5 H 0.0-7.0 % Basophils (%) (Auto) 0.5 0.0-2.0 % Neutrophils # (Auto) 2.4 1.6-8.6 10 ^3/uL Lymphocytes # (Auto) 1.5 0.4-5.4 10 ^3/uL Monocytes # (Auto) 0.5 0-1.3 10 ^3/uL Eosinophils # (Auto) 0.4 0-0.8 10 ^3/uL Basophils # (Auto) 0 0-0.2 10 ^3/uL Nucleated Red Blood Cells 0.1 % Sodium Level 146 H 136-145 mmol/L Potassium Level 3.8 3.5-5.1 mmol/L Chloride Level 114 H 98-107 mmol/L Carbon Dioxide Level 24 20-31 mmol/L Anion Gap 8 5-15 Blood Urea Nitrogen 14 9-23 mg/dL Creatinine 0.81 0.700-1.30 mg/dL Glomerular Filtration Rate Calc 98 >90 mL/min BUN/Creatinine Ratio 17.3 10.0-20.0 Serum Glucose 85 74-106 mg/dL Calcium Level 9.1 8.7-10.4 mg/dL Total Bilirubin 0.2 0.2-1.0 mg/dL Aspartate Amino Transferase (AST) 19 13-40 U/L Alanine Aminotransferase (ALT) 23 7-40 U/L Alkaline Phosphatase 63 46-116 U/L Total Protein 6.6 5.7-8.2 g/dL Albumin 4.1 3.2-4.8 g/dL Urine Color Light-yellow Yellow Urine Clarity Clear Clear Urine pH 6.0 5.0-9.0 Urine Specific [place] 1.021 1.001-1.035 Urine Protein Trace H Negative Urine Ketones Negative Negative Urine Blood Negative Negative /uL Urine Nitrite Negative Negative Urine Bilirubin Negative Negative Urine Urobilinogen Normal Negative mg/dL Urine Leukocyte Esterase Negative Negative /uL Urine RBC 1 0 - 3 /hpf Urine Microscopic WBC 1 0-3 /HPF Urine Squamous Epithelial Cells Few <5 /hpf Urine Bacteria None seen None Seen /hpf Urine Glucose Normal Normal mg/dL Examination: GENERAL:Normal, HEENT:Normal, NECK:Normal (States his neck pain has greatly improved after his ACDF), LUNGS:Normal, CVS:Normal, ABDOMEN:Normal, MSK:Abnormal (Bilateral lower extremity weakness as well as intermittent leg buckling [id number], unable to ambulate safely), SKIN:Normal, NEURO:Abnormal (Patient also states he is having increasing inability to control his bowels) Problem List/Assessment/Plan Problems: (1) Lumbar stenosis with neurogenic claudication (2) Lumbar radiculopathy Assessment and Plan Degenerative changes of the lumbar spine, multiple levels of lumbar stenosis degenerative disc disease Continue care and support per admitting team's discretion Physical therapy evaluation, treatment recommendations and safe discharge planning recommendations Effective pain management including muscle relaxers if the patient is com plaining of muscle spasms Cardiology consult for surgical clearance for surgery Spine team would like to put the patient on the OR schedule for Friday, pending OR availability Discussed treatment options with the patient, patient is agreeable to proceed with surgery Call with questions Katerina Mann [facility] Orthopaedic Spine Surgery nurse practitioner For Dr Kristin Wilson Patient was examined, chart reviewed, labs evaluated, and diagnostic studies and findings analyzed. Case was discussed with Dr. Ambrocio Wilson who formulated the plan of care. This medical document was created using an electronic medical record system with [employer] dictation system. Although this document has been carefully reviewed, there might still be some phonetic and typographical errors. These areas are purely typographical due to imperfections of the software programs, and do not reflect any compromise in the patient's medical care. Plan discussed with Plan discussed with: Patient, Other Visit Coding Surgery Date of Service if different f: Feb 26, 2025 Billing Provider: YUNIEL MANN NP Surgery Visit Codes: 70295 - INP CONSULT <55 MIN YUNIEL MANN NP Feb 26, 2025 10:19
[2025-02-27] VITALS (13 sets, daily range): BP systolic 100–127; BP diastolic 54–82; PULSE 71–86; RESP 17–19; TEMP 97–99.6; O2SAT 92–100
--- NOTE | 2025-02-27 10:31 | DVHPN2 ---
Reviewed: Care Plan Changes from previous H/P or p: No Changes Eyes: No Pain, No Vision change, No Conjunctivae inflammation, No Eyelid inflammation, No Other, No Redness ENT: No Ear pain, No Ear discharge, No Nose pain, No Nose discharge, No Nose congestion, No Mouth pain, No Mouth swelling, No Throat pain, No Throat swelling, No Other Cardiovascular: No Chest Pain, No Palpitations, No Orthopnea, No Paroxysmal Noc. Dyspnea, No Edema, No Lt Headedness, No Other Respiratory: No Cough, No Dry, No Shortness of breath, No SOB with excertion, No Wheezing, No Hemoptysis, No Pleuritic Pain, No Sputum, No Other Gastrointestinal: No Nausea, No Vomiting, No Abdominal Pain, No Diarrhea, No Constipation, No Melena, No Hematochezia, No Other Genitourinary: No Dysuria, No Frequency, No Incontinence, No Hematuria, No Retention, No Other Musculoskeletal: No other, No neck pain, No shoulder pain, No arm pain; back pain; No hand pain, No leg pain, No foot pain Skin: No Rash, No Lesions, No Jaundice, No Bruising, No Other Objective Vitals Vital Signs Date Time Temp Pulse Resp B/P (MAP) Pulse Ox O2 Delivery O2 Flow Rate FiO2 02/27/25 09:26 78 17 99 02/27/25 09:21 Room Air 0.0 02/27/25 09:21 21 02/27/25 09:00 98.1 109/72 (84) 98.1 Intake/Output Intake and Output 02/27/25 07:00 Intake Total 2000 ml Balance 2000 ml Intake Oral 2000 ml # Voids 6 # Bowel Movements 1 Medications Current Medications Medications Dose Ordered Sig/Maisha Route Start Time Stop Time Status Last Admin Dose Admin Quetiapine Fumarate 100 mg HS PO 02/24/25 22:00 02/26/25 21:54 100 MG Atorvastatin Calcium 20 mg HS PO 02/24/25 22:00 02/26/25 21:55 20 MG Albuterol 2.5 mg Q4HPRN PRN NEB 02/24/25 21:00 02/27/25 09:21 2.5 MG Sertraline HCl 100 mg DAILY PO 02/25/25 10:00 02/27/25 09:08 100 MG Sodium Chloride 10 ml Q8HR IV 02/24/25 22:00 02/27/25 05:44 10 ML Acetaminophen/ Hydrocodone Bitart 1 tab Q4HP PRN PO 02/24/25 21:00 Ondansetron HCl 4 mg Q4HP PRN IV 02/24/25 21:00 Docusate Sodium 100 mg BIDPRN PRN PO 02/24/25 21:00 Acetaminophen 650 mg Q6HP PRN PO 02/24/25 21:00 02/24/25 23:46 650 MG Nitroglycerin 0.4 mg Q5MINP PRN SL 02/24/25 21:30 Morphine Sulfate 2 mg Q30M PRN IV 02/24/25 22:00 Acetaminophen/ Hydrocodone Bitart 1 tab Q6HR PO 02/25/25 12:00 02/27/25 05:44 1 TAB Gabapentin 300 mg TID PO 02/25/25 14:00 02/27/25 05:44 300 MG Lorazepam 1 mg ONCE PRN IV 02/25/25 15:30 Laboratory Results Laboratory Tests 02/25/25 04:35 Urinalysis Test 02/24/25 18:36 Urine Color Light-yellow (Yellow) Urine Clarity Clear (Clear) Urine pH 6.0 (5.0-9.0) Urine Specific [place] 1.021 (1.001-1.035) Urine Protein Trace (Negative) H Urine Ketones Negative (Negative) Urine Blood Negative /uL (Negative) Urine Nitrite Negative (Negative) Urine Bilirubin Negative (Negative) Urine Urobilinogen Normal mg/dL (Negative) Urine Leukocyte Esterase Negative /uL (Negative) Urine RBC 1 /hpf (0 - 3) Urine Microscopic WBC 1 /HPF (0-3) Urine Squamous Epithelial Cells Few /hpf (<5) Urine Bacteria None seen /hpf (None Seen) Urine Glucose Normal mg/dL (Normal) Microbiology Microbiology Date/Time Source Procedure Growth Status 02/25/25 02:37 Nose MRSA Screen - Final Complete Labs and/or images reviewed: Labs reviewed by me, Image(s) reviewed by me Assessment/Plan Assessment/Plan Acute severe low back pain: L4-5 lumbar spinal canal stenosis: MRI T-spine and L-spine shows DJD changes at multiple levels, consult for Dr. 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 Wilson on 11-19-24, Bilateral lower extremity weakness and unsteady gait: Consult by neurology Dr. Rodriguez appreciated Echocardiogram 11/18/2024, Ejection fraction 65 % C-spine and T-spine syringomyelia Asthma COPD Depression Schizophrenia Hypercholesterolemia Chronic current marijuana abuse: Counseled Time spent 50 minutes Advanced care planning time 20 minutes Patient is full code Plan discussed with: Patient My Orders Orders - TAWANA SAMANO MD Procedure Category Date Status Time * Cardiology Consult CONS 02/27/25 Transmitted 10:22 Date of Service: Feb 27, 2025 Billing Provider: TAWANA SAMANO MD Common Visit Codes: [id number] INP/OBS CARE(HIGH) TAWANA SAMANO MD Feb 27, 2025 10:31
--- NOTE | 2025-02-27 11:53 | DVH ---
AP portable chest CLINICAL INDICATION: Pre-op Comparison: 11/14/2024 FINDINGS: Heart size is normal. No infiltrates or effusions. No bony thoracic abnormalities. IMPRESSION: 1. Normal chest x-ray.
--- NOTE | 2025-02-27 12:54 | ECG ---
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
--- NOTE | 2025-02-27 13:13 | DVHINCON2 ---
Date Seen: Feb 27, 2025 Referring Physician MD Luis Reason for Consultation Cardiac risk stratification History of Present Illness This is a 65-year-old male patient who presented to the emergency room with chief complaint of back pain for two days. The patient has been evaluated by spinal team and diagnosed with lumbar stenosis with neurogenic claudication and lumbar radiculopathy with the patient scheduled for interventional surgery pending cardiac risk stratification. Reports he is able to ambulate without restrictions 15-20 minutes at a time. Denies exertional angina or dyspnea on exertion. The patient is able to use flights of stairs without any symptoms. He underwent a 12 lead electrocardiogram revealing a normal sinus rhythm. A recent transthoracic echocardiogram revealing LVEF of 65% with normal RV function. Significant past medical history includes dyslipidemia, COPD, marijuana use, alcohol use anxiety, and depression. He denies any cardiac history. Past Medical History Past medical history reviewed. No other significant than mentioned above. Past Surgical History Cervical/spinal surgery Right ankle ORIF Family History: FH: cancer G8 FATHER Family History Family history reviewed. Social History Denies tobacco use. Admits to occasional marijuana use. Admits to drinking approximately six beers per week. Allergies: Coded Allergies: NO KNOWN ALLERGIES (Unverified , 11/17/22) Home Meds Active Scripts Methocarbamol (Methocarbamol) 750 Mg Tab, 750 MG PO TID PRN, #30 TAB Prov:TAWANA SAMANO MD 11/21/24 Ascorbic Acid (VITAMIN C TABLET) 500 Mg Tb, 500 MG PO BID for 30 Days, #60 TAB Prov:STEPHANIE HERNANDEZ RESIDENT 04/19/23 Reported Medications Quetiapine Fumerate (QUETIAPINE FUMARATE) 400 Mg Tab, 2 TAB PO HS 01/02/23 Ibuprofen Micronized (Ibuprofen) 800 Mg Tab, 1 TAB PO Q8HPRN PRN for pain 01/02/23 Albuterol Sulfate (Ventolin) 2.5 Mg/3 Ml Nb, 2.5 MG INH Q6HP, INH 11/18/22 Simvastatin (Simvastatin) 40 Mg Tab, 40 MG PO DAILY for 30 Days 11/18/22 Sertraline Hcl (Zoloft) 100 Mg Tab, 200 MG PO DAILY, TAB 11/18/22 Home Meds Home medications reviewed. Review of Systems Constitutional: No symptom reported Ears, Nose, & Throat: No symptom reported Eyes: No symptom reported Neurological: No symptoms reported Pulmonary/Respiratory: No symptom reported Cardiovascular: No symptom reported Gastrointestinal: No symptom reported Genitourinary: No symptom reported Musculoskeletal: Back pain Skin: No symptom reported Psychiatric: No symptom reported Endocrine: No symptom reported Hemotologic/Lymphatic: No symptom reported Vital Signs Vital Signs Date Time Temp Pulse Resp B/P (MAP) Pulse Ox O2 Delivery O2 Flow Rate FiO2 02/27/25 09:26 78 17 99 02/27/25 09:21 Room Air 0.0 02/27/25 09:21 21 02/27/25 09:00 98.1 109/72 (84) 98.1 Physical Exam General Appearance: Cooperative. Well-developed. Well-nourished. No acute distress. Pulmonary/Respiratory: Clear, bilateral breaths sounds. Cardiovascular/Chest: Regular rate and rhythm. Peripheral Pulses: 2+ Radial (R). 2+ Radial (L). 2+ Pedal (R). 2+ Pedal (L) Abdominal Exam: Normal bowel sounds. Ankle Exam: Negative ankle edema Lower extremities: Negative lower extremity edema Neuro/Mental Status: A/OX4, coherent. Thoughts/Psych: Normal thought pattern. Appropriate mood and affect. Good judgment and insight. Appearance: No acute distress. Skin Exam: Normal inspection. Normal color. Warm and dry. Labs/Diagnostic Data Labs Test 02/25/25 04:35 02/24/25 18:36 Range/Units White Blood Count 4.8 # 4.4-10.8 10^3/uL Red Blood Count 3.66 L 4.5-5.90 10^6/uL Hemoglobin 12.2 L 13.5-17.5 g/dL Hematocrit 35.9 L 41.0-53.0 % Mean Corpuscular Volume 98.1 80.0-100.0 fL Mean Corpuscular Hemoglobin 33.2 H 28.0-32.0 pg Mean Corpuscular Hemoglobin Concent 33.9 32.0-36.0 g/dL Red Cell Distribution Width 14.0 11.8-14.3 % Platelet Count 185 140-450 10^3/uL Mean Platelet Volume 7.9 6.9-10.8 fL Neutrophils (%) (Auto) 49.4 37.0-80.0 % Lymphocytes (%) (Auto) 30.8 10.0-50.0 % Monocytes (%) (Auto) 10.8 0.0-12.0 % Eosinophils (%) (Auto) 8.5 H 0.0-7.0 % Basophils (%) (Auto) 0.5 0.0-2.0 % Neutrophils # (Auto) 2.4 1.6-8.6 10 ^3/uL Lymphocytes # (Auto) 1.5 0.4-5.4 10 ^3/uL Monocytes # (Auto) 0.5 0-1.3 10 ^3/uL Eosinophils # (Auto) 0.4 0-0.8 10 ^3/uL Basophils # (Auto) 0 0-0.2 10 ^3/uL Nucleated Red Blood Cells 0.1 % Sodium Level 146 H 136-145 mmol/L Potassium Level 3.8 3.5-5.1 mmol/L Chloride Level 114 H 98-107 mmol/L Carbon Dioxide Level 24 20-31 mmol/L Anion Gap 8 5-15 Blood Urea Nitrogen 14 9-23 mg/dL Creatinine 0.81 0.700-1.30 mg/dL Glomerular Filtration Rate Calc 98 >90 mL/min BUN/Creatinine Ratio 17.3 10.0-20.0 Serum Glucose 85 74-106 mg/dL Calcium Level 9.1 8.7-10.4 mg/dL Total Bilirubin 0.2 0.2-1.0 mg/dL Aspartate Amino Transferase (AST) 19 13-40 U/L Alanine Aminotransferase (ALT) 23 7-40 U/L Alkaline Phosphatase 63 46-116 U/L Total Protein 6.6 5.7-8.2 g/dL Albumin 4.1 3.2-4.8 g/dL Urine Color Light-yellow Yellow Urine Clarity Clear Clear Urine pH 6.0 5.0-9.0 Urine Specific [place] 1.021 1.001-1.035 Urine Protein Trace H Negative Urine Ketones Negative Negative Urine Blood Negative Negative /uL Urine Nitrite Negative Negative Urine Bilirubin Negative Negative Urine Urobilinogen Normal Negative mg/dL Urine Leukocyte Esterase Negative Negative /uL Urine RBC 1 0 - 3 /hpf Urine Microscopic WBC 1 0-3 /HPF Urine Squamous Epithelial Cells Few <5 /hpf Urine Bacteria None seen None Seen /hpf Urine Glucose Normal Normal mg/dL Microbiology Date/Time Source Procedure Growth Status 02/25/25 02:37 Nose MRSA Screen - Final Complete Assessment Preprocedural cardiovascular examination Lumbar stenosis with neurogenic claudication and radiculopathy Dyslipidemia COPD Anxiety Depression Marijuana use Plan/Recommendation (Dr. Trujillo) A transthoracic echocardiogram reveals an EF of 65% with no severe valve abnormalities. Revised cardiac risk index (Adan criteria): 0 points (0.5% risk of major cardiac event). There is no underlying history of congestive heart failure, coronary artery disease, equivalent of cardiac symptoms, and has a good functional capacity. Per cardiology standpoint, patient is at an acceptable- risk for moderate-risk surgery. There is no additional cardiac work-up indicated prior to surgery. Thank you for allowing us to participate in this patient's care. This medical document was created using an electronic medical record system with voice recognition software and computerized dictation system. Although this document has been carefully reviewed, there might still be some phonetic and typographical errors. Occasional wrong-word or ``sound-alike substitutions may have occurred due to the inherent limitations of voice recognition software. These areas are purely typographical due to imperfections of the software programs and do not reflect any compromise in the patient's medical care. Please read the chart carefully and recognize, using context, where these substitutions have occurred. Plan discussed with: Patient, Other NYHA Physical activity limitations: NA Date of Service: Feb 27, 2025 Billing Provider: HILDA ANDREA Cardiology Common Codes: [id number] INP/OBS CARE (High) HILDA ANDREA Feb 27, 2025 13:13
--- NOTE | 2025-02-27 15:49 | DVHPN2 ---
Progress Note - Dictate Date Seen: Feb 27, 2025 Medical Necessity Reason Pt with a Central, PICC or Fol: No Subjective Mr. Harrison is a 65 years old left-handed gentleman with a history of asthma, COPD, arthritis, schizophrenia, he came to the [facility] on with a chief complaint of low back pain for one month. I saw him on 11/15/2024 for "unable to walk" (unremarkable MRI head, T-spine, C- spine showed multilevel degeneration with abnormal T2 signals in the C-spine between C3-C4 and he received surgery) I have seen and examined the patient, I have talked to his nurse, he is doing fine orthopedic surgery saw him and he is to have lumbar spine surgery No change on physical examination WBC/HB/PLT/MCV, 02/25/25: 4.8/12.2/185/98.1 BMP 02/24/2025: Unremarkable Liver function tests, 02/14/2025: Unremarkable HbA1c 11/15/2024: 5.6 Liver function tests, 11/13/2024: Unremarkable TG/HDL/LDL/HDL, 04/2023: 99/150/99/43 11/18/2024: 69/117/80/27 Vitamin B12, 04/2023:410 TSH, 11/14/2024: 3.51 MRI head, 11/15/2024: No acute infarct, intracranial hemorrhage, mass effect, or hydrocephalus. MRI C-spine, 11/16/2024: 1. Degenerative disc disease and facet/ uncinate disease in the cervical spine with associated spinal canal, subarticular, and neural foraminal stenoses as detailed above. 2. There is a degree of congenital spinal canal narrowing contributing to the spinal canal stenoses. 3. T2/stir hyperintense signal in the spinal cord extending from the C3-C5 levels consistent with myelopathy secondary to the spinal canal stenosis at C3-C4. 4. Additional findings as described above MRI T-spine, 11/16/2024: 1. Degenerative disc disease and facet disease in the thoracic spine with associated spinal canal and neural foraminal stenoses as detailed above. 2. Prominent Modic type 2 endplate changes at T5-T6. 3. No signal abnormality in the spinal cord. 4. Additional findings as described above.. MRI T-spine, 02/25/2025: 1. Small area of T2 hyperintensity of the thoracic cord posterior to T3-4 intervertebral disc space associated with anterior thoracic cord margin contact with a disc bulge. Correlate for chronicity. 2. No definitive cord edema. 3. Multilevel disc bulges at T2-3, T3-4, T4-5, T5-6 and throughout the remainder of the thoracic vertebrae to a lesser extent. 4. Imaging findings are largely unchanged from 11/16/24 MRI lumbar spine, 02/25/25: Degenerative changes of the lumbar spine as detailed, most pronounced at L4-Please see above discussion. vital signs Vital Sign Date Time Temp Pulse Resp B/P (MAP) Pulse Ox O2 Delivery O2 Flow Rate FiO2 02/27/25 13:00 99.0 77 17 111/73 (86) 96 99.0 02/27/25 10:00 Room Air 0.0 02/27/25 10:00 21 Total Intake and Output 02/26/25 02/26/25 02/27/25 15:00 23:00 07:00 Intake Total 1800 ml 200 ml Balance 1800 ml 200 ml medications Current Medications Medications Dose Ordered Sig/Maisha Route Start Time Stop Time Status Last Admin Dose Admin Quetiapine Fumarate 100 mg HS PO 02/24/25 22:00 02/26/25 21:54 100 MG Atorvastatin Calcium 20 mg HS PO 02/24/25 22:00 02/26/25 21:55 20 MG Albuterol 2.5 mg Q4HPRN PRN NEB 02/24/25 21:00 02/27/25 09:21 2.5 MG Sertraline HCl 100 mg DAILY PO 02/25/25 10:00 02/27/25 09:08 100 MG Sodium Chloride 10 ml Q8HR IV 02/24/25 22:00 02/27/25 13:14 10 ML Acetaminophen/ Hydrocodone Bitart 1 tab Q4HP PRN PO 02/24/25 21:00 Ondansetron HCl 4 mg Q4HP PRN IV 02/24/25 21:00 Docusate Sodium 100 mg BIDPRN PRN PO 02/24/25 21:00 Acetaminophen 650 mg Q6HP PRN PO 02/24/25 21:00 02/24/25 23:46 650 MG Nitroglycerin 0.4 mg Q5MINP PRN SL 02/24/25 21:30 Morphine Sulfate 2 mg Q30M PRN IV 02/24/25 22:00 Acetaminophen/ Hydrocodone Bitart 1 tab Q6HR PO 02/25/25 12:00 02/27/25 12:31 1 TAB Gabapentin 300 mg TID PO 02/25/25 14:00 02/27/25 13:13 300 MG Lorazepam 1 mg ONCE PRN IV 02/25/25 15:30 objective General: the patient is well developed and nourished. No acute distress. MUSCULOSKELETAL EXAM: Tenderness to palpation in the sacral region MENTAL STATUS: Awake and alert. Oriented to person, place, time and general circumstances. Able to give personal history. SPEECH, LANGUAGE, HIGHER CORTICAL FUNCTION: no aphasia or dysathria. CRANIAL NERVES: Pupils are equal, round and reactive. EOMs full and conjugate. No nystagmus. Facial sensation intact in all three divisions bilaterally. Mandibular strength intact. Facial muscles symmetrical and strength intact. SENSATION: The sensory level to pinprick and light touch at bilateral T2-T3 dermatomes MOTOR: Normal tone in the upper and lower extremity. Normal muscle bulk. No fasciculations. No abnormal movements or posturing. Muscle strength of the major groups in the extremities is 4/5. REFLEXES: Deep tendon reflexes are symmetric, arms: 2-3/4, knees: 3/4, ankles: 1/4. No pathological reflexes. CEREBELLAR/COORDINATION: Finger to nose is normal bilaterally. GAIT/STATION: deferred. Walk slowly with his walker laboratory and microbiology Laboratory Tests 02/25/25 04:35 Test 02/25/25 04:35 Range/Units Serum Glucose 85 74-106 mg/dL Problem List Lower back pain with radiating to the right lower extremity Fecal incontinence T2 myelopathy (MRI) Cervical spine stenosis with myelopathy, status post C-spine surgery in 11/2024 Lumbar spine stenosis Gait disturbance Assessment/Plan Monitoring Supportive treatment Telemetry Holder Up to chair Physical therapy Spine team on case More recommendation per clinical course This medical document was created using an electronic medical record system with [employer] dictation system. Although this document has been carefully reviewed, there may still be some phonetic and typographical errors. These areas are purely typographical due to imperfections of the software programs, and do not reflect any compromise in the patient's medical care. Prognosis poor Plan discussed with: Patient, Other Total Time (mins): 38 JOSE LOPEZ MD Feb 27, 2025 15:49
[2025-02-28] VITALS (11 sets, daily range): BP systolic 94–117; BP diastolic 64–81; PULSE 69–91; RESP 16–20; TEMP 97–98.3; O2SAT 93–100
[2025-02-28 06:04] LABS: Hematocrit 37.6 % (41.0-53.0); Hemoglobin 12.7 g/dL (13.5-17.5); Mean Corpuscular Hemoglobin 33.1 pg (28.0-32.0); Mean Corpuscular Volume 97.9 fL (80.0-100.0); Nucleated Red Blood Cells % 0.0 %
[2025-02-28 06:14] LABS: Alanine Aminotransferase 28 U/L (7-40); Alkaline Phosphatase 59 U/L (46-116); Anion Gap 7 (5-15); BUN/Creatinine Ratio 17.0 (10.0-20.0); Blood Urea Nitrogen 17 mg/dL (9-23); Calcium 9.0 mg/dL (8.7-10.4); Carbon Dioxide 25 mmol/L (20-31); Glucose 90 mg/dL (74-106); Potassium 4.2 mmol/L (3.5-5.1); Total Protein 6.4 g/dL (5.7-8.2)
[2025-02-28 06:15] LABS: Albumin 3.9 g/dL (3.2-4.8); Bilirubin, Total 0.3 mg/dL (0.2-1.0); Chloride 113 mmol/L (98-107); Sodium 145 mmol/L (136-145)
--- NOTE | 2025-02-28 10:27 | DVHPN2 ---
Reviewed: Care Plan Changes from previous H/P or p: No Changes Eyes: No Pain, No Vision change, No Conjunctivae inflammation, No Eyelid inflammation, No Other, No Redness ENT: No Ear pain, No Ear discharge, No Nose pain, No Nose discharge, No Nose congestion, No Mouth pain, No Mouth swelling, No Throat pain, No Throat swelling, No Other Cardiovascular: No Chest Pain, No Palpitations, No Orthopnea, No Paroxysmal Noc. Dyspnea, No Edema, No Lt Headedness, No Other Respiratory: No Cough, No Dry, No Shortness of breath, No SOB with excertion, No Wheezing, No Hemoptysis, No Pleuritic Pain, No Sputum, No Other Gastrointestinal: No Nausea, No Vomiting, No Abdominal Pain, No Diarrhea, No Constipation, No Melena, No Hematochezia, No Other Genitourinary: No Dysuria, No Frequency, No Incontinence, No Hematuria, No Retention, No Other Musculoskeletal: No other, No neck pain, No shoulder pain, No arm pain; back pain; No hand pain, No leg pain, No foot pain Skin: No Rash, No Lesions, No Jaundice, No Bruising, No Other Objective Vitals Vital Signs Date Time Temp Pulse Resp B/P (MAP) Pulse Ox O2 Delivery O2 Flow Rate FiO2 02/28/25 10:23 78 20 99 02/28/25 10:17 Room Air 0.0 02/28/25 10:17 21 02/28/25 09:00 97.0 100/69 (79) 97.0 Intake/Output Intake and Output 02/28/25 07:00 Intake Total 1525 ml Balance 1525 ml Intake Oral 1525 ml # Voids 7 Medications Current Medications Medications Dose Ordered Sig/Maisha Route Start Time Stop Time Status Last Admin Dose Admin Quetiapine Fumarate 100 mg HS PO 02/24/25 22:00 02/27/25 22:30 100 MG Atorvastatin Calcium 20 mg HS PO 02/24/25 22:00 02/27/25 22:29 20 MG Albuterol 2.5 mg Q4HPRN PRN NEB 02/24/25 21:00 02/28/25 10:17 2.5 MG Sertraline HCl 100 mg DAILY PO 02/25/25 10:00 02/28/25 09:13 100 MG Sodium Chloride 10 ml Q8HR IV 02/24/25 22:00 02/28/25 05:19 10 ML Acetaminophen/ Hydrocodone Bitart 1 tab Q4HP PRN PO 02/24/25 21:00 Ondansetron HCl 4 mg Q4HP PRN IV 02/24/25 21:00 Docusate Sodium 100 mg BIDPRN PRN PO 02/24/25 21:00 Acetaminophen 650 mg Q6HP PRN PO 02/24/25 21:00 02/24/25 23:46 650 MG Nitroglycerin 0.4 mg Q5MINP PRN SL 02/24/25 21:30 Morphine Sulfate 2 mg Q30M PRN IV 02/24/25 22:00 Acetaminophen/ Hydrocodone Bitart 1 tab Q6HR PO 02/25/25 12:00 02/28/25 05:27 1 TAB Gabapentin 300 mg TID PO 02/25/25 14:00 02/28/25 05:19 300 MG Lorazepam 1 mg ONCE PRN IV 02/25/25 15:30 Laboratory Results Laboratory Tests 02/28/25 05:05 Chemistry Test 02/28/25 05:05 Albumin 3.9 g/dL (3.2-4.8) Calcium Level 9.0 mg/dL (8.7-10.4) Total Protein 6.4 g/dL (5.7-8.2) LFT Test 02/28/25 05:05 Alanine Aminotransferase (ALT) 28 U/L (7-40) Alkaline Phosphatase 59 U/L (46-116) Aspartate Amino Transferase (AST) 21 U/L (13-40) Total Bilirubin 0.3 mg/dL (0.2-1.0) Urinalysis Test 02/24/25 18:36 Urine Color Light-yellow (Yellow) Urine Clarity Clear (Clear) Urine pH 6.0 (5.0-9.0) Urine Specific [place] 1.021 (1.001-1.035) Urine Protein Trace (Negative) H Urine Ketones Negative (Negative) Urine Blood Negative /uL (Negative) Urine Nitrite Negative (Negative) Urine Bilirubin Negative (Negative) Urine Urobilinogen Normal mg/dL (Negative) Urine Leukocyte Esterase Negative /uL (Negative) Urine RBC 1 /hpf (0 - 3) Urine Microscopic WBC 1 /HPF (0-3) Urine Squamous Epithelial Cells Few /hpf (<5) Urine Bacteria None seen /hpf (None Seen) Urine Glucose Normal mg/dL (Normal) Microbiology Microbiology Date/Time Source Procedure Growth Status 02/25/25 02:37 Nose MRSA Screen - Final Complete Labs and/or images reviewed: Labs reviewed by me, Image(s) reviewed by me Assessment/Plan Assessment/Plan Acute severe low back pain: L4-5 lumbar spinal canal stenosis: MRI T-spine and L-spine shows DJD changes at multiple levels, consult for Dr. Wilson appreciated, planning for surgery on Friday, cardiology clearance requested from Dr Sapp: [place] 10 Bowel Incontinence possibly cauda equina syndrome 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 Wilson on 11-19-24, Bilateral lower extremity weakness and unsteady gait: Consult by neurology Dr. Rodriguez appreciated Echocardiogram 11/18/2024, Ejection fraction 65 % C-spine and T-spine syringomyelia Asthma COPD Depression Schizophrenia Hypercholesterolemia Chronic current marijuana abuse: Counseled Time spent 55 minutes Advanced care planning time 20 minutes Patient is full code Plan discussed with: Patient My Orders Orders - TAWANA SAMANO MD Procedure Category Date Status Time Cardiac DIET 02/28/25 Transmitted Diet-2gna,Lofat,Lochol Breakfast Date of Service: Feb 28, 2025 Billing Provider: TAWANA SAMANO MD Common Visit Codes: [id number] INP/OBS CARE(HIGH) TAWANA SAMANO MD Feb 28, 2025 10:27
[2025-03-01] VITALS (11 sets, daily range): BP systolic 98–125; BP diastolic 61–90; PULSE 62–83; RESP 16–20; TEMP 97.8–98.9; O2SAT 95–100
--- NOTE | 2025-03-01 11:06 | DVHPN2 ---
Reviewed: Care Plan Changes from previous H/P or p: No Changes Eyes: No Pain, No Vision change, No Conjunctivae inflammation, No Eyelid inflammation, No Other, No Redness ENT: No Ear pain, No Ear discharge, No Nose pain, No Nose discharge, No Nose congestion, No Mouth pain, No Mouth swelling, No Throat pain, No Throat swelling, No Other Cardiovascular: No Chest Pain, No Palpitations, No Orthopnea, No Paroxysmal Noc. Dyspnea, No Edema, No Lt Headedness, No Other Respiratory: No Cough, No Dry, No Shortness of breath, No SOB with excertion, No Wheezing, No Hemoptysis, No Pleuritic Pain, No Sputum, No Other Gastrointestinal: No Nausea, No Vomiting, No Abdominal Pain, No Diarrhea, No Constipation, No Melena, No Hematochezia, No Other Genitourinary: No Dysuria, No Frequency, No Incontinence, No Hematuria, No Retention, No Other Musculoskeletal: No other, No neck pain, No shoulder pain, No arm pain; back pain; No hand pain, No leg pain, No foot pain Skin: No Rash, No Lesions, No Jaundice, No Bruising, No Other Objective Vitals Vital Signs Date Time Temp Pulse Resp B/P (MAP) Pulse Ox O2 Delivery O2 Flow Rate FiO2 03/01/25 08:58 98.2 65 20 118/71 (87) 96 98.2 03/01/25 08:00 Room Air* 0 21 Intake/Output Intake and Output 03/01/25 06:59 Intake Total 800 ml Balance 800 ml Intake Oral 800 ml # Voids 7 Medications Current Medications Medications Dose Ordered Sig/Maisha Route Start Time Stop Time Status Last Admin Dose Admin Quetiapine Fumarate 100 mg HS PO 02/24/25 22:00 02/28/25 21:33 100 MG Atorvastatin Calcium 20 mg HS PO 02/24/25 22:00 02/28/25 21:33 20 MG Albuterol 2.5 mg Q4HPRN PRN NEB 02/24/25 21:00 03/01/25 07:44 2.5 MG Sertraline HCl 100 mg DAILY PO 02/25/25 10:00 03/01/25 10:19 100 MG Sodium Chloride 10 ml Q8HR IV 02/24/25 22:00 03/01/25 03:50 10 ML Acetaminophen/ Hydrocodone Bitart 1 tab Q4HP PRN PO 02/24/25 21:00 Ondansetron HCl 4 mg Q4HP PRN IV 02/24/25 21:00 Docusate Sodium 100 mg BIDPRN PRN PO 02/24/25 21:00 Acetaminophen 650 mg Q6HP PRN PO 02/24/25 21:00 02/24/25 23:46 650 MG Nitroglycerin 0.4 mg Q5MINP PRN SL 02/24/25 21:30 Morphine Sulfate 2 mg Q30M PRN IV 02/24/25 22:00 Acetaminophen/ Hydrocodone Bitart 1 tab Q6HR PO 02/25/25 12:00 02/28/25 17:58 1 TAB Gabapentin 300 mg TID PO 02/25/25 14:00 02/28/25 21:33 300 MG Lorazepam 1 mg ONCE PRN IV 02/25/25 15:30 Laboratory Results Laboratory Tests 02/28/25 05:05 Urinalysis Test 02/24/25 18:36 Urine Color Light-yellow (Yellow) Urine Clarity Clear (Clear) Urine pH 6.0 (5.0-9.0) Urine Specific [place] 1.021 (1.001-1.035) Urine Protein Trace (Negative) H Urine Ketones Negative (Negative) Urine Blood Negative /uL (Negative) Urine Nitrite Negative (Negative) Urine Bilirubin Negative (Negative) Urine Urobilinogen Normal mg/dL (Negative) Urine Leukocyte Esterase Negative /uL (Negative) Urine RBC 1 /hpf (0 - 3) Urine Microscopic WBC 1 /HPF (0-3) Urine Squamous Epithelial Cells Few /hpf (<5) Urine Bacteria None seen /hpf (None Seen) Urine Glucose Normal mg/dL (Normal) Microbiology Microbiology Date/Time Source Procedure Growth Status 02/25/25 02:37 Nose MRSA Screen - Final Complete Labs and/or images reviewed: Labs reviewed by me, Image(s) reviewed by me Assessment/Plan Assessment/Plan Acute severe low back pain: L4-5 lumbar spinal canal stenosis: MRI T-spine and L-spine shows DJD changes at multiple levels, consult for Dr. Wilson appreciated, planning for surgery on Friday, cardiology clearance requested from Dr Sapp: [place] 10 Bowel Incontinence possibly cauda equina syndrome 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 Wilson on 11-19-24, Bilateral lower extremity weakness and unsteady gait: Consult by neurology Dr. Rodriguez appreciated Echocardiogram 11/18/2024, Ejection fraction 65 % C-spine and T-spine syringomyelia Asthma COPD Depression Schizophrenia Hypercholesterolemia Chronic current marijuana abuse: Counseled Time spent 56 minutes Advanced care planning time 20 minutes Patient is full code Plan discussed with: Patient Date of Service: Mar 01, 2025 Billing Provider: TAWANA SAMANO MD Common Visit Codes: [id number] INP/OBS CARE(HIGH) TAWANA SAMANO MD Mar 01, 2025 11:06
[2025-03-01] MEDS ORDERED: D5W/SOD CHLO 0.9% 1,000 ML IV SCH (11:15)
--- NOTE | 2025-03-01 11:41 | PRN ---
Misceleneous Note Note Note Surgery cancelled due to lack of OR accommodation Plan to bring patient back as a outpatient in 2 weeks Call to make a appointment for pro op with Dr Wilson. [id number] [facility], [place] [address] Call with questions Katerina Hsu [facility] Orthopaedic Spine Surgery nurse practitioner For Dr Kristin Wilson Office Patient was examined, chart reviewed, labs evaluated, and diagnostic studies and findings analyzed. Case was discussed with Dr. Ambrocio Wilson who formulated the plan of care. This medical document was created using an electronic medical record system with [employer] dictation system. Although this document has been carefully reviewed, there might still be some phonetic and typographical errors. These areas are purely typographical due to imperfections of the software programs, and do not reflect any compromise in the patient's medical care. YUNIEL HSU NP Mar 01, 2025 11:41
[2025-03-01] MEDS ORDERED: CARISOPRODOL 350 MG TAB PO SCH (14:00)
[2025-03-01] MEDS ORDERED: METHOCARBAMOL 500 MG TAB PO SCH (18:00)
--- NOTE | 2025-03-02 08:13 | DVHDS2 ---
Discharge Summary Date of Admission Feb 24, 2025 at 21:30 Date of Discharge: Feb 22, 2025 Admitting Diagnosis Severe back pain with lumbar radiculopathy Wounds: None Labs/Diagnostic Data: Laboratory Results Test 02/28/25 05:05 02/24/25 18:36 White Blood Count 5.5 10^3/uL (4.4-10.8) Red Blood Count 3.84 10^6/uL (4.5-5.90) Hemoglobin 12.7 g/dL (13.5-17.5) Hematocrit 37.6 % (41.0-53.0) Mean Corpuscular Volume 97.9 fL (80.0-100.0) Mean Corpuscular Hemoglobin 33.1 pg (28.0-32.0) Mean Corpuscular Hemoglobin Concent 33.8 g/dL (32.0-36.0) Red Cell Distribution Width 14.1 % (11.8-14.3) Platelet Count 188 10^3/uL (140-450) Mean Platelet Volume 7.6 fL (6.9-10.8) Neutrophils (%) (Auto) 46.9 % (37.0-80.0) Lymphocytes (%) (Auto) 34.7 % (10.0-50.0) Monocytes (%) (Auto) 10.8 % (0.0-12.0) Eosinophils (%) (Auto) 7.1 % (0.0-7.0) Basophils (%) (Auto) 0.5 % (0.0-2.0) Neutrophils # (Auto) 2.6 10 ^3/uL (1.6-8.6) Lymphocytes # (Auto) 1.9 10 ^3/uL (0.4-5.4) Monocytes # (Auto) 0.6 10 ^3/uL (0-1.3) Eosinophils # (Auto) 0.4 10 ^3/uL (0-0.8) Basophils # (Auto) 0 10 ^3/uL (0-0.2) Nucleated Red Blood Cells 0.0 % Sodium Level 145 mmol/L (136-145) Potassium Level 4.2 mmol/L (3.5-5.1) Chloride Level 113 mmol/L (98-107) Carbon Dioxide Level 25 mmol/L (20-31) Anion Gap 7 (5-15) Blood Urea Nitrogen 17 mg/dL (9-23) Creatinine 1.00 mg/dL (0.700-1.30) Glomerular Filtration Rate Calc 84 mL/min (>90) BUN/Creatinine Ratio 17.0 (10.0-20.0) Serum Glucose 90 mg/dL (74-106) Calcium Level 9.0 mg/dL (8.7-10.4) Total Bilirubin 0.3 mg/dL (0.2-1.0) Aspartate Amino Transferase (AST) 21 U/L (13-40) Alanine Aminotransferase (ALT) 28 U/L (7-40) Alkaline Phosphatase 59 U/L (46-116) Total Protein 6.4 g/dL (5.7-8.2) Albumin 3.9 g/dL (3.2-4.8) Urine Color Light-yellow (Yellow) Urine Clarity Clear (Clear) Urine pH 6.0 (5.0-9.0) Urine Specific [place] 1.021 (1.001-1.035) Urine Protein Trace (Negative) Urine Ketones Negative (Negative) Urine Blood Negative /uL (Negative) Urine Nitrite Negative (Negative) Urine Bilirubin Negative (Negative) Urine Urobilinogen Normal mg/dL (Negative) Urine Leukocyte Esterase Negative /uL (Negative) Urine RBC 1 /hpf (0 - 3) Urine Microscopic WBC 1 /HPF (0-3) Urine Squamous Epithelial Cells Few /hpf (<5) Urine Bacteria None seen /hpf (None Seen) Urine Glucose Normal mg/dL (Normal) Other Laboratory Tests 02/28/25 05:05 Brief Hx & Hospital Course: 65-year-old male with a history of COPD depression asthma schizophrenia hypercholesterolemia chronic current marijuana abuse came in for severe pain bilateral lower extremity swelling with a weakness. CT showed L4-5 lumbar spinal stenosis and MRI T-spine and L-spine shows DJD changes at multiple levels. Patient was treated with the pain medication muscle relaxant and physical therapy was ordered patient has had C-spine stenosis and underwent cervical diskectomy laminectomy and foraminectomy by Dr. Cruz on 11/19/2024. Dr. Wilson was planning for L-spine surgery during this visit on 03/01/2025 but had to postpone it because of lack of availability of operating room time. He advised the patient to come back in two weeks as an outpatient for scheduling L- spine surgery. While awaiting proper discharge the patient decided to leave AMA and left AMA. He verbalized understanding possible complications, Consults/Reason for consult Spine surgeon Dr. Wilson Operations or Procedures MRI lumbar spine Condition at Discharge: Fair Final Diagnosis/Problems List Acute severe low back pain: L4-5 lumbar spinal canal stenosis: MRI T-spine and L-spine shows DJD changes at multiple levels, consult for Dr. Wilson appreciated, planning for surgery on Friday, cardiology clearance requested from Dr Sapp: [place] 10 Bowel Incontinence possibly cauda equina syndrome 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 Wilson on 11-19-24, Bilateral lower extremity weakness and unsteady gait: Consult by neurology Dr. Rodriguez appreciated Echocardiogram 11/18/2024, Ejection fraction 65 % C-spine and T-spine syringomyelia Asthma COPD Depression Schizophrenia Hypercholesterolemia Chronic current marijuana abuse: Counseled Discharge Disposition: AMA Discharge Instruct/Medications Diet comment: Not applicable Patient left AMA Activity comment: Not applicable Patient left AMA Follow Up/Referral: Not applicable Patient left AMA Medications: Not applicable Patient left AMA Scheduled Albuterol Sulfate (Ventolin), 2.5 MG INH Q6HP, (Reported) Ascorbic Acid (Vitamin C Tablet), 500 MG PO BID Quetiapine Fumerate (Quetiapine Fumarate), 2 TAB PO HS, (Reported) Sertraline Hcl (Zoloft), 200 MG PO DAILY, (Reported) Simvastatin (Simvastatin), 40 MG PO DAILY, (Reported) Scheduled PRN Ibuprofen Micronized (Ibuprofen), 1 TAB PO Q8HPRN PRN for pain, (Reported) Methocarbamol (Methocarbamol), 750 MG PO TID PRN 39 (Time taken for discharge summary 39 minutes) Discharge Statement: "Patient was advised to return to the ER or call 911 if any headaches, dizziness, shortness of breath, chest pain, abdominal pain, bleeding, fevers, or worsening of medical condition. Patient was counseled about treatment plan, medications, possible side effects, patientverbalized understanding. All questions were answered to the best of my ability. This discharge took greater then 30 minutes in planning, reviewing documentation, counseling the patient, and discussing with other team members." ASSESSMENT ASSESSMENT Hospital Course Left AMA Assessment Date of Service: Mar 02, 2025 Billing Provider: TAWANA SAMANO MD Common Visit Codes: [id number] DISCH DAY >30min TAWANA SAMANO MD Mar 02, 2025 08:12
== END 2025-03-01 17:51 | disposition left against medical advice (07) | DRG 552 ==
LOC: ER 16:45 → OVERFLOW 21:30 → EAST 02-25 02:24
PROVIDERS: ADMIT Family Medicine; ATTEND Family Medicine
DX: M48.062 Spinal stenosis, lumbar region with neurogenic claudication (principal); G95.0 Syringomyelia and syringobulbia; Z79.01 Long term (current) use of anticoagulants; G83.4 Cauda equina syndrome; J44.89 Other specified chronic obstructive pulmonary disease; F32.A Depression, unspecified; F20.9 Schizophrenia, unspecified; F12.10 Cannabis abuse, uncomplicated; Z53.29 Procedure and treatment not carried out because of patient's decision for other reasons; E78.00 Pure hypercholesterolemia, unspecified; M51.16 Intervertebral disc disorders with radiculopathy, lumbar region; F41.9 Anxiety disorder, unspecified; M47.26 Other spondylosis with radiculopathy, lumbar region; R15.9 Full incontinence of feces; Z79.899 Other long term (current) drug therapy
CPT/HCPCS: 36415; 71045; 72100; 72131; 72146; 72148; 80053; 81001; 85025; 87081; 93005; 94640; 96374; 96375; 97110; 97116; 97163; G0378; J2405

== ENCOUNTER 2025-02-24 16:47 | Emergency (ER) | payer MEDICARE, MEDICAID ==
[2025-02-25] MEDS ORDERED: ALBUTEROL SULF 2.5 MG/0.5ML(0.5%) NEB SOLN ONE (13:34)
== END 2025-02-24 16:50 | disposition left against medical advice (07) ==
LOC: EDBD 16:47 → ER 16:47
DX: M79.606 Pain in leg, unspecified (principal); Z53.21 Procedure and treatment not carried out due to patient leaving prior to being seen by health care provider